=== PATIENT | female | born 1940 | race Caucasian/White ===

== ENCOUNTER 2017-02-19 00:27 | Day surgery (SDC) | payer MEDICARE ==
[2015-12-19 08:30] VITALS: Ht 149.9 cm; Wt 49.0 kg
--- NOTE | 2017-02-18 16:14 | RADIOLOGY IMAGING REPORT ---
FACILITY: [facility] - [place] PATIENT NAME: Pamela Correa : 1940 MR: [id number] V: [id number] EXAM DATE: ORDERING PHYSICIAN: SANTOS MONAE TECHNOLOGIST: Location: [facility] [place] Patient: Pamela Correa : 1940 Visit/Account:[id number] Date of Sevice: 02/18/2017 CHEST PA AND LAT INDICATION: Preoperative COMPARISON: None available FINDINGS: The cardiac silhouette is normal in size. Moderate sized gastric hernia in the midline lo wer chest. Bandlike scarring or subsegmental atelectasis in the right lower lung. Prominent epicardia l fat in the left lower lung adjacent to the cardiac apex versus chronic scarring in this area. Other webster clear lungs. Severe right glenohumeral joint degeneration. No acute osseous abnormality. Exagger ated thoracic kyphosis. Mild chronic wedging of multiple thoracic vertebral bodies. No pleural fluid. IMPRESSION: 1. No acute finding. 2. Moderate sized gastric/hiatal hernia. 3. Right basilar subsegmental atelectasis versus scarring. Left basilar scarring versus prominence of epicardial space fat. Report Dictated By: Lebron Baker MD at 02/18/2017 4:09 PM Report E-Signed By: Lebron Baker MD at 02/18/2017 4:11 PM WSN:[email or web address]
[2017-02-19] VITALS (7 sets, daily range): BP systolic 100–164; BP diastolic 47–86
[~2017-02-19] VITALS: Ht 149.9 cm; Wt 49.0 kg
[~2017-02-19 00:27] MED LIST: ALBU2.5V36 INH; ALBU8.5H IH; AMLO-96 PO; ASCO250T86 PO; ASPI81TA94 PO; BUSP7.5T7 PO; CA C1TAB11 PO; CHOL200021 PO; CHOL400C10 PO; DOXY25TA11 PO; FERR15DR22 PO; FERR325T24 PO; FLUT1DIS27 IH; FLUT1DIS28 IH; FLUT1DIS28 INH; Ferrous Sulfate PO; GABA-547 PO; GABA-549 PO; HYDR-317 PO; IPRA0.2S8 IH; LACT1CAP12; LISI5TAB25 PO; LOR5/325 PO; LOSA50TA72 PO; MELA3TAB31 PO; MULT-976 PO; Melatonin PO; OMEG300C PO; OXYC-373 PO; OXYGENHOME INH; PANT40TA65 PO; POTA-23 PO; ROPI0.5T25 PO; TRAM-420 PO; VALE100C2 PO; [UNRECOGNIZED DRUG - CODE] PO
[2017-02-19] MEDS ORDERED: PROPOFOL EMUL(*) 10MG/ML 20 ML 60 ML ONE (07:06)
[2017-02-19] MEDS ORDERED: LIDOCAINE MPF 1% 5 ML VIAL ONE (07:06)
--- NOTE | 2017-02-19 07:25 | Post Operative Progress Note ---
Post Operative Progress Note Date: Feb 19, 2017 Time: 10:21 Surgeon: syed Anesthesia: [place] Pre-Op Diagnosis: anemia and mucous discharge rectum Post-Op Diagnosis: large hiatal hernia and gastritis normal rectal stump Procedure(s): egd and sigmoidoscopy SANTOS MONAE MD Feb 19, 2017 07:25
--- NOTE | 2017-02-19 07:26 | Short(Outpt) Discharge Summary ---
Discharge Summary Reason for Hosp/Final Diag: (1) Rectal discharge Hospital Course & Plan: normal rectal stump (2) Anemia Status: Acute Hospital Course & Plan: large hiatal hernia and mild gastritis Departure Discharge to: Home Discharge Instructions Home Meds Reported Medications Melatonin (MELATONIN) 3 Mg Tablet, 2 TAB PO QHS 02/17/17 Oxycodone Hcl/Acetaminophen (OXYCODONE-ACETAMINOPHEN 5-325) Unknown Strength Tablet, PO PRN, TAB 02/17/17 Albuterol Sulfate 0.083% (ALBUTEROL SULFATE 0.083%) 2.5 Mg/3 Ml Vial.neb, 2.5 MG INH QID, INH 02/17/17 Albuterol Sulfate 90 Mcg/Act (PROAIR HFA 90 MCG/ACT) 8.5 Gm Hfa.aer.ad, 2-4 PUFF IH PRN, INHALER 02/17/17 Fluticasone/Salmeterol (ADVAIR 250-50 DISKUS) 1 Each Disk.w.dev, 1 PUFF IH BID 02/17/17 Oxygen (OXYGEN) Inha, 3 L INH cont., L 04/24/15 Ipratropium [place] (IPRATROPIUM BROMIDE) 0.2 Mg/1 Ml Solution, 1 ML IH QID 08/07/14 Ca Carbonate/Vitamin D3/Vit K (VIACTIV SOFT CHEW TABLET) 1 Each Tab.chew, 1 EACH PO DAILY, TAB.CHEW 12/14/13 Tramadol Hcl (TRAMADOL HCL) 50 Mg Tablet, 50-100 MG PO Q6H Y for PAIN 12/14/13 Cholecalciferol (Vitamin D3) (VITAMIN D) 2,000 Unit Capsule, 2000 UNIT PO DAILY , CAPSULE 12/14/13 Losartan Potassium (LOSARTAN POTASSIUM) 50 Mg Tablet, 50 MG PO QAM 11/21/13 Ropinirole Hcl (ROPINIROLE HCL) 0.5 Mg Tablet, 0.5 MG PO BID Y for SPASMS take 1/2 tab 2-3 times a day as needed for leg cramps 11/21/13 Aspirin (ASPIRIN) 81 Mg Tab.chew, 81 MG PO QDAY, TAB.CHEW TAKE 1 TABLET BY MOUTH EVERY DAY 11/21/13 Ascorbic Acid (VITAMIN C) 250 Mg Tablet, 250 MG PO QDAY 11/21/13 [place]-3 Fatty Acids (FISH OIL) 300 Mg Capsule, 300 MG PO QDAY, CAPSULE 11/21/13 Multivitamin (MULTIPLE VITAMINS) 1 Each Tablet, 1 EACH PO QDAY 11/21/13 Discontinued Reported Medications Buspirone Hcl (BUSPIRONE HCL) 7.5 Mg Tablet, 1 TAB PO QDAY, #10 TAB 02/17/17 Lisinopril (LISINOPRIL) Unknown Strength Tablet, PO QDAY, TAB 02/17/17 Gabapentin (GABAPENTIN) 100 Mg Capsule, 100 MG PO QDAYA, CAPSULE 02/17/17 Gabapentin (GABAPENTIN) 300 Mg Capsule, 100 MG PO TID, CAPSULE 12/18/15 Pantoprazole Sodium (PANTOPRAZOLE SODIUM) 40 Mg Tablet.dr, 40 MG PO QAM, TAB.SR 04/24/15 Discontinued Scripts Hydrocodone Bit/Acetaminophen (HYDROCODON-ACETAMINOPHEN 5-325) 1 Each Tablet, 1 EACH PO Q4-6H, #30 TAB Prov:SANTOS MONAE MD 05/07/15 [Melatonin] 3 MG TAB No Conflict Check, 6 MG PO QHS Y for INSOMNIA for 30 Days, TAB Prov:ASHLEY BLOCK MD 12/15/13 Diet: Regular Activity: As Tolerated SANTOS MONAE MD Feb 19, 2017 07:26
[2017-02-19] MEDS ORDERED: MIDAZOLAM 2 MG/2 ML VIAL IVP PRN (09:35)
[2017-02-19] MEDS ORDERED: NORMOSOL R SOLN(*) 1000 ML BAG 1,000 ML IV PRN (09:35)
[2017-02-19] MEDS ORDERED: LIDOCAINE/SOD BICARB 8.4% SYR ID ONE (09:35)
[2017-02-19] MEDS ORDERED: KETAMINE HCL 500 MG/10 ML VIAL ONE (09:48)
[2017-02-19] MEDS ORDERED: PANT40TA65 PO (11:09)
--- NOTE | 2017-02-19 11:54 | NACHTIGAL EGD ---
EVENT DATE: February 19, 2017 SURGEON: Jai Pritchett MD ANESTHESIOLOGIST: Pérez Davies MD ANESTHESIA: Sedation. PREOPERATIVE DIAGNOSIS Anemia. POSTOPERATIVE DIAGNOSIS Gastritis and a large hiatal hernia. PROCEDURE PERFORMED Esophagogastroduodenoscopy. DESCRIPTION OF PROCEDURE The patient was placed in left lateral decubitus position and given intravenous sedation. Flexible gastroscope was inserted. GE junction was at 30 cm, distinct. No ulceration or inflammation. No narrowing. Scope passed through this nicely. The proximal esophagus appeared to be normal. Upon entering the stomach, she had some findings suggestive of some gastritis with some punctate hemorrhages. We passed through the stomach, through the pylorus to the second and third portions of the duodenum, which were normal. The duodenal bulb was normal. The pylorus was normal. The antrum was normal. In the body of the stomach again we noted these gastritis findings. She had a large hiatal hernia. It appeared most of her stomach was herniated. The scope was retroflexed, and no fundic lesions were noted. Scope was then removed. MTDAbby
--- NOTE | 2017-02-19 11:58 | NACHTIGAL COLONOSCOPY ---
EVENT DATE: February 19, 2017 SURGEON: Jai Pritchett MD ANESTHESIOLOGIST: Pérez Davies MD ANESTHESIA: Sedation PREOPERATIVE DIAGNOSIS Mucous discharge from the rectum. POSTOPERATIVE DIAGNOSIS Normal rectal stump. PROCEDURE PERFORMED Sigmoidoscopy. DESCRIPTION OF PROCEDURE The patient was placed in the left lateral decubitus position, given intravenous sedation. Perianal examination was unremarkable. The skin was not excoriated. I could not identify any thrombosed or prolapsing hemorrhoids. Digital exam was unremarkable. The flexible colonoscope was inserted, advanced 15 cm. I could not advance any further than this. Stump was cleaned out well. I could not identify any mucosal abnormalities, no polyps or tumors , no inflammation. The patient tolerated the procedure well. No apparent complication. MTDD
== END 2017-02-19 12:15 | disposition home or self-care (01) ==
LOC: OR 00:27
PROVIDERS: ATTEND Surgery
DX: K62.89 Other specified diseases of anus and rectum (principal); D64.9 Anemia, unspecified; K29.70 Gastritis, unspecified, without bleeding; K44.9 Diaphragmatic hernia without obstruction or gangrene
CPT/HCPCS: 00811; 43235; 45330; 71046; J2001; J2704; J3490

== ENCOUNTER 2017-09-24 07:12 | Outpatient (RCR) | payer MEDICARE ==
[2015-12-19 08:30] VITALS: BMI 23.8
[2017-09-23 18:39] LABS: PLATELET COUNT, AUTOMATED 832 K/uL (150-450)
[~2017-09-24 07:12] MED LIST changes: -FERR15DR22 PO; +FERR15DR3 PO
--- NOTE | 2017-09-24 13:45 | RADIOLOGY IMAGING REPORT ---
FACILITY: [facility] - [place] PATIENT NAME: Pamela Correa : 1940 MR: [id number] V: [id number] EXAM DATE: ORDERING PHYSICIAN: RIDGE COREA TECHNOLOGIST: Location: [facility] Patient: Pamela Correa : 1940 Visit/Account:[id number] Date of Sevice: 09/24/2017 Exam type: CHEST PA AND LAT History: Shortness of breath Comparison: February 18, 2017. Findings: Bilateral lower lobe scarring again noted. There is hyperinflation of the lung ramírez. No evidence of acute infiltrates, pleural effusions or pulmonary edema. Cardiac silhouette is normal in size. T here Is a moderate size hiatal hernia and the retrocardiac space. There are moderate spondylotic ch anges of the thoracic spine with diffuse osteopenia and multiple compression fractures similar to the prior examination IMPRESSION: 1. Hyperinflation lung ramírez and bilateral lower lobe scarring although no evidence of acute pulmon darleen consolidation Report Dictated By: Sheila Cooper MD at 09/24/2017 1:39 PM Report E-Signed By: Sheila Cooper MD at 09/24/2017 1:41 PM WSN:[email or web address]
--- NOTE | 2017-09-24 14:20 | RADIOLOGY IMAGING REPORT ---
FACILITY: [facility] [place] PATIENT NAME: Pamela Correa : 1940 MR: [id number] V: [id number] EXAM DATE: ORDERING PHYSICIAN: RIDGE COREA TECHNOLOGIST: [facility] Patient: Pamela Correa : 1940 Visit/Account:[id number] Date of Sevice: 09/24/2017 ABDOMEN/PELVIS W/O CONTRAST HISTORY: UTIs, diverticulitis TECHNIQUE: Axial images acquired through the abdomen/pelvis. Coronal and sagittal reformatting also performed. No IV contrast administered. Dose Lowering Technique One of the following dose optimization techniques was utilized in the performance of this exam: Autom ated exposure control; adjustment of the mA and/or kV according to the patient's size; or use of an i terative reconstruction technique. Specific details can be referenced in the facility's radiology C T exam operational policy. COMPARISON: February 11, 2017 FINDINGS: Visualized lung bases: Pleural parenchymal scarring in the lung bases appear similar to the prior ex amination Hepatobiliary: Cholelithiasis although no evidence for ductal dilatation Spleen: Negative. Adrenals: Mild thickening of the left adrenal gland Pancreas: Negative. Kidneys ureters and bladder: Right renal cysts. Nonobstructing calculi in the left renal collecting system measuring up to 3 mm no evidence of hydron ephrosis or hydroureter . There is a moderate amount of air seen within the urinary bladder Genitalia: Negative. GI: There are postsurgical changes from a left hemicolectomy with an ostomy in the left mid abdomen. Small bowel anastomosis again seen in the ileum no evidence of bowel obstruction. Incompletely patricia ged is a large hiatal hernia. An ovoid hypodense collection is again seen projecting just posterior to the greater curvature the stomach this may represent residual pseudocyst. Vessels/spaces/nodes: Extensive vascular calcifications are seen throughout the abdomen and pelvis Bones/soft tissues: Extensive spondylotic changes of the lumbar spine and a eight millimeter anterol isthesis of L4 with respect L5 appears similar to the prior study Additional findings: None pertinent. IMPRESSION: Pleural parenchyma scarring the lung bases Cholelithiasis although no evidence of a ductal dilatation Nonobstructing nephrolithiasis left kidney measuring up to 3 mm There is a moderate amount of air seen within the urinary bladder. Although this could be related to recent procedure differential diagnosis would include infection with gas-forming organism or a fistu la between the bladder and GI tract. Postsurgical changes from a left hemicolectomy with ostomy in the left mid abdomen. Additional posto perative changes of the small bowel in the right lower quadrant are present Incompletely imaged is a large hiatal hernia Ovoid hypodense collection projecting just posterior to the greater curvature the stomach may represe nt a residual pseudocyst as was present on the prior study. Report Dictated By: Sheila Cooper MD at 09/24/2017 1:57 PM Report E-Signed By: Sheila Cooper MD at 09/24/2017 2:16 PM WSN:[email or web address]
[2017-09-25] MEDS ORDERED: LISI20TA29 PO (13:58)
== END 2017-09-24 18:00 | disposition home or self-care (01) ==
LOC: CT 07:12
PROVIDERS: ATTEND Urology
DX: K80.20 Calculus of gallbladder without cholecystitis without obstruction (principal); B96.20 Unspecified Escherichia coli [E. coli] as the cause of diseases classified elsewhere; N20.0 Calculus of kidney; Z90.49 Acquired absence of other specified parts of digestive tract; Z93.3 Colostomy status; K44.9 Diaphragmatic hernia without obstruction or gangrene
CPT/HCPCS: 36415; 71046; 74176; 81001; 82040; 82247; 82310; 82374; 82435; 82565; 82947; 84075; 84132; 84155; 84295; 84450; 84460; 84520; 85025; 87077; 87088; 87186

== ENCOUNTER 2017-09-28 02:16 | Day surgery (SDC) | payer MEDICARE ==
[2015-12-19 08:30] VITALS: Ht 147.3 cm; Wt 45.8 kg
--- NOTE | 2017-09-25 15:11 | HISTORY AND PHYSICAL ---
DATE OF ADMISSION: September 28, 2017 PRIMARY DIAGNOSIS Recurrent urinary tract infections HISTORY OF PRESENT ILLNESS The patient is a 77-year-old white female who was referred to Urology Clinic by Dr. Wen for recurrent urinary tract infections over the past several months. She has been on multiple antibiotics over that ensuing time. She has had some urine cultures in the past which have positive for E. coli as well as multiple organisms. The patient states that when she is on antibiotics, her symptoms of dysuria and lower abdominal pain greatly [place], but two to five days after stopping medicines, her symptoms returned. She denies history of kidney infection, high fever, chills, gross hematuria, pneumaturia, or diffuse abdominal pain. She has had several CTs over the past several years for complications of diverticular abscess, which all have been showing normal kidneys. However, on my review of these films, there was a small amount of air noted in the bladder in December 2015 which had not been present on a film done in July 2014. CT scan performed in January 2017 also showed a small amount of air in the bladder. Most recent film two days ago revealed a 2 mm right lower pole calcification and also a significant amount of air in the interior bladder. Current urine is growing out gram-negative aurelio. Most recent GI history began in January 2014 when she presented with a diverticular abscess which was originally percutaneously drained and then underwent a sigmoid colectomy with colostomy and Susan pouch. She had a colonoscopy of the stoma and stump in March 2014 which was normal except for diverticula. In April 2014, she underwent colostomy takedown, however, had a small bowel necrosis with perforation which resulted in exploration with small bowel resection and another colostomy. A month later, she developed an intra- abdominal abscess and required CT drainage times two. 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 In November 2014, she was noted to have a small bowel anastomotic stricture and underwent colonoscopy with balloon dilation of this. In April 2015, she underwent exploratory laparotomy with enterectomy with a primary anastomosis and excision of the enterocutaneous fistula. In December 2015, she presented with a small bowel obstruction which resolved after conservative treatment. She last underwent a negative EGD and stump colonoscopy in February of this past year. These findings were discussed with the patient and her family with primary concern being a fistula tract between her GI tract and bladder. She is now being brought to the operating room for planned anesthetic cystoscopy with exam unremarkable anesthesia. PAST MEDICAL HISTORY 1. Neuropathy with restless leg syndrome. 2. Hypercholesterolemia. 3. Hypertension. 4. COPD. 5. Hiatal hernia. 6. Diverticulitis. 7. Degenerative joint disease. 8. History of UTIs. PAST SURGICAL HISTORY 1. Ear surgery. 2. Bilateral cataracts. 3. Appendectomy age 17. 4. Multiple GI surgeries as per HPI. SOCIAL HISTORY Patient is , lives in [place], [place]. She has a significant smoking history, however, stopped approximately eight years ago. CURRENT MEDICATIONS 1. Melatonin. 2. Protonix. 3. Requip. 4. Atrovent. 5. Albuterol. 6. Aspirin. 7. Multivitamins. 8. Flovent. 9. Tramadol. 10. Percocet. ALLERGIES STATINS, HYDROCODONE, and IODINE. REVIEW OF SYSTEMS Patient denies chest pain, productive cough, fever, chills, bleeding disorder, chronic headaches, or liver disease. PHYSICAL EXAMINATION GENERAL: Patient is a well-developed, thin, white female in no acute distress. HEENT: Normocephalic, atraumatic. CHEST: Clear to auscultation bilaterally. CARDIOVASCULAR: Regular rhythm. ABDOMEN: Soft, nontender. Her stoma is pink and viable. She has no peritoneal signs. GENITOURINARY: Deferred to the operating room. EXTREMITIES: Without clubbing, cyanosis, or edema. NEUROLOGIC: Nonfocal. IMPRESSION A 77-year-old white female with a history of multiple intra-abdominal procedures from diverticular abscesses, now with persistent urinary tract infections with air in bladder on CT scan for the past year and a half, concerning for fistula tract between her bladder and gastrointestinal tract. PLAN Will perform anesthetic cystoscopy, possible bilateral retrograde pyelograms, cystogram, and exam under anesthesia. STEPHANIED
[~2017-09-28] VITALS: Ht 147.3 cm; Wt 45.8 kg
[~2017-09-28 02:16] MED LIST changes: +LISI20TA29 PO
[2017-09-28 08:50] VITALS: BP 143/55
[2017-09-28] MEDS ORDERED: PROPOFOL EMUL(*) 10MG/ML 20 ML 0 ML ONE (08:50)
[2017-09-28] MEDS ORDERED: fentaNYL CITR 100 MCG/2 ML AMP ONE ×2 (08:51→12:35)
[2017-09-28] MEDS ORDERED: LIDOCAINE/SOD BICARB 8.4% SYR ID ONE (08:55)
[2017-09-28] MEDS ORDERED: NORMOSOL R SOLN(*) 1000 ML BAG 1,000 ML IV PRN (08:55)
[2017-09-28] MEDS ORDERED: ceFAZolin(*) 1 GM VIAL 1 GM, GENTAMICIN(*) 80 MG/2 ML VIAL 60 MG in NS 0.9% IRRIGATION ... IR ONE (08:55)
[2017-09-28] MEDS ORDERED: MIDAZOLAM 2 MG/2 ML VIAL IVP PRN (08:55)
[2017-09-28] MEDS ORDERED: LEVOFLOXACIN/D5W*500 MG/100 ML 100 ML IVPB ONE (08:55)
[2017-09-28] MEDS ORDERED: IOPAMIDOL-200 50 ML VIAL IS ONE (10:36)
[2017-09-28] MEDS ORDERED: DEXAMETHASONE SOD 4 MG/ML VIAL ONE ×2 (10:55→12:14)
[2017-09-28] MEDS ORDERED: ONDANSETRON 4 MG/2 ML VIAL ONE (10:57)
[2017-09-28] MEDS ORDERED: diphenhydrAMINE 50 MG/ML VIAL ONE (11:22)
[2017-09-28] MEDS ORDERED: methylPREDNIS SUCC 125 MG/2ML ONE (11:30)
[2017-09-28] MEDS ORDERED: CHARCOAL ACT LIQ 25 GM/120 ML PO ONE (12:20)
[2017-09-28] MEDS ORDERED: PHEN200T32 PO (12:53)
[2017-09-28] MEDS ORDERED: OXYB10TA21 PO (12:53)
[2017-09-28] MEDS ORDERED: SULF-198 PO (12:54)
[2017-09-28 13:30] VITALS: BP 130/58
--- NOTE | 2017-09-28 13:37 | PIERCE CYSTOSCOPY ---
EVENT DATE: September 28, 2017 SURGEON: Khoi Morales MD ANESTHESIOLOGIST: Brandon Mojica M.D. ANESTHESIA: General PREOPERATIVE DIAGNOSES Recurrent urinary tract infections. 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 PROCEDURES PERFORMED 1. Cystoscopy with exam under anesthesia. 2. Right internal JJ ureteral stent placement. ESTIMATED BLOOD LOSS Minimal. IV FLUIDS Crystalloids. DRAINS 6-Iranian x 24 cm Contour stent on right and 16-Iranian Gagnon catheter. PATHOLOGY None.. COMPLICATIONS None. CONDITION The patient was taken to recovery room awake and in stable condition. STATEMENT OF MEDICAL NECESSITY The patient is a 77-year-old white female with a prolonged GI history over the past several years which began with diverticular abscess. She subsequently underwent colostomy, which on takedown was complicated by small bowel necrosis and breakdown, which resulted in intra-abdominal abscesses, which required CT percutaneous drainage. 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 She was then noted to have an anastomotic stricture and small bowel anastomosis and underwent balloon dilation for this. Most recently, she had a small bowel obstruction which resolved spontaneously approximately nine months ago. She was referred to Urology Clinic by Dr. Wen for recurrent urinary tract infections, which patient states has been going on for several months. A recent CT scan performed showed a moderate amount of air in the bladder in the anterior portion, consistent with either a gas-forming organism and/or colovesical fistula formation. On review of her prior CT scans, it appeared that she had a small amount of air on her last two scans dating back several months. She is now being brought to the operating room for planned exam under anesthesia cystoscopy and any other indicated procedure. Of note, the patient also gives a history of significant reaction to iodine contrast many years ago with reported hives, rash and other unknown symptoms by her report. DESCRIPTION OF OPERATION PERFORMED The patient was brought to the operating room and after general anesthetic was obtained, she was placed in the dorsal lithotomy position and prepped and draped in the usual sterile manner. Anesthetic cystoscopy was performed with the 21-Iranian sheath and both 30-degree and 70-degree lenses. She had a normal appearing urethra. She had mild squamous metaplasia of the trigone. She had slit-like ureteral orifices in the spectrum of the trigone. There was a mild mass effect just superior and posterior to the right ureteral orifice and approximately 1-1/2 to 2 cm above the right ureteral orifice with an area of dimpled mucosa consistent with a fistulous tract. Given the close location of this questionable fistula tract to the course of the ureter, I opted to place a 6-Iranian x 24 cm Contour stent. First, a 0.35 wire was advanced into the lumen of the ureter and advanced up to the renal pelvis by fluoroscopy. This wire was then used to place the 6x24 stent. The wire was removed. She was noted to have good coiling in the renal pelvis and good coiling in the bladder by direct vision. Given the unknown significance of her iodine contrast, I debated whether to perform retrograde pyelogram or a fistulogram at this point. I spoke to Dr. Olmos on General Surgery, who was somewhat familiar with this lady' s history. He was in agreement to try an activated charcoal test to see if this fistula tract is located to her part that is continuous to her colostomy. If this is positive, this would confirm this as the segment involved. If not, we may proceed with some type of evaluation from the stump. Therefore, a Gagnon catheter was placed. She was awakened in the operating room and taken to the recovery area awake and in stable condition. PLAN We will give her some activated charcoal in the recovery room. We will have her collect her urine over the first 24 hours and then perform microscopic examination for evaluation of activated charcoal. She is also being discharged home on Pyridium, Ditropan and Bactrim. GAYLA
[2017-09-28 13:57] VITALS: BP 138/70
[2017-09-28 14:18] VITALS: BP 127/97
--- NOTE | 2017-09-28 16:07 | RADIOLOGY IMAGING REPORT ---
FACILITY: [facility] [place] PATIENT NAME: Pamela Correa : 1940 MR: [id number] V: [id number] EXAM DATE: ORDERING PHYSICIAN: RIDGE COREA TECHNOLOGIST: Location: [facility] Patient: Pamela Correa : 1940 Visit/Account:[id number] Date of Sevice: 09/28/2017 ADDENDUM #1 There was a voice recognition error in the second line of the findings section which should read the total fluoroscopy time was 0.19 minutes Report Dictated By: Sheila Cooper MD at 10/01/2017 8:38 AM Report E-Signed By: Sheila Cooper MD at 10/01/2017 8:40 AM ORIGINAL REPORT Exam type: C-ARM FLUORO 1 HR History: HX OF MULTIPLE UTI'S, EXAM UNDER ANESTHESIA Comparison: CT abdomen pelvis September 24, 2017 Findings: 10 portable intraoperative C-arm spot views of the abdomen pelvis were submitted. The total prostate be time was 0.19 minutes. The fluoroscopy dose was 7.79 mGray. A cystoscope projects over the lower pelvis. Images demonstrate placement of the guidewire over the expected location of the right ureter. On the final image a right ureteral stent is noted IMPRESSION: 1. As above Report Dictated By: Sheila Cooper MD at 09/28/2017 3:58 PM Report E-Signed By: Sheila Cooper MD at 09/28/2017 4:01 PM WSN:[email or web address]
== END 2017-09-28 13:30 | disposition home or self-care (01) ==
LOC: OR 02:16
PROVIDERS: ATTEND Urology
DX: Z87.440 Personal history of urinary (tract) infections (principal)
CPT/HCPCS: 52332; 76000; C1758; C1769; C1894; C2617; J1100; J1200; J1956; J2405; J2930; J3010; Q9966; J2704

== ENCOUNTER → 2017-09-29 | Outpatient (REF) | payer MEDICARE ==
[2015-12-19 08:30] VITALS: BMI 23.8
[~2017-09-29] MED LIST changes: +OXYB10TA21 PO; +PHEN200T32 PO; +SULF-198 PO
== END ==
LOC: ZZSENDIN 16:33
PROVIDERS: ATTEND Urology
DX: N39.0 Urinary tract infection, site not specified (principal)
CPT/HCPCS: 81001

== ENCOUNTER 2017-10-08 12:01 | Inpatient (IN) | payer MEDICARE ==
[~2017-10-08] VITALS: Ht 147.3 cm; Wt 49.9 kg
[~2017-10-08 12:01] MED LIST changes: -LEVO750T44 PO; -OXYC1TAB78 PO
[2017-10-08] MEDS ORDERED: NS(*) 0.9% 1000 ML BAG 1,000 ML IV ONE ×2 (12:12→13:20)
--- NOTE | 2017-10-08 12:12 | ER Report ---
History and Physical Time Seen By MD: 12:12 HPI/ROS CHIEF COMPLAINT: Abdominal pain, no output of her ostomy 3 days, back pain HISTORY OF PRESENT ILLNESS: 77-year-old female patient presents to emergency room with complaint of abdominal pain, no output of her ostomy 3 days as well as back pain. Patient states she's been having back pain for the past 2 weeks. She denies any injury. She states that she has worsening pain with any type of movement. She states she is not had any loss of bladder control. She states that she has abdominal pain as well. She states that she is hurting all over. She states that she has not had any vomiting but states she has been nauseated. Patient states that she has seen Dr. Morales as well as Dr. Wen for urinary tract infections, has been on several routes of antibiotics. She states that she had a cystoscopy done with Dr. Morales who was concerned there may be a fistula between her bladder and her colon. She states she has pain that seems worse in the lower abdomen. REVIEW OF SYSTEMS: Respiratory: No cough, no dyspnea. Cardiovascular: No chest pain, no palpitations. Gastrointestinal: As noted above Musculoskeletal: As noted above Allergies: Coded Allergies: banana (Verified Allergy, Severe, ITCHING EYES, EARS, THROAT AND BODY, 10/08/17) honey (Verified Allergy, Severe, ITCHING ALL OVER, 10/08/17) iodine (Verified Allergy, Severe, HIVES AND ITCHING ALL OVER, DIZZINES, 10/08/17) morphine (Verified Allergy, Severe, BACK ACHES, 10/08/17) Dtqzoqs-Asj-Xjg Reductase Inhibitor (Verified Allergy, Intermediate, MUSCLE CRAMPING, 10/08/17) milk (Verified Allergy, Intermediate, BLOATING REALLY BAD, 10/08/17) latex (Verified Allergy, Mild, BECAUSE SHE ITCHES IN HER EARS WITH BANANAS, 10/08/17) strawberry (Verified Allergy, Mild, ITCHING, 10/08/17) hydromorphone (Verified Adverse Reaction, Unknown, 10/08/17) causes generalized itching Uncoded Allergies: IODINE SALT (Allergy, Severe, ITCHING ALL OVER, 08/07/14) Home Meds Reported Medications Sulfamethoxazole/Trimet 800-160 Mg Tab (BACTRIM DS TABLET) 1 Each Tablet, 1 TAB PO Q12H, #14 TAB 09/28/17 Phenazopyridine Hcl (PHENAZOPYRIDINE HCL) 200 Mg Tablet, 200 MG PO TID PRN for BURNING WITH URINATION, #30 TAB 09/28/17 Oxybutynin Chloride (DITROPAN XL) 10 Mg Tab.er.24, 10 MG PO QDAY PRN for URGENCY, #10 TAB 09/28/17 Lisinopril (LISINOPRIL) 20 Mg Tablet, 20 MG PO QDAY, TAB 09/25/17 Pantoprazole Sodium (PANTOPRAZOLE SODIUM) 40 Mg Tablet.dr, 40 MG PO QDAY, #90 TAB.SR 02/19/17 Melatonin (MELATONIN) 3 Mg Tablet, 2 TAB PO QHS 02/17/17 Oxycodone Hcl/Acetaminophen (OXYCODONE-ACETAMINOPHEN 5-325) Unknown Strength Tablet, PO PRN, TAB 02/17/17 Albuterol Sulfate 0.083% (ALBUTEROL SULFATE 0.083%) 2.5 Mg/3 Ml Vial.neb, 2.5 MG INH QID, INH 02/17/17 Albuterol Sulfate 90 Mcg/Act (PROAIR HFA 90 MCG/ACT) 8.5 Gm Hfa.aer.ad, 2-4 PUFF IH PRN, INHALER 02/17/17 Fluticasone/Salmeterol (ADVAIR 250-50 DISKUS) 1 Each Disk.w.dev, 1 PUFF IH BID 02/17/17 Oxygen (OXYGEN) Inha, 3 L INH cont., L 04/24/15 Ipratropium [place] (IPRATROPIUM BROMIDE) 0.2 Mg/1 Ml Solution, 1 ML IH QID 08/07/14 Ca Carbonate/Vitamin D3/Vit K (VIACTIV SOFT CHEW TABLET) 1 Each Tab.chew, 1 EACH PO DAILY, TAB.CHEW 12/14/13 Tramadol Hcl (TRAMADOL HCL) 50 Mg Tablet, 50-100 MG PO Q6H PRN for PAIN 12/14/13 Cholecalciferol (Vitamin D3) (VITAMIN D) 2,000 Unit Capsule, 2000 UNIT PO DAILY, CAPSULE 12/14/13 Ropinirole Hcl (ROPINIROLE HCL) 0.5 Mg Tablet, 0.5 MG PO BID PRN for SPASMS take 1/2 tab 2-3 times a day as needed for leg cramps 11/21/13 Aspirin (ASPIRIN) 81 Mg Tab.chew, 81 MG PO QDAY, TAB.CHEW TAKE 1 TABLET BY MOUTH EVERY DAY 11/21/13 Ascorbic Acid (VITAMIN C) 250 Mg Tablet, 250 MG PO QDAY 11/21/13 [place]-3 Fatty Acids (FISH OIL) 300 Mg Capsule, 300 MG PO QDAY, CAPSULE 11/21/13 Multivitamin (MULTIPLE VITAMINS) 1 Each Tablet, 1 EACH PO QDAY 11/21/13 Past Medical/Surgical History Patient has a past medical history of hypertension, hyperlipidemia, asthma, pneumonia, COPD, hiatal hernia, frequent UTI, arthritis, osteoporosis, left ankle fracture, back pain, anemia, alcohol use. Patient has surgical history of laparoscopy, appendectomy, colostomy, bowel perforations, ear surgery, bilateral cataract surgery. Reviewed Nurses Notes: Yes Hx Smoking: Yes (SMOKED FOR 50 YEARS, 1 PPD quit 2009) Smoking Status: Former Smoker, Heavy Tobacco Smoker Exposure to Second Hand Smoke?: No Hx Substance Use Disorder: No Hx Alcohol Use: Yes ("not for a long time.") Constitutional Vital Sign - Last 24 Hours 10/08/17 10/08/17 10/08/17 10/08/17 12:01 12:03 12:04 12:30 Temp 98.3 Pulse ??? 109 Resp 18 B/P (MAP) 112/94 (100) 112/94 103/61 (75) Pulse Ox 91 O2 Delivery Nasal Cannula 10/08/17 10/08/17 10/08/17 10/08/17 12:31 13:00 13:01 13:31 Pulse 95 95 93 B/P (MAP) 114/55 (74) Pulse Ox 91 92 95 10/08/17 10/08/17 10/08/17 10/08/17 13:34 14:00 14:00 14:30 Pulse 92 92 B/P (MAP) 122/52 (75) 129/58 (81) 129/58 (81) 142/60 (87) Pulse Ox 92 94 Physical Exam General Appearance: The patient is alert, has no immediate need for airway protection and no current signs of toxicity. Respiratory: Chest is non tender, lungs are clear to auscultation. Cardiac: regular rate and rhythm Gastrointestinal: Abdomen is soft and tender in the right lower quadrant, no masses, bowel sounds normal. Musculoskeletal: Neck: Neck is supple and non tender. Extremities have full range of motion and are non tender. Skin: No rashes or lesions. DIFFERENTIAL DIAGNOSIS: After history and physical exam differential diagnosis was considered for abdominal pain including but not limited to appendicitis, cholecystitis, gastritis and urinary tract infection. Also included in the differential for back pain including but not limited to muscular pain, herniated disc, spine fracture, intra-abdominal causes and urinary tract infection. Medical Decision Making Data Points Result Diagram: 10/08/17 1206 10/08/17 1206 Laboratory Hematology Test 10/08/17 12:06 10/08/17 12:52 Red Blood Count 4.19 M/uL (4.17-5.56) Mean Corpuscular Volume 86.8 fL (80.0-96.0) Mean Corpuscular Hemoglobin 27.5 pg (26.0-33.0) Mean Corpuscular Hemoglobin Concent 31.7 g/dL (32.0-36.0) Red Cell Distribution Width 16.7 % (11.5-14.5) Mean Platelet Volume 7.1 fL (7.2-11.1) Neutrophils (%) (Auto) 79.2 % (39.4-72.5) Lymphocytes (%) (Auto) 13.2 % (17.6-49.6) Monocytes (%) (Auto) 6.0 % (4.1-12.4) Eosinophils (%) (Auto) 0.7 % (0.4-6.7) Basophils (%) (Auto) 0.9 % (0.3-1.4) Nucleated RBC Relative Count (auto) 0.1 /100WBC Neutrophils # (Auto) 10.1 K/uL (2.0-7.4) Lymphocytes # (Auto) 1.7 K/uL (1.3-3.6) Monocytes # (Auto) 0.8 K/uL (0.3-1.0) Eosinophils # (Auto) 0.1 K/uL (0.0-0.5) Basophils # (Auto) 0.1 K/uL (0.0-0.1) Nucleated RBC Absolute Count (auto) 0.01 K/uL Sodium Level 135 mmol/L (137-145) Potassium Level 5.4 mmol/L (3.5-5.0) Chloride Level 95 mmol/L (98-107) Carbon Dioxide Level 22 mmol/L (22-31) Blood Urea Nitrogen 35 mg/dl (7-18) Creatinine 2.20 mg/dl (0.52-1.04) Glomerular Filtration Rate Calc 21.6 Random Glucose 115 mg/dl (75-110) Lactate 4.3 mmol/L (0.7-2.1) Calcium Level 10.9 mg/dl (8.4-10.2) Total Bilirubin 1.0 mg/dl (0.2-1.3) Aspartate Amino Transf (AST/SGOT) 20 U/L (0-35) Alanine Aminotransferase (ALT/SGPT) 21 U/L (0-56) Alkaline Phosphatase 141 U/L (0-126) C-Reactive Protein 7.4 mg/dl (<1.0) Total Protein 8.4 g/dl (6.3-8.2) Albumin 4.4 g/dl (3.5-5.0) Amylase Level 104 U/L (0-110) Lipase 291 U/L (23-300) Urine Color Nadine Urine Clarity Slightly-cloudy Urine pH 6.0 pH (4.8-9.5) Urine Specific Rock 1.018 Urine Protein 30 mg/dL (NEGATIVE) Urine Glucose (UA) 50 mg/dL (NEGATIVE) Urine Ketones Negative mg/dL (NEGATIVE) Urine Blood Moderate (NEGATIVE) Urine Nitrite Positive (NEGATIVE) Urine Bilirubin Negative (NEGATIVE) Urine Urobilinogen 4.0 mg/dL (0.2-1.9) Urine Leukocyte Esterase Small (NEGATIVE) Urine RBC 671 /HPF (0-2/HPF) Urine WBC 153 /HPF (0-5/HPF) Urine WBC Clumps Many /HPF Urine Squamous Epithelial Cells Many /LPF (NONE-FEW) Urine Bacteria Many /HPF (NONE-FEW) Urine Hyaline Casts Many /LPF (NONE-FEW) Urine Mucus Few /HPF (NONE-FEW) Chemistry Test 10/08/17 12:06 10/08/17 12:52 White Blood Count 12.7 k/uL (4.5-11.0) Red Blood Count 4.19 M/uL (4.17-5.56) Hemoglobin 11.5 g/dL (12.0-16.0) Hematocrit 36.4 % (34.0-47.0) Mean Corpuscular Volume 86.8 fL (80.0-96.0) Mean Corpuscular Hemoglobin 27.5 pg (26.0-33.0) Mean Corpuscular Hemoglobin Concent 31.7 g/dL (32.0-36.0) Red Cell Distribution Width 16.7 % (11.5-14.5) Platelet Count 765 K/uL (150-450) Mean Platelet Volume 7.1 fL (7.2-11.1) Neutrophils (%) (Auto) 79.2 % (39.4-72.5) Lymphocytes (%) (Auto) 13.2 % (17.6-49.6) Monocytes (%) (Auto) 6.0 % (4.1-12.4) Eosinophils (%) (Auto) 0.7 % (0.4-6.7) Basophils (%) (Auto) 0.9 % (0.3-1.4) Nucleated RBC Relative Count (auto) 0.1 /100WBC Neutrophils # (Auto) 10.1 K/uL (2.0-7.4) Lymphocytes # (Auto) 1.7 K/uL (1.3-3.6) Monocytes # (Auto) 0.8 K/uL (0.3-1.0) Eosinophils # (Auto) 0.1 K/uL (0.0-0.5) Basophils # (Auto) 0.1 K/uL (0.0-0.1) Nucleated RBC Absolute Count (auto) 0.01 K/uL Glomerular Filtration Rate Calc 21.6 Lactate 4.3 mmol/L (0.7-2.1) Calcium Level 10.9 mg/dl (8.4-10.2) Total Bilirubin 1.0 mg/dl (0.2-1.3) Aspartate Amino Transf (AST/SGOT) 20 U/L (0-35) Alanine Aminotransferase (ALT/SGPT) 21 U/L (0-56) Alkaline Phosphatase 141 U/L (0-126) C-Reactive Protein 7.4 mg/dl (<1.0) Total Protein 8.4 g/dl (6.3-8.2) Albumin 4.4 g/dl (3.5-5.0) Amylase Level 104 U/L (0-110) Lipase 291 U/L (23-300) Urine Color Nadine Urine Clarity Slightly-cloudy Urine pH 6.0 pH (4.8-9.5) Urine Specific [place] 1.018 Urine Protein 30 mg/dL (NEGATIVE) Urine Glucose (UA) 50 mg/dL (NEGATIVE) Urine Ketones Negative mg/dL (NEGATIVE) Urine Blood Moderate (NEGATIVE) Urine Nitrite Positive (NEGATIVE) Urine Bilirubin Negative (NEGATIVE) Urine Urobilinogen 4.0 mg/dL (0.2-1.9) Urine Leukocyte Esterase Small (NEGATIVE) Urine RBC 671 /HPF (0-2/HPF) Urine WBC 153 /HPF (0-5/HPF) Urine WBC Clumps Many /HPF Urine Squamous Epithelial Cells Many /LPF (NONE-FEW) Urine Bacteria Many /HPF (NONE-FEW) Urine Hyaline Casts Many /LPF (NONE-FEW) Urine Mucus Few /HPF (NONE-FEW) Urinalysis Test 10/08/17 12:52 Urine Color Nadine Urine Clarity Slightly-cloudy Urine pH 6.0 pH (4.8-9.5) Urine Specific [place] 1.018 Urine Protein 30 mg/dL (NEGATIVE) Urine Glucose (UA) 50 mg/dL (NEGATIVE) Urine Ketones Negative mg/dL (NEGATIVE) Urine Blood Moderate (NEGATIVE) Urine Nitrite Positive (NEGATIVE) Urine Bilirubin Negative (NEGATIVE) Urine Urobilinogen 4.0 mg/dL (0.2-1.9) Urine Leukocyte Esterase Small (NEGATIVE) Urine RBC 671 /HPF (0-2/HPF) Urine WBC 153 /HPF (0-5/HPF) Urine WBC Clumps Many /HPF Urine Squamous Epithelial Cells Many /LPF (NONE-FEW) Urine Bacteria Many /HPF (NONE-FEW) Urine Hyaline Casts Many /LPF (NONE-FEW) Urine Mucus Few /HPF (NONE-FEW) EKG/Imaging Imaging EXAMINATION: CT abdomen and pelvis without IV contrast CT lumbar spine without IV contrast (reformatted) HISTORY: Abdominal pain/back pain. COMPARISON: CT abdomen and pelvis from 12/18/2015 and 09/24/2017 TECHNIQUE: Contiguous axial images were obtained from the top of the lung bases through the ischial tuberosities without IV contrast. Sagittal and coronal reformatted images are also submitted. Source data was reformatted at thin slice collimation and small field of view over the lumbar spine. Stored on PACS are reformatted axial, sagittal and coronal lumbar spine series. One of the following dose optimization techniques was utilized in the performance of this exam: Automated exposure control; adjustment of the mA and/or kV according to the patient's size; or use of an iterative reconstruction technique. Specific details can be referenced in the facility's radiology CT exam operational policy. FINDINGS: CT ABDOMEN AND PELVIS: Liver/biliary: The liver is homogeneous. There are several calcified gallstones layering in the gallbladder. There is no biliary ductal dilatation. Pancreas: Negative. Spleen: Negative. Adrenal glands: Negative. Kidneys: There is a right ureteral stent which is new. Nonobstructing punctate left renal stone is unchanged. There is no hydronephrosis. Simple right renal cyst. Pelvic structures: Small amount of air in the urinary bladder. Bowel: Moderate sized hiatal hernia is unchanged. Partial left hemicolectomy with left lower quadrant ostomy. There are no dilated loops of bowel. Peritoneum/retroperitoneum/mesenteries: Negative. Vessels: Extensive atherosclerotic calcifications. Musculoskeletal/body wall: Bony structures are osteopenic. Lymph nodes: Negative. Lower chest: Pleural parenchymal scarring at the lung bases is unchanged. CT LUMBAR SPINE: Alignment: Grade 1 anterolisthesis at L4-5 measuring 8 mm is unchanged. There is rightward curvature of the lumbar spine with the apex at L2-3. Vertebral bodies: Bony structures are osteopenic. There is a chronic superior endplate fracture of L3 and 3 chronic compression fracture of T11, with 50% anterior height loss. No acute fracture is visualized. Posterior elements: Multilevel facet hypertrophy. Disc Spaces: Moderate to severe disc space narrowing and endplate sclerosis at L1-2 and L4-5 is unchanged. Soft tissues: Negative. IMPRESSION: 1. No explanation for acute abdominal pain. 2. Cholelithiasis. 3. Right ureteral stent is new, and is well-positioned. 4. Punctate nonobstructing left renal stones, unchanged. 5. Trace air in the urinary bladder is decreased. 6. Left lower quadrant ostomy, without evidence of bowel obstruction. 7. Moderate hiatal hernia, unchanged. 8. Osteopenia without evidence of acute fracture of the lumbar spine. 9. Chronic superior endplate fracture of L3 and chronic compression fracture of T11, unchanged. 10. Multilevel degenerative disc disease and facet arthropathy, and grade 1 degenerative anterolisthesis at L4-5, unchanged. Report Dictated By: Nayeli Rao MD at 10/08/2017 1:26 PM Report E-Signed By: Nayeli Rao MD at 10/08/2017 1:40 PM ED Course/Re-evaluation ED Course Patient was admitted to an exam room, history and physical were obtained. Differential diagnoses were considered. On examination lungs are clear, heart is regular, abdomen is soft and tender in the lower quadrants. A CBC, CMP, Urinalysis were obtained. Patient had an elevated white count of 12,000, CMP showed that her creatinine gone from 0.8 on September 23 to 2.2 today. BUN was also elevated. A lactate was checked and that was 4.3. CT scan of the abdomen and pelvis showed no acute findings. CT scan of the lumbar spine also showed no acute findings. I discussed the case with Dr. Licea, hospitalist, who agreed with admission. He requested that I speak with Dr. Morales to see what his thoughts were about they stand and what types of antibiotics she needs to be on. I did call and speak with Dr. Morales, urologist, who felt the patient likely needed a Gagnon catheter as well as a broad-spectrum antibiotic which covers forgot parker. I was also able to speak with Dr. Sandy and give him a heads up that the patient was admitted to the hospital and he will be seen in the clinic tomorrow. He stated he would supply of this with the patient tomorrow. Patient verbalized agreement with plan. Patient received 4 doses of 50 g of fentanyl and had persistent pain. I believe that will likely be improved as infection resolves. Decision to Disposition Date: Oct 08, 2017 Decision to Disposition Time: 14:20 Depart Departure Latest Vital Signs Vital Signs Date Time Temp Pulse Resp B/P (MAP) Pulse Ox O2 Delivery O2 Flow Rate FiO2 10/08/17 14:30 92 142/60 (87) 94 10/08/17 12:04 98.3 18 Nasal Cannula Impression: Primary Impression: Sepsis Additional Impression: UTI (urinary tract infection) Condition: Condition Unchanged Disposition: Admitted from ER Referrals: EUN WEN DO (PCP) Problem Qualifiers Primary Impression: Sepsis Sepsis type: sepsis due to unspecified organism Qualified Codes: A41.9 - Sepsis, unspecified organism Additional Impression: UTI (urinary tract infection) Urinary tract infection type: acute cystitis Hematuria presence: with hematuria Qualified Codes: N30.01 - Acute cystitis with hematuria ANNMARIE FAITH Oct 08, 2017 12:12
[2017-10-08] MEDS ORDERED: fentaNYL CITR 100 MCG/2 ML AMP IVP ONE ×4 (12:15→15:00)
[2017-10-08] MEDS ORDERED: ONDANSETRON 4 MG/2 ML VIAL IVP ONE (12:25)
[2017-10-08 12:27] LABS: PLATELET COUNT, AUTOMATED 765 K/uL (150-450)
[2017-10-08] MEDS ORDERED: diphenhydrAMINE 50 MG/ML VIAL IVP ONE (12:30)
[2017-10-08] MEDS ORDERED: methylPREDNIS SUCC 125 MG/2ML IVP ONE (12:30)
[2017-10-08] MEDS ORDERED: IOPAMIDOL 76% 75 ML INFUS BTL 0 ML ONE (12:35)
[2017-10-08] MEDS ORDERED: EMS NS 0.9%(*) 1000 ML BAG 1,000 ML IV ONE (12:35)
--- NOTE | 2017-10-08 13:44 | RADIOLOGY IMAGING REPORT ---
FACILITY: [facility] PATIENT NAME: Pamela Correa : 1940 MR: [id number] V: [id number] EXAM DATE: ORDERING PHYSICIAN: ANNMARIE FAITH TECHNOLOGIST: Location: [facility] - [place] Patient: Pamela Correa : 1940 Visit/Account:[id number] Date of Sevice: 10/08/2017 EXAMINATION: CT abdomen and pelvis without IV contrast CT lumbar spine without IV contrast (reformatted) HISTORY: Abdominal pain/back pain. COMPARISON: CT abdomen and pelvis from 12/18/2015 and 09/24/2017 TECHNIQUE: Contiguous axial images were obtained from the top of the lung bases through the ischial tuberosities without IV contrast. Sagittal and coronal reformatted images are also submitted. Source data was reformatted at thin slice collimation and small field of view over the lumbar spine. Stored on PACS are reformatted axial, sagittal and coronal lumbar spine series. One of the following dose optimization techniques was utilized in the performance of this exam: Autom ated exposure control; adjustment of the mA and/or kV according to the patient's size; or use of an i terative reconstruction technique. Specific details can be referenced in the facility's radiology C T exam operational policy. FINDINGS: CT ABDOMEN AND PELVIS: Liver/biliary: The liver is homogeneous. There are several calcified gallstones layering in the gall bladder. There is no biliary ductal dilatation. Pancreas: Negative. Spleen: Negative. Adrenal glands: Negative. Kidneys: There is a right ureteral stent which is new. Nonobstructing punctate left renal stone is u nchanged. There is no hydronephrosis. Simple right renal cyst. Pelvic structures: Small amount of air in the urinary bladder. Bowel: Moderate sized hiatal hernia is unchanged. Partial left hemicolectomy with left lower quadran t ostomy. There are no dilated loops of bowel. Peritoneum/retroperitoneum/mesenteries: Negative. Vessels: Extensive atherosclerotic calcifications. Musculoskeletal/body wall: Bony structures are osteopenic. Lymph nodes: Negative. Lower chest: Pleural parenchymal scarring at the lung bases is unchanged. CT LUMBAR SPINE: Alignment: Grade 1 anterolisthesis at L4-5 measuring 8 mm is unchanged. There is rightward curvature of the lumbar spine with the apex at L2-3. Vertebral bodies: Bony structures are osteopenic. There is a chronic superior endplate fracture of L 3 and 3 chronic compression fracture of T11, with 50% anterior height loss. No acute fracture is vis ualized. Posterior elements: Multilevel facet hypertrophy. Disc Spaces: Moderate to severe disc space narrowing and endplate sclerosis at L1-2 and L4-5 is uncha nged. Soft tissues: Negative. IMPRESSION: 1. No explanation for acute abdominal pain. 2. Cholelithiasis. 3. Right ureteral stent is new, and is well-positioned. 4. Punctate nonobstructing left renal stones, unchanged. 5. Trace air in the urinary bladder is decreased. 6. Left lower quadrant ostomy, without evidence of bowel obstruction. 7. Moderate hiatal hernia, unchanged. 8. Osteopenia without evidence of acute fracture of the lumbar spine. 9. Chronic superior endplate fracture of L3 and chronic compression fracture of T11, unchanged. 10. Multilevel degenerative disc disease and facet arthropathy, and grade 1 degenerative anterolisth esis at L4-5, unchanged. Report Dictated By: Nayeli Rao MD at 10/08/2017 1:26 PM Report E-Signed By: Nayeli Rao MD at 10/08/2017 1:40 PM WSN:[email or web address]
--- NOTE | 2017-10-08 13:44 | RADIOLOGY IMAGING REPORT ---
FACILITY: [facility] PATIENT NAME: Pamela Correa : 1940 MR: [id number] V: [id number] EXAM DATE: ORDERING PHYSICIAN: ANNMARIE FAITH TECHNOLOGIST: Location: [facility] - [place] Patient: Pamela Correa : 1940 Visit/Account:[id number] Date of Sevice: 10/08/2017 EXAMINATION: CT abdomen and pelvis without IV contrast CT lumbar spine without IV contrast (reformatted) HISTORY: Abdominal pain/back pain. COMPARISON: CT abdomen and pelvis from 12/18/2015 and 09/24/2017 TECHNIQUE: Contiguous axial images were obtained from the top of the lung bases through the ischial tuberosities without IV contrast. Sagittal and coronal reformatted images are also submitted. Source data was reformatted at thin slice collimation and small field of view over the lumbar spine. Stored on PACS are reformatted axial, sagittal and coronal lumbar spine series. One of the following dose optimization techniques was utilized in the performance of this exam: Autom ated exposure control; adjustment of the mA and/or kV according to the patient's size; or use of an i terative reconstruction technique. Specific details can be referenced in the facility's radiology C T exam operational policy. FINDINGS: CT ABDOMEN AND PELVIS: Liver/biliary: The liver is homogeneous. There are several calcified gallstones layering in the gall bladder. There is no biliary ductal dilatation. Pancreas: Negative. Spleen: Negative. Adrenal glands: Negative. Kidneys: There is a right ureteral stent which is new. Nonobstructing punctate left renal stone is u nchanged. There is no hydronephrosis. Simple right renal cyst. Pelvic structures: Small amount of air in the urinary bladder. Bowel: Moderate sized hiatal hernia is unchanged. Partial left hemicolectomy with left lower quadran t ostomy. There are no dilated loops of bowel. Peritoneum/retroperitoneum/mesenteries: Negative. Vessels: Extensive atherosclerotic calcifications. Musculoskeletal/body wall: Bony structures are osteopenic. Lymph nodes: Negative. Lower chest: Pleural parenchymal scarring at the lung bases is unchanged. CT LUMBAR SPINE: Alignment: Grade 1 anterolisthesis at L4-5 measuring 8 mm is unchanged. There is rightward curvature of the lumbar spine with the apex at L2-3. Vertebral bodies: Bony structures are osteopenic. There is a chronic superior endplate fracture of L 3 and 3 chronic compression fracture of T11, with 50% anterior height loss. No acute fracture is vis ualized. Posterior elements: Multilevel facet hypertrophy. Disc Spaces: Moderate to severe disc space narrowing and endplate sclerosis at L1-2 and L4-5 is uncha nged. Soft tissues: Negative. IMPRESSION: 1. No explanation for acute abdominal pain. 2. Cholelithiasis. 3. Right ureteral stent is new, and is well-positioned. 4. Punctate nonobstructing left renal stones, unchanged. 5. Trace air in the urinary bladder is decreased. 6. Left lower quadrant ostomy, without evidence of bowel obstruction. 7. Moderate hiatal hernia, unchanged. 8. Osteopenia without evidence of acute fracture of the lumbar spine. 9. Chronic superior endplate fracture of L3 and chronic compression fracture of T11, unchanged. 10. Multilevel degenerative disc disease and facet arthropathy, and grade 1 degenerative anterolisth esis at L4-5, unchanged. Report Dictated By: Nayeli Rao MD at 10/08/2017 1:26 PM Report E-Signed By: Nayeli Rao MD at 10/08/2017 1:40 PM WSN:[email or web address]
[2017-10-08] MEDS ORDERED: HYDROCORTISONE 100 MG/2 ML IVP ONE (14:30)
[2017-10-08] MEDS ORDERED: cefTRIAXone 2 GM VIAL IVP ONE (14:30)
[2017-10-08 16:32] VITALS: BP 135/65
[2017-10-08] MEDS ORDERED: FLUSH 10 ML SYR IVP PRN (17:30)
[2017-10-08] MEDS ORDERED: ONDANSETRON 4 MG/2 ML VIAL IVP PRN (17:30)
[2017-10-08] MEDS ORDERED: ACETAMINOPHEN 325 MG TAB PO PRN (17:30)
[2017-10-08] MEDS ORDERED: INFLUENZA VIRUS VAC 0.5 ML SYR IM ONLY ONE (17:30)
[2017-10-08] MEDS ORDERED: ALBUTEROL 8 GM INHALER INH PRN (17:50)
[2017-10-08] MEDS ORDERED: OXYBUTYNIN CHL XL 5 MG TABCR PO PRN (17:50)
--- NOTE | 2017-10-08 17:55 | General Surgery Consultation ---
History of Present Illness Requesting Physician Dr. Thomas Licea, Hospitalist Service Reason for Consult Abdominal pain Chief Complaint Abdominal pain, N/V History of Present Illness 77yo female is brought in to the [facility] ER with abdominal pain and N/V. Her symptoms started in the last day. She has an extensive abdominal history including a sigmoid colectomy 4 years for diverticulitis. She had an anastomotic leak and had to go back and have a colostomy. When colostomy takedown was performed she leaked again and also noted was ischemic small bowel and so a small bowel resection and new colostomy was performed. 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 All of these surgeries occurred between 2013 and 2015. She hasn't had any abdominal surgery since then. She has been admitted once with an SBO that was managed nonoperatively. She reports occasional constipation with hard stools coming from her stoma but she usually takes prune juice with resolution of this. She didn't take prune juice this morning even though she noted decreased stoma output due to N/V. She has been seeing Dr. Morales with Urology for recurring UTIs and he gave her PO charcoal which ultimately ended up in her urine c/w an enterovesical fistula. She is feeling better at the moment. History Problems: (1) Insomnia Status: Chronic (2) COPD (chronic obstructive pulmonary disease) Status: Chronic (3) HTN (hypertension) Status: Chronic (4) RLS (restless legs syndrome) Status: Chronic (5) Colostomy in place Status: Chronic Home Meds Reported Medications Sulfamethoxazole/Trimet 800-160 Mg Tab (BACTRIM DS TABLET) 1 Each Tablet, 1 TAB PO Q12H, #14 TAB 09/28/17 Phenazopyridine Hcl (PHENAZOPYRIDINE HCL) 200 Mg Tablet, 200 MG PO TID PRN for BURNING WITH URINATION, #30 TAB 09/28/17 Oxybutynin Chloride (DITROPAN XL) 10 Mg Tab.er.24, 10 MG PO QDAY PRN for URGENCY, #10 TAB 09/28/17 Lisinopril (LISINOPRIL) 20 Mg Tablet, 20 MG PO QDAY, TAB 09/25/17 Pantoprazole Sodium (PANTOPRAZOLE SODIUM) 40 Mg Tablet.dr, 40 MG PO QDAY, #90 TAB.SR 02/19/17 Melatonin (MELATONIN) 3 Mg Tablet, 2 TAB PO QHS 02/17/17 Oxycodone Hcl/Acetaminophen (OXYCODONE-ACETAMINOPHEN 5-325) Unknown Strength Tablet, PO PRN, TAB 02/17/17 Albuterol Sulfate 0.083% (ALBUTEROL SULFATE 0.083%) 2.5 Mg/3 Ml Vial.neb, 2.5 MG INH QID, INH 02/17/17 Albuterol Sulfate 90 Mcg/Act (PROAIR HFA 90 MCG/ACT) 8.5 Gm Hfa.aer.ad, 2-4 PUFF IH PRN, INHALER 02/17/17 Fluticasone/Salmeterol (ADVAIR 250-50 DISKUS) 1 Each Disk.w.dev, 1 PUFF IH BID 02/17/17 Oxygen (OXYGEN) Inha, 3 L INH cont., L 04/24/15 Ipratropium [place] (IPRATROPIUM BROMIDE) 0.2 Mg/1 Ml Solution, 1 ML IH QID 08/07/14 Ca Carbonate/Vitamin D3/Vit K (VIACTIV SOFT CHEW TABLET) 1 Each Tab.chew, 1 EACH PO DAILY, TAB.CHEW 12/14/13 Tramadol Hcl (TRAMADOL HCL) 50 Mg Tablet, 50-100 MG PO Q6H PRN for PAIN 12/14/13 Cholecalciferol (Vitamin D3) (VITAMIN D) 2,000 Unit Capsule, 2000 UNIT PO DAILY, CAPSULE 12/14/13 Ropinirole Hcl (ROPINIROLE HCL) 0.5 Mg Tablet, 0.5 MG PO BID PRN for SPASMS take 1/2 tab 2-3 times a day as needed for leg cramps 11/21/13 Aspirin (ASPIRIN) 81 Mg Tab.chew, 81 MG PO QDAY, TAB.CHEW TAKE 1 TABLET BY MOUTH EVERY DAY 11/21/13 Ascorbic Acid (VITAMIN C) 250 Mg Tablet, 250 MG PO QDAY 11/21/13 [place]-3 Fatty Acids (FISH OIL) 300 Mg Capsule, 300 MG PO QDAY, CAPSULE 11/21/13 Multivitamin (MULTIPLE VITAMINS) 1 Each Tablet, 1 EACH PO QDAY 11/21/13 Allergies: Coded Allergies: banana (Verified Allergy, Severe, ITCHING EYES, EARS, THROAT AND BODY, 10/08/17) honey (Verified Allergy, Severe, ITCHING ALL OVER, 10/08/17) iodine (Verified Allergy, Severe, HIVES AND ITCHING ALL OVER, DIZZINES, 10/08/17) morphine (Verified Allergy, Severe, BACK ACHES, 10/08/17) Lkmsire-Mgj-Onj Reductase Inhibitor (Verified Allergy, Intermediate, MUSCLE CRAMPING, 10/08/17) milk (Verified Allergy, Intermediate, BLOATING REALLY BAD, 10/08/17) latex (Verified Allergy, Mild, BECAUSE SHE ITCHES IN HER EARS WITH BANANAS, 10/08/17) strawberry (Verified Allergy, Mild, ITCHING, 10/08/17) hydromorphone (Verified Adverse Reaction, Unknown, 10/08/17) causes generalized itching Uncoded Allergies: IODINE SALT (Allergy, Severe, ITCHING ALL OVER, 08/07/14) Family History: FH: dementia MOTHER, Onset:60 years & older ( AT AGE 92 ) FH: diabetic complications CHILD FH: liver cancer BROTHER OR SISTER, Onset:60 years & older FH: stroke CHILD, Onset:51 CHILD Review of Systems All Systems Reviewed/Normal: Yes, Except as Noted Gastrointestinal: Nausea, Vomiting, Abdominal Pain Exam Vital Signs Vital Signs Date Time Temp Pulse Resp B/P (MAP) Pulse Ox O2 Delivery O2 Flow Rate FiO2 10/08/17 16:32 98.8 99 16 135/65 (88) 92 Nasal Cannula 3.0 General Appearance: Alert, Awake, No Acute Distress, Afebrile Neuro: No Gross deficits Eyes: PERRLA GI: Other (Soft, nondistended, RLQ TTP. Stoma bag is not translucent to I couldn't see the stoma but there is gas in the bag and a small hard fecal ball.) Extremities: Warm, Perfused Medical Decision Making Data Points Result Diagram: 10/08/17 1206 10/08/17 1206 Assessment and Plan Problems: (1) Enterovesical fistula Status: Chronic Assessment & Plan: 10/08/17: I would not recommend any sort of abdominal s urgery during this admission. I recommend treating her for constipation, prune juice historically works for her, and treating her UTI. I will continue to see her as an outpatient after discharge from the hospital and will continue working this up. I would like to get a CT enterography to try and localize the fistula but this can be completed as an outpatient. We would then have to discuss surg ical exploration or non-operative management. She is obviously not interested in surgery if it can be avoided and surgery would be difficult in this patient with multiple abdominal surgeries and her last operative note specifically comments on how difficult the adhesiolysis was due to the amount and density of adhesions. Furthermore, any future contemplated surgery would put her at risk for small bowel injury and possibly more fistulae. I will discuss this further with her as an outpatient after discharge. (2) UTI (urinary tract infection) Status: Acute (3) Sepsis Status: Acute Central Venous Access Medical Necessity for Access: IV Access, Medication Administration Condition Stable. Time Spent: < 30 min Venous Thromboembolism VTE Risk Physician Assess for VTE Risk: Yes Patient's VTE Risk: Low VTE Diagnostic Test 2 Days Prior to Admit: No Antithrombotics Is Pt On Any Antithrombotics?: No Problem Qualifiers (1) UTI (urinary tract infection): Urinary tract infection type: acute cystitis Hematuria presence: with hematuria Qualified Codes: N30.01 - Acute cystitis with hematuria (2) Sepsis: Sepsis type: sepsis due to unspecified organism Qualified Codes: A41.9 - Sepsis, unspecified organism SHANNON REECE MD Oct 08, 2017 17:55
[2017-10-08] MEDS ORDERED: ALBUTEROL 2.5 MG/3 ML NEB NEB SCH (18:00)
[2017-10-08] MEDS ORDERED: NS(*) 0.9% 250 ML BAG 250 ML ONE (18:35)
[2017-10-08] MEDS: IMIPENEM/CILASTA(*) 500MG VIAL 300 MG in NS(*) 0.9% 100 ML BAG 100 ML IVPB SCH (18:39)
[2017-10-08] MEDS: PHENAZOPYRIDINE 200 MG TAB PO PRN (18:39)
[2017-10-08] MEDS: SALMETEROL/FLUTIC 250/50 1 INH INH SCH (18:40)
[2017-10-08] MEDS: ALBUTEROL/IPRATROPIUM 3 ML NEB NEB SCH (18:40)
[2017-10-08] MEDS: fentaNYL CITR 100 MCG/2 ML AMP IVP PRN (18:44)
--- NOTE | 2017-10-08 19:18 | History & Physical ---
History of Present Illness Chief Complaint Back pain, burning with urination. History of Present Illness 77F with complicated PMHx of multiple abdominal surgeries and complications presented with n/v, burning on urination, decreased ostomy output, back pain. Reports back pain started 2 weeks ago, noted decrease in ostomy output over last 3 days, has had worsening of back pain and burning with urination. Per pt not eating well as was to have imaging study the day of admission. 8 days prior to admission had cystoscopy with Dr Morales and determined to have fistula between gut and bladder. In ER UA concerning for infection, LA 4.3, Cr elevated. 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 Status: Acute (3) Hypokalemia Status: Acute (4) UTI (urinary tract infection) Status: Acute (5) Enterovesical fistula Status: Chronic Home Meds Reported Medications Sulfamethoxazole/Trimet 800-160 Mg Tab (BACTRIM DS TABLET) 1 Each Tablet, 1 TAB PO Q12H, #14 TAB 09/28/17 Phenazopyridine Hcl (PHENAZOPYRIDINE HCL) 200 Mg Tablet, 200 MG PO TID PRN for BURNING WITH URINATION, #30 TAB 09/28/17 Oxybutynin Chloride (DITROPAN XL) 10 Mg Tab.er.24, 10 MG PO QDAY PRN for URGENCY, #10 TAB 09/28/17 Lisinopril (LISINOPRIL) 20 Mg Tablet, 20 MG PO QDAY, TAB 09/25/17 Pantoprazole Sodium (PANTOPRAZOLE SODIUM) 40 Mg Tablet.dr, 40 MG PO QDAY, #90 TAB.SR 02/19/17 Melatonin (MELATONIN) 3 Mg Tablet, 2 TAB PO QHS 02/17/17 Oxycodone Hcl/Acetaminophen (OXYCODONE-ACETAMINOPHEN 5-325) Unknown Strength Tablet, PO PRN, TAB 02/17/17 Albuterol Sulfate 0.083% (ALBUTEROL SULFATE 0.083%) 2.5 Mg/3 Ml Vial.neb, 2.5 MG INH QID, INH 02/17/17 Albuterol Sulfate 90 Mcg/Act (PROAIR HFA 90 MCG/ACT) 8.5 Gm Hfa.aer.ad, 2-4 PUFF IH PRN, INHALER 02/17/17 Fluticasone/Salmeterol (ADVAIR 250-50 DISKUS) 1 Each Disk.w.dev, 1 PUFF IH BID 02/17/17 Oxygen (OXYGEN) Inha, 3 L INH cont., L 04/24/15 Ipratropium [place] (IPRATROPIUM BROMIDE) 0.2 Mg/1 Ml Solution, 1 ML IH QID 08/07/14 Ca Carbonate/Vitamin D3/Vit K (VIACTIV SOFT CHEW TABLET) 1 Each Tab.chew, 1 EACH PO DAILY, TAB.CHEW 12/14/13 Tramadol Hcl (TRAMADOL HCL) 50 Mg Tablet, 50-100 MG PO Q6H PRN for PAIN 12/14/13 Cholecalciferol (Vitamin D3) (VITAMIN D) 2,000 Unit Capsule, 2000 UNIT PO DAILY, CAPSULE 12/14/13 Ropinirole Hcl (ROPINIROLE HCL) 0.5 Mg Tablet, 0.5 MG PO BID PRN for SPASMS take 1/2 tab 2-3 times a day as needed for leg cramps 11/21/13 Aspirin (ASPIRIN) 81 Mg Tab.chew, 81 MG PO QDAY, TAB.CHEW TAKE 1 TABLET BY MOUTH EVERY DAY 11/21/13 Ascorbic Acid (VITAMIN C) 250 Mg Tablet, 250 MG PO QDAY 11/21/13 [place]-3 Fatty Acids (FISH OIL) 300 Mg Capsule, 300 MG PO QDAY, CAPSULE 11/21/13 Multivitamin (MULTIPLE VITAMINS) 1 Each Tablet, 1 EACH PO QDAY 11/21/13 Allergies: Coded Allergies: banana (Verified Allergy, Severe, ITCHING EYES, EARS, THROAT AND BODY, 10/08/17) honey (Verified Allergy, Severe, ITCHING ALL OVER, 10/08/17) iodine (Verified Allergy, Severe, HIVES AND ITCHING ALL OVER, DIZZINES, 10/08/17) morphine (Verified Allergy, Severe, BACK ACHES, 10/08/17) Wcumfvy-Bml-Svf Reductase Inhibitor (Verified Allergy, Intermediate, MUSCLE CRAMPING, 10/08/17) milk (Verified Allergy, Intermediate, BLOATING REALLY BAD, 10/08/17) latex (Verified Allergy, Mild, BECAUSE SHE ITCHES IN HER EARS WITH BANANAS, 10/08/17) strawberry (Verified Allergy, Mild, ITCHING, 10/08/17) hydromorphone (Verified Adverse Reaction, Unknown, 10/08/17) causes generalized itching Uncoded Allergies: IODINE SALT (Allergy, Severe, ITCHING ALL OVER, 08/07/14) Patient History: FH: dementia MOTHER, Onset:60 years & older ( AT AGE 92 ) FH: diabetic complications CHILD FH: liver cancer BROTHER OR SISTER, Onset:60 years & older FH: stroke CHILD, Onset:51 CHILD Hx Smoking: Yes (SMOKED FOR 50 YEARS, 1 PPD quit 2009) Smoking Status: Former Smoker, Heavy Tobacco Smoker Exposure to Second Hand Smoke?: No Caffeine Intake: Coffee Caffeine/Cups Per Day: very occ Hx Alcohol Use: Yes ("not for a long time.") Hx Substance Use Disorder: No Social Drug Use: Never Review of Systems Constitutional: Chills; No Fever Neurological: Weakness Eyes: No Vision Change, No Loss of Vision ENT: No Hearing Loss Respiratory: No Shortness of Breath, No Cough Gastrointestinal: Nausea, Vomiting, Abdominal Pain Musculoskeletal: Pain Exam Vital Signs Vital Signs Date Time Temp Pulse Resp B/P (MAP) Pulse Ox O2 Delivery O2 Flow Rate FiO2 10/08/17 16:32 98.8 99 16 135/65 (88) 92 Nasal Cannula 3.0 General Appearance: Alert, Awake, Afebrile Neuro: No Gross deficits Eyes: PERRLA ENT: Other (Dry mucosa) Neck: No Masses Cardiovascular: Normal Rhythm & Peripheral Pulses Respiratory: Clear to Auscultation (3L NC) Chest: No Tenderness GI: Other (SOft, non-distended, + BS x4, colostomy bag, suprapubic tenderness) Lymph: Cervical Nodes Benign Musculoskeletal: Other (+ CVA tenderness) Extremities: Soft and Non Tender, Warm, Pulses, Perfused, Edema (very mild) Integumentary: Skin Intact without Lesion / Mass Psych: Alert & Oriented X3 Medical Decision Making Data Points Result Diagram: 10/08/17 1206 10/08/17 1206 Assessment and Plan Problems: (1) Sepsis Status: Acute Assessment & Plan: 2/2 complicated UTI/pyelonephritis. Received IV NS bolus in ER, started on broad spectrum Abx to cover gut parker. (2) Pyelonephritis Assessment & Plan: R CVA tenderness, with nausea and vomiting in patient with UTI. Empiric Primaxin renally dosed, UCx and BCx pending. (3) GALINA (acute kidney injury) Assessment & Plan: 2/2 relative hypotension and pyelonephritis, baseline Cr 0.8-1.0. IV fluid bolus in ER, continue NS IV @ 100cc/hr. Making urine, monitor urine output. (4) Hyperkalemia Assessment & Plan: Mild. Likely 2/2 decreased renal clearance, avoid potassium. (5) Enterovesical fistula Status: Chronic Assessment & Plan: No intervention at this time. Dr Sandy will follow up outpt, Unclear what intervention would be tolerated/helpful given extensive abdominal surgery Hx. (6) COPD (chronic obstructive pulmonary disease) Status: Chronic Assessment & Plan: On Advair, ipratropium, albuterol chronically. Continued. Venous Thromboembolism Antithrombotics Is Pt On Any Antithrombotics?: No Exam Sepsis Risk: Severe Sepsis Risk ADRIAN STALEY DO Oct 08, 2017 19:18
[2017-10-08 19:28] VITALS: BP 127/100
[2017-10-08] MEDS: MELATONIN 3 MG TAB PO SCH (20:38)
[2017-10-08] MEDS ORDERED: IPRATROPIUM BROMIDE IH SCH (21:00)
[2017-10-08 22:44] VITALS: BP 116/55
[2017-10-09] MEDS: MELATONIN 3 MG TAB PO SCH ×2 (00:15→21:08)
[2017-10-09] MEDS: IMIPENEM/CILASTA(*) 500MG VIAL 300 MG in NS(*) 0.9% 100 ML BAG 100 ML IVPB SCH ×4 (00:15→21:07)
[2017-10-09 03:13] VITALS: BP 115/49
[2017-10-09 05:43] LABS: PLATELET COUNT, AUTOMATED 435 K/uL (150-450)
[2017-10-09] MEDS: SALMETEROL/FLUTIC 250/50 1 INH INH SCH ×2 (06:13→17:06)
[2017-10-09] MEDS: ALBUTEROL/IPRATROPIUM 3 ML NEB NEB SCH ×4 (06:13→17:06)
[2017-10-09 08:03] VITALS: BP 142/83
[2017-10-09] MEDS: PHENAZOPYRIDINE 200 MG TAB PO PRN ×2 (08:08→15:32)
--- NOTE | 2017-10-09 08:20 | General Surgery Progress Note ---
Subjective Progress Notes Subjective Main complaint is abdominal cramping, mainly in right side of abdomen and back pain with associated nausea. Stoma output is good after prune juice. Pain doesn't seem to be associated with stoma output, i.e. it didn't improve after prune juice and output improved overnight. Physical Exam Vital Signs Date Time Temp Pulse Resp B/P (MAP) Pulse Ox O2 Delivery O2 Flow Rate FiO2 10/09/17 08:03 98.4 90 14 142/83 (102) 90 Nasal Cannula 3.0 Intake and Output 10/09/17 07:00 Intake Total 3616 ml Output Total 1625 ml Balance 1991 ml Intake Oral 300 ml IV Total 3316 ml Output Urine Total 1375 ml Stool Total 250 ml General Appearance: Alert, Awake, No Acute Distress, Afebrile GI: Other (Soft, right sided abdominal TTP, no palpable mass or bulge.) Extremities: Warm, Perfused Result Diagram: 10/09/17 0521 10/09/17 05 Assessment and Plan Problems: (1) Enterovesical fistula Status: Chronic Assessment & Plan: 10/08/17: I would not recommend any sort of abdominal s urgery during this admission. I recommend treating her for constipation, prune juice historically works for her, and treating her UTI. I will continue to see her as an outpatient after discharge from the hospital and will continue working this up. I would like to get a CT enterography to try and localize the fistula but this can be completed as an outpatient. We would then have to discuss surg ical exploration or non-operative management. She is obviously not interested in surgery if it can be avoided and surgery would be difficult in this patient with multiple abdominal surgeries and her last operative note specifically comments on how difficult the adhesiolysis was due to the amount and density of adhesions. Furthermore, any future contemplated surgery would put her at risk for small bowel injury and possibly more fistulae. I will discuss this further with her as an outpatient after discharge. 10/09/17: Doing better from lab and vitals standpoint. No fevers or tachycardia. WBC, lactate, creatinine all down this morning. I wonder if back and abdominal pain related to ureteral stent. Would continue treating for UTI and discuss stent with Urology. (2) UTI (urinary tract infection) Status: Acute (3) Sepsis Status: Acute Condition Stable. Time Spent: < 30 min Exam Sepsis Risk: Severe Sepsis Risk Problem Qualifiers (1) UTI (urinary tract infection): Urinary tract infection type: acute cystitis Hematuria presence: with hematuria Qualified Codes: N30.01 - Acute cystitis with hematuria SHANNON REECE MD Oct 09, 2017 08:20
[2017-10-09] MEDS ORDERED: cefTRIAXone(*) 1 GM VIAL 1 GM in NS(*) 0.9% 100 ML ADDVANT BAG 100 ML IVPB SCH (09:00)
[2017-10-09 10:06] LABS: PLATELET COUNT, AUTOMATED 481 K/uL (150-450)
[2017-10-09 10:13] VITALS: Ht 147.3 cm; Wt 49.9 kg
[2017-10-09] MEDS ORDERED: VANCOMYCIN HCL(*) 0.750 GM ADD 0.75 GM in NS(*) 0.9% 250 ML ADDVAN BAG 250 ML IVPB ONE (10:15)
[2017-10-09] MEDS: PANTOPRAZOLE SOD 40 MG TABEC PO SCH (10:16)
[2017-10-09] MEDS: ASPIRIN 81 MG CHEW PO SCH (10:16)
[2017-10-09] MEDS: ENOXAPARIN 40 MG/0.4ML SYR SC SCH (10:16)
[2017-10-09] MEDS: fentaNYL CITR 100 MCG/2 ML AMP IVP PRN ×3 (10:24→21:15)
[2017-10-09 11:32] VITALS: BP 123/54
--- NOTE | 2017-10-09 14:57 | Hospitalist Progress Note ---
Subjective Progress Notes Subjective The patient continues to have low back pain. She states she has had this since August and it was present before her stent was placed. It hurts worse with movement. Physical Exam Vital Signs Date Time Temp Pulse Resp B/P (MAP) Pulse Ox O2 Delivery O2 Flow Rate FiO2 10/09/17 14:05 93 Nasal Cannula 3.0 10/09/17 14:05 95 18 10/09/17 11:32 98.8 123/54 (77) Intake and Output 10/09/17 07:00 Intake Total 3616 ml Output Total 1625 ml Balance 1991 ml Intake Oral 300 ml IV Total 3316 ml Output Urine Total 1375 ml Stool Total 250 ml General Appearance: Alert, Awake, No Acute Distress, Afebrile Neuro: No Gross deficits Eyes: PERRLA Cardiovascular: Regular Rate and Rhythm Respiratory: Clear to Auscultation GI: Other (Soft, nondistended, tender to palpation over the right abdomen > left abdomen. Ostomy bag in place L abdomen.) Extremities: Warm, Perfused Psych: Appropriate Mood & Affect Result Diagram: 10/09/17 1000 10/09/17 0521 Assessment and Plan Problems: (1) Sepsis Status: Acute Assessment & Plan: Secondary to complicated UTI/pyelonephritis. Received IV NS bolus in ER, started on broad spectrum Abx to cover gut parker due to possible enterovesical fistula. Urine culture growing a gram negative aurelio and a gram positive cocci. On Primaxin. Will add vanco, a one time dose of 750mg based on weight and Cr Cl of 31. Will do a random Vanco level with am labs. (2) Pyelonephritis Assessment & Plan: R CVA tenderness, with nausea and vomiting in patient with UTI. Empiric Primaxin renally dosed, Urine culture with gram negative aurelio and gram positive cocci as noted above. (3) GALINA (acute kidney injury) Assessment & Plan: Due to relative hypotension and pyelonephritis, baseline Cr 0.8-1.0. IV fluid bolus in ER, continue NS IV @ 100cc/hr. Making urine, monitor urine output. Creatinine improved to 1.2 today. (4) Hyperkalemia Assessment & Plan: Mild. Likely due to decreased renal clearance, avoid potassium. Normalized after fluids. (5) Enterovesical fistula Status: Chronic Assessment & Plan: No intervention at this time. Dr Du will follow up outpt, Unclear what intervention would be tolerated/helpful given extensive abdominal surgery Hx. (6) COPD (chronic obstructive pulmonary disease) Status: Chronic Assessment & Plan: On Advair, ipratropium, albuterol chronically. Continued. (7) Low back pain Status: Chronic Assessment & Plan: Since August. The patient's CT of abdomen shows old compression fxs, DJD and severe disc space narrowing. Her pain started rather acutely in August but without history of trauma. Will try a Lidoderm patch. Time Spent on Plan of Care: < 30 min Exam Sepsis Risk: Severe Sepsis Risk MALLORY BLOCK MD Oct 09, 2017 14:57
[2017-10-09 17:57] VITALS: BP 127/61
[2017-10-09 21:18] VITALS: BP 143/62
[2017-10-09 23:09] VITALS: BP 136/41
[2017-10-10] MEDS: IMIPENEM/CILASTA(*) 500MG VIAL 300 MG in NS(*) 0.9% 100 ML BAG 100 ML IVPB SCH ×4 (02:02→21:01)
[2017-10-10 02:47] VITALS: BP 131/55
[2017-10-10 05:29] LABS: PLATELET COUNT, AUTOMATED 473 K/uL (150-450)
[2017-10-10] MEDS: ALBUTEROL/IPRATROPIUM 3 ML NEB NEB SCH ×4 (05:33→17:57)
[2017-10-10] MEDS: SALMETEROL/FLUTIC 250/50 1 INH INH SCH ×2 (05:33→17:56)
[2017-10-10] MEDS: PHENAZOPYRIDINE 200 MG TAB PO PRN ×2 (07:47→14:10)
[2017-10-10 07:56] VITALS: BP 143/62
[2017-10-10] MEDS: ASPIRIN 81 MG CHEW PO SCH (09:00)
[2017-10-10] MEDS ORDERED: VANCOMYCIN HCL(*) 0.750 GM ADD 0.75 GM in NS(*) 0.9% 250 ML ADDVAN BAG 250 ML IVPB SCH (09:00)
[2017-10-10] MEDS: PANTOPRAZOLE SOD 40 MG TABEC PO SCH (09:44)
[2017-10-10] MEDS: ENOXAPARIN 40 MG/0.4ML SYR SC SCH (09:45)
--- NOTE | 2017-10-10 10:55 | Hospitalist Progress Note ---
Subjective Progress Notes Subjective This patient was admitted for a suspected urinary infection. She had no acute events overnight. Patient Complains of: Cardiovascular: No: Chest Pain Respiratory: No: Shortness of Breath Physical Exam Vital Signs Date Time Temp Pulse Resp B/P (MAP) Pulse Ox O2 Delivery O2 Flow Rate FiO2 10/10/17 09:12 97 14 10/10/17 09:12 92 Nasal Cannula 3.0 10/10/17 07:56 98.6 143/62 (89) Intake and Output 10/10/17 07:00 Intake Total 571 ml Output Total 2150 ml Balance -1579 ml Intake Oral 0 ml IV Total 571 ml Output Urine Total 2000 ml Stool Total 150 ml Cardiovascular: Regular Rate and Rhythm Respiratory: Clear to Auscultation Result Diagram: 10/10/17 0500 10/10/17 0500 Item Value Date Time Urine Culture - Preliminary Resulted 10/08/17 1252 Cath Urine Gram Negative Wily Assessment and Plan Problems: (1) Sepsis Status: Acute Assessment & Plan: She never did have a fever, but did have an elevated WBC and lactic acidosis at admission. Her lactate and WBC quickly improved with fluid administration. (2) Pyelonephritis Assessment & Plan: She presented with right flank pain, but her CT scan was negative for findings consistent with pyelonephritis. Her urine was a contaminated sample. The culture is growing gram positive and gram negative bacteria. She was started on empiric treatment with Primaxin and vancomycin. She has been on multiple courses of antibiotics prior to admission. (3) GALINA (acute kidney injury) Assessment & Plan: Resolved with IV fluids. (4) Hyperkalemia Assessment & Plan: Resolved with IV fluids. (5) Enterovesical fistula Status: Chronic Assessment & Plan: She is followed by both Dr. Sandy and Dr. Morales. Dr. Morales has recommended that her catheter remain in place. She is scheduled to have the stent removed in one week. (6) COPD (chronic obstructive pulmonary disease) Status: Chronic Assessment & Plan: On Advair, ipratropium, albuterol chronically. Continued. (7) Low back pain Status: Chronic Assessment & Plan: Since August. The patient's CT of abdomen shows old compression fxs, DJD and severe disc space narrowing. Her pain started rather acutely in August but without history of trauma. Will try a Lidoderm patch. Exam Sepsis Risk: No Definite Risk SHANNON MILLER DO Oct 10, 2017 10:55
--- NOTE | 2017-10-10 12:14 | Medical Nutrition Therapy ---
Nutrition Anthropometrics Height (Inches): 58.00 Height (Calculated Centimeters: 147.591441 Weight (Pounds): 110 Weight (Calculated Kilograms): 49.895 [place] Nutrition Score: Probably Inadequate [place] Nutrition Risk Score: 14 Dietary Referral Nutrition Risk Factors: Nutrition Risk Comment: Physical Findings Physical Appearance: BMI: 23 Skin Appearance Skin Appearance: Edema Edema Location Modifier: Edema Location: Type of Edema: Degree of Edema: Gastrointestinal Symptoms GI Symtoms: Change in Bowel Pattern Tube Present: Bowel Sounds: Recent Bowel Pattern: Stool Characteristics: Nutritional Diagnosis Nutritional Risk Acuity 2: Sepsis Past Medical History: Hx of HTN, hyperlipidemia, asthma, pneumonia, COPD, hiatal hernia, UTI, arthritis, osteoporosis, ankle fx, anemia, and alcohol use. Nutritional Acuity: 2-Moderate Nutrition Diagnosis: Altered GI Function Nutrition Etiology: Physiological Causes Nutrition Problem/Etiology/Sym: Altered GI function related to physiological causes as evidenced by abdominal pain and fistula. Energy Requirement: 1138 ([id number] (mifflin SJ x 1.3-1.5)) Protein Requirement: 58 (49-59 g (1-1.2g/kg)) Fluid Requirement: 1470 (5678-6069 (30-35ml/kg)) Diet Type: Diet as Tolerated JUAN/REG Nutrition Intervention: Cont diet as ordered, Encourage intake Diet Comment To RSA: ALLERGY- iodine salt, bananas, honey, milk, and strawberries. Nutrition Monitoring & Eval RD Patient Assessment Time: [address] Assessment Type: RD Screen Patient Nutrition Acuity: 2-Moderate Follow Up Date: Oct 10, 2017 Nutritional Comment: 10/09. Admitted for abdominal pain, nausea, and vomitting. Pt is being treated for spesis, UTI, and chronic fistula. Pt is on JUAN, consuming 75-100% of small or regular meals. Pt is allergic to iodine salt, bananas, honey, milk, and strawberries. Noteable labs include: low Hgb 8.1, Hct 25.3, albumin 2.7, and total protein 5.6. Elevated labs include: BUN 20 and Creatinine 1.2. Pt is 58in, 110lbs, and has a normal BMI of 23. Will monitor pt intake and labs. MR 10/10 Pt consuming average of 76% of meals in facility. Notable labs include low H/H, tot pro 5.9 and alb 2.9. Will cont to encourage intake.-CIRO JIMENEZ Oct 10, 2017 12:14
[2017-10-10 12:34] VITALS: BP 147/58
[2017-10-10 16:47] VITALS: BP 131/70
[2017-10-10 21:02] VITALS: BP 141/57
[2017-10-10] MEDS ORDERED: NS(*) 0.9% 250 ML BAG 250 ML ONE (21:10)
[2017-10-10] MEDS: MELATONIN 3 MG TAB PO SCH (22:53)
[2017-10-11] MEDS: IMIPENEM/CILASTA(*) 500MG VIAL 300 MG in NS(*) 0.9% 100 ML BAG 100 ML IVPB SCH ×3 (02:37→13:34)
[2017-10-11] MEDS: ALBUTEROL/IPRATROPIUM 3 ML NEB NEB SCH ×4 (05:35→17:43)
[2017-10-11] MEDS: SALMETEROL/FLUTIC 250/50 1 INH INH SCH ×2 (05:35→17:42)
[2017-10-11 05:46] LABS: PLATELET COUNT, AUTOMATED 469 K/uL (150-450)
[2017-10-11 07:56] VITALS: BP 136/69
[2017-10-11] MEDS: PANTOPRAZOLE SOD 40 MG TABEC PO SCH (08:21)
[2017-10-11] MEDS: ENOXAPARIN 40 MG/0.4ML SYR SC SCH (08:22)
[2017-10-11] MEDS: ASPIRIN 81 MG CHEW PO SCH (08:22)
[2017-10-11] MEDS ORDERED: VANCOMYCIN HCL(*) 0.750 GM ADD 0.75 GM in NS(*) 0.9% 250 ML ADDVAN BAG 250 ML IVPB SCH (09:30)
--- NOTE | 2017-10-11 13:21 | Hospitalist Progress Note ---
Subjective Progress Notes Subjective She reports continued abdominal pain, but decreased in severity. Physical Exam Vital Signs Date Time Temp Pulse Resp B/P (MAP) Pulse Ox O2 Delivery O2 Flow Rate FiO2 10/11/17 09:20 93 16 10/11/17 09:15 94 Nasal Cannula 3.0 10/11/17 07:56 99.2 136/69 (91) Intake and Output 10/11/17 07:00 Intake Total 565 ml Output Total 900 ml Balance -335 ml Intake Oral 0 ml IV Total 565 ml Output Urine Total 900 ml # Voids 1 General Appearance: Alert, Awake, No Acute Distress GI: Other (Non-distended. Soft. Tender in diffusely with palpation, but worse in the RLQ. No peritoneal signs.) Result Diagram: 10/11/1752510/11/17525 Assessment and Plan Problems: (1) Sepsis Status: Acute Assessment & Plan: She never did have a fever, but did have an elevated WBC and lactic acidosis at admission. Her lactate and WBC quickly improved with fluid administration. Currently, afebrile and BP stable. Pulse is labile. WBC increased today. Will follow. Repeat CRP tomorrow. (2) Pyelonephritis Assessment & Plan: She presented with right flank pain. The culture is growing gram positive and gram negative bacteria. She has been on multiple courses of antibiotics prior to admission and has a possible enterovesical fistula. She was started on empiric treatment with Primaxin and vancomycin. See above. (3) GALINA (acute kidney injury) Assessment & Plan: Resolved with IV fluids. (4) Hyperkalemia Assessment & Plan: Resolved with IV fluids. (5) Enterovesical fistula Status: Chronic Assessment & Plan: She is followed by both Dr. Sandy and Dr. Morales. Dr. Morales has recommended that her catheter remain in place. She had a ureteral stent placed on the right on 09/28 because of the proximity of the possible fistula to orifice of the ureter. She is scheduled to have the stent removed in one week. (6) COPD (chronic obstructive pulmonary disease) Status: Chronic Assessment & Plan: On Advair, ipratropium, albuterol chronically. Continued. (7) Low back pain Status: Chronic Assessment & Plan: Since August. The patient's CT of abdomen shows old compression fxs, DJD and severe disc space narrowing. Her pain started rather acutely in August but without history of trauma. Will try a Lidoderm patch. Exam Sepsis Risk: No Definite Risk VAHID UP MD Oct 11, 2017 13:21
[2017-10-11 13:46] VITALS: BP 151/75
[2017-10-11] MEDS ORDERED: LEVOFLOXACIN/D5W 750 MG/150 ML 150 ML IVPB SCH (15:00)
[2017-10-11] MEDS: PHENAZOPYRIDINE 200 MG TAB PO PRN (17:27)
[2017-10-11 19:14] VITALS: BP 156/68
[2017-10-11 23:18] VITALS: BP 161/77
[2017-10-11] MEDS: MELATONIN 3 MG TAB PO SCH (23:49)
[2017-10-12 05:18] VITALS: BP 159/63
[2017-10-12] MEDS: SALMETEROL/FLUTIC 250/50 1 INH INH SCH (05:34)
[2017-10-12] MEDS: ALBUTEROL/IPRATROPIUM 3 ML NEB NEB SCH ×2 (05:34→09:02)
[2017-10-12 05:42] LABS: PLATELET COUNT, AUTOMATED 447 K/uL (150-450)
[2017-10-12 07:38] VITALS: BP 144/65
--- NOTE | 2017-10-12 08:41 | General Surgery Progress Note ---
Subjective Progress Notes Subjective No issues over the weekend. Her lower abdominal pain seems to be improving but not resolved. She is tolerating a diet. No fevers. Physical Exam Vital Signs Date Time Temp Pulse Resp B/P (MAP) Pulse Ox O2 Delivery O2 Flow Rate FiO2 10/12/17 07:48 92 Nasal Cannula 3.0 10/12/17 07:38 98.2 93 16 144/65 (91) Intake and Output 10/12/17 07:00 Intake Total 1330 ml Output Total 2475 ml Balance -1145 ml Intake Oral 870 ml IV Total 460 ml Output Urine Total 2175 ml Stool Total 300 ml General Appearance: Alert, Awake, No Acute Distress, Afebrile GI: Other (soft, suprapubic and right-sided tenderness to palpation.) Result Diagram: 10/12/1751910/12/17519 Assessment and Plan Problems: (1) Enterovesical fistula Status: Chronic Assessment & Plan: 10/08/17: I would not recommend any sort of abdominal surgery during this admission. I recommend treating her for constipation, prune juice historically works for her, and treating her UTI. I will continue to see her as an outpatient after discharge from the hospital and will continue working this up. I would like to get a CT enterography to try and localize the fistula but this can be completed as an outpatient. We would then have to discuss surgical exploration or non-operative management. She is obviously not interes rivera in surgery if it can be avoided and surgery would be difficult in this patient with multiple abdominal surgeries and her last operative note specifically comments on how difficult the adhesiolysis was due to the amount and density of adhesions. Furthermore, any future contemplated surgery would put her at risk for small bowel injury and possibly more fistulae. I will discuss this further with her as an outpatient after discharge. 10/09/17: Doing better from lab and vitals standpoint. No fevers or tachycardia. WBC, lactate, creatinine all down this morning. I wonder if back and abdominal pain related to ureteral stent. Would continue treating for UTI and discuss stent with Urology. 10/12/17: Seems to be slowly improving. I am told by the patient that Dr. Morales expects to remove her right ureteral stent later this week. Urine cultures have returned with enteric organisms supporting the idea that this is due to an enterovesical fistula. The current antibiotic coverage is good based on the growing organisms and sensitivities. I discussed with the patient once again she is not a great surgical candidate just in terms of how many abdominal surgeries that she has had and the description of her abdomen and Dr. Pritchett's last operative notes. The fistula may be opening at the base of the bladder near the ureteral ostia. Would recommend starting with conservative management. This could include bowel rest with TPN as well as antibiotics. Would also need to consider a small bowel obstruction distal to the fistula given its delayed presentation a couple of years after her last surgery. It is possible that a stricture has developed and as a result of this, she developed the fistula. Getting a study that would identify this will be challenging due to her reported sensitivity to iodine-based contrast but barium doesn't contain iodine and would be safe in her. We could use thin barium for a CT enterography. This could potentially show the location in the small bowel of the fistula as well as any obstructions distal to the fistula. A small bowel follow-through would be another study that may not identify the fistula as well as a CT foot could identify an obstruction downstream from the fistula. The studies could be performed while the patient is in the hospital or after she is discharged. (2) UTI (urinary tract infection) Status: Acute (3) Sepsis Status: Acute Condition Stable Time Spent: < 30 min Exam Sepsis Risk: No Definite Risk Problem Qualifiers (1) UTI (urinary tract infection): Urinary tract infection type: acute cystitis Hematuria presence: with hematuria Qualified Codes: N30.01 - Acute cystitis with hematuria (2) Sepsis: Sepsis type: sepsis due to unspecified organism Qualified Codes: A41.9 - Sepsis, unspecified organism SHANNON REECE MD Oct 12, 2017 08:41
[2017-10-12] MEDS: PANTOPRAZOLE SOD 40 MG TABEC PO SCH (09:10)
[2017-10-12] MEDS: ASPIRIN 81 MG CHEW PO SCH (09:10)
[2017-10-12] MEDS: ENOXAPARIN 40 MG/0.4ML SYR SC SCH (09:10)
[2017-10-12] MEDS ORDERED: ALBUTEROL/IPRATROPIUM 3 ML NEB NEB PRN (09:15)
--- NOTE | 2017-10-12 10:30 | CONSULTATION ---
EVENT DATE: October 12, 2017 REASON FOR CONSULTATION Urinary tract infection. HISTORY OF PRESENT ILLNESS The patient is a 77-year-old white female with a long GI history from diverticulitis with abscesses who has had several surgeries and currently has a colotomy. She was originally evaluated in the urologic clinic after being referred for urinary tract infections and was found to have an enterovesical fistula on September 28, 2017 by cystoscopy which was confirmed by p.o. charcoal test. The fistula was located on the right, lateral posterior wall approximately 1 cm above the right ureteral orifice. Given its location and possible close association of ureter, a ureteral stent was placed at the time of cystoscopy on September 28, 2017. The patient was placed on p.o. Bactrim prophylactically, however, she presented to the emergency room on the with abdominal pain and failure to thrive with dehydration. At that time, a urine culture was obtained which showed enterococcus faecalis and E-Coli. Blood cultures were obtained which are currently not growing any organisms. Laboratory data on admission revealed a WBC of 12.7 with 79.2% left shift. Her chemistry panel was significant for a creatinine of 2.2 and her lactate was 4.3. She was admitted to the hospital and given broad spectrum antibiotics with her lactate rapidly improving to 1.2 the evening of admission. A Gagnon catheter was placed and she was continued on broad spectrum antibiotics and has continued to improve. Her current electrolytes are normal with a creatinine of 0.8 which is back to her baseline. She has no elevated WBC and no left shift at her current time. She continues to complain of bilateral back and abdominal pain which is intermittent in nature. The Gagnon catheter is draining clear yellow urine. She has also been followed by Dr. Andrés Sandy of general surgery and they have discussed operative repair of this fistula, but the patient is somewhat reluctant to undergo repair given her history of significant bowel adhesions and abscesses which would increase her complication rate of another fistula or bowel problem in the perioperative period. PAST MEDICAL HISTORY 1. Neuropathy with restless leg syndrome. 2. Hypercholesterolemia. 3. Hypertension. 4. COPD. 5. Hiatal hernia. 6. Diverticulitis with abscesses, small bowel obstruction and enterocutaneous fistula now with enterovesical fistula. 7. Degenerative joint disease. PAST SURGICAL HISTORY 1. Ear surgery. 2. Bilateral cataracts. 3. Appendectomy at age 17. 4. Multiple GI surgeries with current colostomy. SOCIAL HISTORY The patient is and lives in [place], [place] and has a remote history of smoking. CURRENT MEDICATIONS 1. Melatonin. 2. Protonix. 3. Requip. 4. Advair. 5. Albuterol. 6. Aspirin. 7. Multivitamin. 8. Flovent. 9. Tramadol. 10. Percocet. ALLERGIES STATIN HYDROCODONE IODINE REVIEW OF SYSTEMS The patient denies productive cough, chest pain, chronic headaches or bleeding disorder. PHYSICAL EXAMINATION GENERAL: The patient is a well developed, well nourished, think white female in no acute distress. HEENT: Normocephalic, atraumatic. CHEST: Clear to auscultation bilaterally. CARDIOVASCULAR: Regular rate and rhythm. ABDOMINAL: Soft, nontender. Stoma is pink and viable. She has no peritoneal signs on exam of her abdomen. GENITOURINARY: Deferred. Her Gagnon is draining clear, yellow urine. EXTREMITIES: Without clubbing, cyanosis, or edema. NEUROLOGIC: Nonfocal. IMPRESSION This is a 77-year-old white female who is currently in the hospital for presumed urinary tract infection with possible urosepsis. She had a CT scan performed on admission which showed good stent placement with no hydronephrosis. She had no perinephric stranding on either kidney and both her blood cultures have been negative so far. It is unclear whether she had a true episode of pyelonephritis or a continued episode of cystitis with decreased p.o. intake resulting in significant dehydration. She currently has a Gagnon catheter in place and has been on broad spectrum antibiotics and feeling significantly improved. RECOMMENDATIONS Would keep her Gagnon catheter in place until we are able to remove her ureteral stent. After discussing the case with the patient and Dr. Sandy, the plan will be to remove her stent and place her on low dose prophylactic antibiotics in an attempt to avoid having to attempt a repair of this fistula. Hopefully, we will be able to do this stent removal on the of this month. Until we perform this procedure, we would like her on broad spectrum antibiotics and Gagnon catheter drainage. GAYLA
[2017-10-12] MEDS ORDERED: LISINOPRIL 20 MG TAB PO SCH (10:45)
[2017-10-12] MEDS: PHENAZOPYRIDINE 200 MG TAB PO PRN (10:49)
--- NOTE | 2017-10-12 12:11 | Medical Nutrition Therapy ---
Nutrition Anthropometrics Height (Inches): 58.00 Height (Calculated Centimeters: 147.753415 Weight (Pounds): 110 Weight (Calculated Kilograms): 49.895 [place] Nutrition Score: Probably Inadequate [place] Nutrition Risk Score: 14 Dietary Referral Nutrition Risk Factors: Nutrition Risk Comment: Physical Findings Physical Appearance: BMI: 23 Skin Appearance Skin Appearance: Edema Edema Location Modifier: Edema Location: Type of Edema: Degree of Edema: Gastrointestinal Symptoms GI Symtoms: Change in Bowel Pattern Tube Present: Bowel Sounds: Recent Bowel Pattern: Stool Characteristics: Nutritional Diagnosis Nutritional Risk Acuity 2: Sepsis Past Medical History: Hx of HTN, hyperlipidemia, asthma, pneumonia, COPD, hiatal hernia, UTI, arthritis, osteoporosis, ankle fx, anemia, and alcohol use. Nutritional Acuity: 2-Moderate Nutrition Diagnosis: Altered GI Function Nutrition Etiology: Physiological Causes Nutrition Problem/Etiology/Sym: Altered GI function related to physiological causes as evidenced by abdominal pain and fistula. Energy Requirement: 1138 ([id number] (mifflin SJ x 1.3-1.5)) Protein Requirement: 58 (49-59 g (1-1.2g/kg)) Fluid Requirement: 1470 (1707-6923 (30-35ml/kg)) Diet Type: Diet as Tolerated JUAN/REG Nutrition Intervention: Cont diet as ordered, Encourage intake Diet Comment To RSA: ALLERGY- iodine salt, bananas, honey, milk, and strawberries. Nutrition Monitoring & Eval RD Patient Assessment Time: [address] Assessment Type: RD Re-Assessment Patient Nutrition Acuity: 2-Moderate Follow Up Date: Oct 13, 2017 Nutritional Comment: 10/09. Admitted for abdominal pain, nausea, and vomitting. Pt is being treated for spesis, UTI, and chronic fistula. Pt is on JUAN, consuming 75-100% of small or regular meals. Pt is allergic to iodine salt, bananas, honey, milk, and strawberries. Noteable labs include: low Hgb 8.1, Hct 25.3, albumin 2.7, and total protein 5.6. Elevated labs include: BUN 20 and Creatinine 1.2. Pt is 58in, 110lbs, and has a normal BMI of 23. Will monitor pt intake and labs. MR 10/10 Pt consuming average of 76% of meals in facility. Notable labs include low H/H, tot pro 5.9 and alb 2.9. Will cont to encourage intake.-EK 10/12. Improving after abdominal surgery. Pt cont on JUAN, consuming 25-75% of regular meals. MD noted possible diet switch to TPN for bowel rest post abdominal surgery. Cont to be treated for fistula, UTI, and sepsis. WBC, WNL, 7.7. Noteable labs include: low RBC 3.15, Hgb 8.8, Hct 27.4, albumin 2.9, and total protein 5.8. Will cont to encourage intake and monitor labs. OLMAN CONCEPCION Oct 12, 2017 09:49
--- NOTE | 2017-10-12 16:39 | Hospitalist Depart ---
Discharge Summary Reason for Hosp/Final Diag: (1) Sepsis Status: Acute Hospital Course & Plan: She never did have a fever, but did have an elevated WBC and lactic acidosis at admission. Her lactate and WBC quickly improved with fluid administration. Currently, afebrile and BP stable. Resolved. (2) Pyelonephritis Hospital Course & Plan: She presented with right flank pain. The culture is E Coli and E faecalis. She has been on multiple courses of antibiotics prior to admission and has a possible enterovesical fistula. She was started on empiric treatment with Primaxin and vancomycin. Changed to IV Levaquin, then PO Levaquin. Anticipate therapy for total 14d (through 09.21.17), stent scheduled to be removed 10.15.2017. (3) GALINA (acute kidney injury) Hospital Course & Plan: Resolved with IV fluids. (4) Hyperkalemia Hospital Course & Plan: Resolved with IV fluids. (5) Enterovesical fistula Status: Chronic Hospital Course & Plan: She is followed by both Dr. Sandy and Dr. Morales. Dr. Morales has recommended that her catheter remain in place. She had a ureteral stent placed on the right on 09/28 because of the proximity of the possible fistula to orifice of the ureter. She is scheduled to have the stent removed in one week. (6) COPD (chronic obstructive pulmonary disease) Status: Chronic Hospital Course & Plan: On Advair, ipratropium, albuterol chronically. Continued. (7) Low back pain Status: Chronic Hospital Course & Plan: Since August. The patient's CT of abdomen shows old compression fxs, DJD and severe disc space narrowing. Her pain started rather acutely in August but without history of trauma. Will try a Lidoderm patch. Departure Weight (Pounds): 110 Weight (Ounces): 7.0 Result Diagram: 10/12/1751910/12/17519 Condition: Improved Discharge: H ECF Discharge Instructions Home Meds Reported Medications Sulfamethoxazole/Trimet 800-160 Mg Tab (BACTRIM DS TABLET) 1 Each Tablet, 1 TAB PO Q12H, #14 TAB 09/28/17 Phenazopyridine Hcl (PHENAZOPYRIDINE HCL) 200 Mg Tablet, 200 MG PO TID PRN for BURNING WITH URINATION, #30 TAB 09/28/17 Lisinopril (LISINOPRIL) 20 Mg Tablet, 20 MG PO QDAY, TAB 09/25/17 Pantoprazole Sodium (PANTOPRAZOLE SODIUM) 40 Mg Tablet.dr, 40 MG PO QDAY, #90 TAB.SR 02/19/17 Melatonin (MELATONIN) 3 Mg Tablet, 2 TAB PO QHS 02/17/17 Oxycodone Hcl/Acetaminophen (OXYCODONE-ACETAMINOPHEN 5-325) Unknown Strength Tablet, PO PRN, TAB 02/17/17 Albuterol Sulfate 0.083% (ALBUTEROL SULFATE 0.083%) 2.5 Mg/3 Ml Vial.neb, 2.5 MG INH QID, INH 02/17/17 Albuterol Sulfate 90 Mcg/Act (PROAIR HFA 90 MCG/ACT) 8.5 Gm Hfa.aer.ad, 2-4 PUFF IH PRN, INHALER 02/17/17 Fluticasone/Salmeterol (ADVAIR 250-50 DISKUS) 1 Each Disk.w.dev, 1 PUFF IH BID 02/17/17 Oxygen (OXYGEN) Inha, 3 L INH cont., L 04/24/15 Ipratropium [place] (IPRATROPIUM BROMIDE) 0.2 Mg/1 Ml Solution, 1 ML IH QID 08/07/14 Ca Carbonate/Vitamin D3/Vit K (VIACTIV SOFT CHEW TABLET) 1 Each Tab.chew, 1 EACH PO DAILY, TAB.CHEW 12/14/13 Tramadol Hcl (TRAMADOL HCL) 50 Mg Tablet, 50-100 MG PO Q6H PRN for PAIN 12/14/13 Cholecalciferol (Vitamin D3) (VITAMIN D) 2,000 Unit Capsule, 2000 UNIT PO DAILY, CAPSULE 12/14/13 Ropinirole Hcl (ROPINIROLE HCL) 0.5 Mg Tablet, 0.5 MG PO BID PRN for SPASMS take 1/2 tab 2-3 times a day as needed for leg cramps 11/21/13 Aspirin (ASPIRIN) 81 Mg Tab.chew, 81 MG PO QDAY, TAB.CHEW TAKE 1 TABLET BY MOUTH EVERY DAY 11/21/13 Ascorbic Acid (VITAMIN C) 250 Mg Tablet, 250 MG PO QDAY 11/21/13 Venus-3 Fatty Acids (FISH OIL) 300 Mg Capsule, 300 MG PO QDAY, CAPSULE 11/21/13 Multivitamin (MULTIPLE VITAMINS) 1 Each Tablet, 1 EACH PO QDAY 11/21/13 Discontinued Reported Medications Oxybutynin Chloride (DITROPAN XL) 10 Mg Tab.er.24, 10 MG PO QDAY PRN for URGENCY, #10 TAB 09/28/17 Diet: Regular Activity: As Tolerated Special Instructions: Venous Thromboembolism Antithrombotics Is Pt On Any Antithrombotics?: No Problem Qualifiers (1) Sepsis: Sepsis type: sepsis due to unspecified organism Qualified Codes: A41.9 - Sepsis, unspecified organism ADRIAN STALEY DO Oct 12, 2017 16:38
[2017-10-13] MEDS ORDERED: OXYC1TAB78 PO (09:49)
[2017-10-13] MEDS ORDERED: LEVOFLOXACIN 750 MG TAB PO SCH (10:00)
== END 2017-10-12 13:00 | DRG 872 ==
LOC: ER 12:08 → MED 14:45
PROVIDERS: ADMIT Internal Medicine; ATTEND Internal Medicine
DX: A41.9 Sepsis, unspecified organism (principal); N30.01 Acute cystitis with hematuria; N32.1 Vesicointestinal fistula; N12 Tubulo-interstitial nephritis, not specified as acute or chronic; N17.9 Acute kidney failure, unspecified; I10 Essential (primary) hypertension; E87.5 Hyperkalemia; G47.00 Insomnia, unspecified; J44.9 Chronic obstructive pulmonary disease, unspecified; G89.29 Other chronic pain; G25.81 Restless legs syndrome; G62.9 Polyneuropathy, unspecified; E78.00 Pure hypercholesterolemia, unspecified; B96.20 Unspecified Escherichia coli [E. coli] as the cause of diseases classified elsewhere; B96.89 Other specified bacterial agents as the cause of diseases classified elsewhere; Z88.5 Allergy status to narcotic agent; Z91.040 Latex allergy status; Z88.8 Allergy status to other drugs, medicaments and biological substances; Z91.011 Allergy to milk products; Z91.018 Allergy to other foods; Z87.891 Personal history of nicotine dependence
CPT/HCPCS: 36415; 72131; 74176; 80202; 81001; 82040; 82150; 82247; 82310; 82374; 82435; 82565; 82947; 83605; 83690; 83735; 84075; 84132; 84155; 84295; 84450; 84460; 84520; 85025; 86140; 87040; 87077; 87088; 87186; 94640; 96361; 96374; 96375; 96376; 97161; 97166; 99285; A4353; C1758; J0696; J0743; J1650; J1720; J1956; J2405; J3010; J3370; J3535; J7030; J7050; Q9967

== ENCOUNTER → 2017-10-08 | Outpatient (CLI) | payer MEDICARE ==
[2015-12-19 08:30] VITALS: BMI 23.8
[~2017-10-08] MED LIST changes: +LEVO750T44 PO; +OXYC1TAB78 PO
== END ==
LOC: AMB 11:23
PROVIDERS: ATTEND Nurse Practitioner
DX: R10.84 Generalized abdominal pain (principal); M54.9 Dorsalgia, unspecified; M79.605 Pain in left leg; M79.604 Pain in right leg; I95.9 Hypotension, unspecified; E86.0 Dehydration
CPT/HCPCS: A0425; A0427

== ENCOUNTER 2017-10-12 13:15 | Inpatient (IN) | payer MEDICARE ==
[2015-12-19 08:30] VITALS: Ht 147.3 cm; Wt 46.7 kg
[~2017-10-12] VITALS: Ht 147.3 cm; Wt 46.7 kg
[2017-10-12 13:39] VITALS: BP 113/68
[2017-10-12] MEDS ORDERED: ALBUTEROL 8 GM INHALER INH PRN (13:48)
[2017-10-12] MEDS ORDERED: OXYBUTYNIN CHL XL 5 MG TABCR PO PRN (13:48)
[2017-10-12] MEDS ORDERED: ACETAMINOPHEN 325 MG TAB PO PRN (13:48)
--- NOTE | 2017-10-12 14:42 | Consultant Pharmacy Review ---
Lead Software Development Engineer Review Medication Review Do All Mecications have a Diag: Yes Beers Criteria Medication 2014 Proton Pump Inhibitors: Pantoprazole (Increases the risk of fall; please monitor the patient ) Pneumococcal Vaccine HX Pneumo Vac (Amdovrf84): Yes (65) HX Pneumo Vac (Pneumovax): Yes (75) Comments Regarding the Review Urine culture grew Enterococcus faecalis sensitive to Levaquin. Patient started on Levaquin 750 mg Q48HR due to low renal function. Levaquin started 10/11; continue per urology. ONEL HARRIS V Oct 12, 2017 14:42
[2017-10-12 16:14] VITALS: BP 124/73
--- NOTE | 2017-10-12 16:45 | ECF H&P BLANK ---
ECF H&P UPDATE History of Present Illness Chief Complaint Back pain, burning with urination. History of Present Illness 77F with complicated PMHx of multiple abdominal surgeries and complications presented with n/v, burning on urination, decreased ostomy output, back pain. Reports back pain started 2 weeks ago, noted decrease in ostomy output over last 3 days, has had worsening of back pain and burning with urination. Per pt not eating well as was to have imaging study the day of admission. 8 days prior to admission had cystoscopy with Dr Morales and determined to have fistula between gut and bladder. In ER UA concerning for infection, LA 4.3, Cr elevated. 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 Status: Acute (3) Hypokalemia Status: Acute (4) UTI (urinary tract infection) Status: Acute (5) Enterovesical fistula Status: Chronic Home Meds Reported Medications Sulfamethoxazole/Trimet 800-160 Mg Tab (BACTRIM DS TABLET) 1 Each Tablet, 1 TAB PO Q12H, #14 TAB 09/28/17 Phenazopyridine Hcl (PHENAZOPYRIDINE HCL) 200 Mg Tablet, 200 MG PO TID PRN for BURNING WITH URINATION, #30 TAB 09/28/17 Oxybutynin Chloride (DITROPAN XL) 10 Mg Tab.er.24, 10 MG PO QDAY PRN for URGENCY, #10 TAB 09/28/17 Lisinopril (LISINOPRIL) 20 Mg Tablet, 20 MG PO QDAY, TAB 09/25/17 Pantoprazole Sodium (PANTOPRAZOLE SODIUM) 40 Mg Tablet.dr, 40 MG PO QDAY, #90 TAB.SR 02/19/17 Melatonin (MELATONIN) 3 Mg Tablet, 2 TAB PO QHS 02/17/17 Oxycodone Hcl/Acetaminophen (OXYCODONE-ACETAMINOPHEN 5-325) Unknown Strength Tablet, PO PRN, TAB 02/17/17 Albuterol Sulfate 0.083% (ALBUTEROL SULFATE 0.083%) 2.5 Mg/3 Ml Vial.neb, 2.5 MG INH QID, INH 02/17/17 Albuterol Sulfate 90 Mcg/Act (PROAIR HFA 90 MCG/ACT) 8.5 Gm Hfa.aer.ad, 2-4 PUFF IH PRN, INHALER 02/17/17 Fluticasone/Salmeterol (ADVAIR 250-50 DISKUS) 1 Each Disk.w.dev, 1 PUFF IH BID 02/17/17 Oxygen (OXYGEN) Inha, 3 L INH cont., L 04/24/15 Ipratropium [place] (IPRATROPIUM BROMIDE) 0.2 Mg/1 Ml Solution, 1 ML IH QID 08/07/14 Ca Carbonate/Vitamin D3/Vit K (VIACTIV SOFT CHEW TABLET) 1 Each Tab.chew, 1 EACH PO DAILY, TAB.CHEW 12/14/13 Tramadol Hcl (TRAMADOL HCL) 50 Mg Tablet, 50-100 MG PO Q6H PRN for PAIN 12/14/13 Cholecalciferol (Vitamin D3) (VITAMIN D) 2,000 Unit Capsule, 2000 UNIT PO DAILY, CAPSULE 12/14/13 Ropinirole Hcl (ROPINIROLE HCL) 0.5 Mg Tablet, 0.5 MG PO BID PRN for SPASMS take 1/2 tab 2-3 times a day as needed for leg cramps 11/21/13 Aspirin (ASPIRIN) 81 Mg Tab.chew, 81 MG PO QDAY, TAB.CHEW TAKE 1 TABLET BY MOUTH EVERY DAY 11/21/13 Ascorbic Acid (VITAMIN C) 250 Mg Tablet, 250 MG PO QDAY 11/21/13 [place]re-3 Fatty Acids (FISH OIL) 300 Mg Capsule, 300 MG PO QDAY, CAPSULE 11/21/13 Multivitamin (MULTIPLE VITAMINS) 1 Each Tablet, 1 EACH PO QDAY 11/21/13 Allergies: Coded Allergies: banana (Verified Allergy, Severe, ITCHING EYES, EARS, THROAT AND BODY, 10/08/17) honey (Verified Allergy, Severe, ITCHING ALL OVER, 10/08/17) iodine (Verified Allergy, Severe, HIVES AND ITCHING ALL OVER, DIZZINES, 10/08/17) morphine (Verified Allergy, Severe, BACK ACHES, 10/08/17) Unolbrs-Xer-Wtg Reductase Inhibitor (Verified Allergy, Intermediate, MUSCLE CRAMPING, 10/08/17) milk (Verified Allergy, Intermediate, BLOATING REALLY BAD, 10/08/17) latex (Verified Allergy, Mild, BECAUSE SHE ITCHES IN HER EARS WITH BANAN , 10/08/17) strawberry (Verified Allergy, Mild, ITCHING, 10/08/17) hydromorphone (Verified Adverse Reaction, Unknown, 10/08/17) causes generalized itching Uncoded Allergies: IODINE SALT (Allergy, Severe, ITCHING ALL OVER, 08/07/14) Patient History: FH: dementia MOTHER, Onset:60 years & older ( AT AGE 92 ) FH: diabetic complications CHILD FH: liver cancer BROTHER OR SISTER, Onset:60 years & older FH: stroke CHILD, Onset:51 CHILD Hx Smoking: Yes (SMOKED FOR 50 YEARS, 1 PPD quit 2009) Smoking Status: Former Smoker, Heavy Tobacco Smoker Exposure to Second Hand Smoke?: No Caffeine Intake: Coffee Caffeine/Cups Per Day: very occ Hx Alcohol Use: Yes ("not for a long time.") Hx Substance Use Disorder: No Social Drug Use: Never Review of Systems Constitutional: Chills; No Fever Neurological: Weakness Eyes: No Vision Change, No Loss of Vision ENT: No Hearing Loss Respiratory: No Shortness of Breath, No Cough Gastrointestinal: Nausea, Vomiting, Abdominal Pain Musculoskeletal: Pain Exam Vital Signs Vital Signs Date Time Temp Pulse Resp B/P (MAP) Pulse Ox O2 Delivery O2 Flow Rate FiO2 10/08/17 16:32 98.8 99 16 135/65 (88) 92 Nasal Cannula 3.0 General Appearance: Alert, Awake, Afebrile Neuro: No Gross deficits Eyes: PERRLA ENT: Other (Dry mucosa) Neck: No Masses Cardiovascular: Normal Rhythm & Peripheral Pulses Respiratory: Clear to Auscultation (3L NC) Chest: No Tenderness GI: Other (SOft, non-distended, + BS x4, colostomy bag, suprapubic tenderness) Lymph: Cervical Nodes Benign Musculoskeletal: Other (+ CVA tenderness) Extremities: Soft and Non Tender, Warm, Pulses, Perfused, Edema (very mild) Integumentary: Skin Intact without Lesion / Mass Psych: Alert & Oriented X3 Medical Decision Making Data Points Result Diagram: 10/08/17 1206 10/08/17 1206 Assessment and Plan Problems: (1) Sepsis Status: Acute Assessment & Plan: 2/2 complicated UTI/pyelonephritis. Received IV NS bolus in ER, started on broad spectrum Abx to cover gut parker. (2) Pyelonephritis Assessment & Plan: R CVA tenderness, with nausea and vomiting in patient with UTI. Empiric Primaxin renally dosed, UCx and BCx pending. (3) GALINA (acute kidney injury) Assessment & Plan: 2/2 relative hypotension and pyelonephritis, baseline Cr 0.8-1.0. IV fluid bolus in ER, continue NS IV @ 100cc/hr. Making urine, monitor urine output. (4) Hyperkalemia Assessment & Plan: Mild. Likely 2/2 decreased renal clearance, avoid potassium. (5) Enterovesical fistula Status: Chronic Assessment & Plan: No intervention at this time. Dr Sandy will follow up outpt, Unclear what intervention would be tolerated/helpful given extensive abdominal surgery Hx. (6) COPD (chronic obstructive pulmonary disease) Status: Chronic Assessment & Plan: On Advair, ipratropium, albuterol chronically. Continued. Venous Thromboembolism Antithrombotics Is Pt On Any Antithrombotics?: No Exam Sepsis Risk: Severe Sepsis Risk The above acute care issues are resolving and/or stable. Patient requires nursing home and/or skilled rehabilitation and is ready for admission to Extended Care. Any change in condition is described below. Sepsis - resolved Pyelonephritis - growing E Coli and E faecalis, on Levaquin last day therapy 10.22.2017. Stent to be removed 10.15.2017. Hyperkalemia - resolved GALINA - resolved Central Line Progress Note Medical Necessity for Central: IV Access, Medication Administration ADRIAN STALEY DO Oct 12, 2017 16:45
[2017-10-12] MEDS: SALMETEROL/FLUTIC 250/50 1 INH INH SCH (16:51)
[2017-10-12] MEDS: ALBUTEROL/IPRATROPIUM 3 ML NEB NEB PRN (16:52)
[2017-10-12] MEDS: PHENAZOPYRIDINE 200 MG TAB PO PRN (23:16)
[2017-10-12] MEDS: MELATONIN 3 MG TAB PO SCH (23:16)
[2017-10-13] MEDS: SALMETEROL/FLUTIC 250/50 1 INH INH SCH ×2 (05:59→17:08)
--- NOTE | 2017-10-13 06:21 | PT ECF NOTE ---
Type of Note: Initial Note Primary Medical Diagnosis: Sepsis, see [employer] and physician H&P Physical Therapy Evaluation Date: 10/12/17 SUBJECTIVE: Prior Hospitalization: [facility] acute 10/08-10/12/17 Prior Level of Function: Pt reports prior to recent decline, she was able to ambulate with a Rollator walker house-hold distances including ascending/descending a ramp into their home. Prior Living Status: Single level house, Spouse (recent medical problems and is unable to physically assist Pt) Community Services: [facility] for cleaning services once a week Home Accessibility: Ramp Equipment Owned: Rollator Medical Complications/Past Medical History: extensive, please see [employer] Psychosocial Support: supportive Pain Scale (0-10): Pt reports improving back pain and R hip "tenderness" OBJECTIVE: Bed Mobility: Min A Assistive device: Bed rail, Head of bed elevated Transfers: Minimum assistance/Moderate assistance for frequent posterior loss of balance Assistive Device: Front wheeled walker Gait: Minimum assistance x 15' for posterior loss of balance. Increased SOB noted with activity. Assistive device: Front wheeled walker ASSESSMENT: Pt presents with decreased independence with functional mobility compared to prior level of function. Pt will benefit from skilled PT for strengthening, functional mobility training, and endurance to meet demands of functional mobility in order to return to prior level of function. Problem List/Current Limitations: Pain Decreased activity pablo Decreased strength Decreased coordination Decreased balance Generalized weakness Shortness of breath Short Term Goals: 1. Mod I bed mobility. 2. Mod I transfers. 3. Mod I x 50' with RW. 4. Ascend/descend ramp SBA with RW. [employer] Goals: return home Patient Goals: return home Rehabilitation Prognosis: Fair Barriers for Discharge: SOB PLAN: The patient will benefit from skilled physical therapy services 5 times per week for 2 weeks including: Therapeutic Exercise Therapeutic Activities Transfer Training Gait Training Stair Training Manual Therapy ADL's Safety Training Neuromuscular Re-educ. Pt/Caregiver Training Bed Mobility Thank you for this referral. If you have any questions, concerns, or comments about this report or plan, please contact me at . Kelley Robins, PT, DPT, GCS MTDD
[2017-10-13 08:00] VITALS: BP 136/67
[2017-10-13] MEDS: ASCORBIC ACID 500 MG TAB PO SCH (08:44)
[2017-10-13] MEDS: LISINOPRIL 20 MG TAB PO SCH (08:44)
[2017-10-13] MEDS: ASPIRIN 81 MG CHEW PO SCH (08:44)
[2017-10-13] MEDS: PANTOPRAZOLE SOD 40 MG TABEC PO SCH (08:44)
[2017-10-13] MEDS ORDERED: OXYC1TAB78 PO (09:49)
[2017-10-13] MEDS ORDERED: LEVOFLOXACIN 750 MG TAB PO SCH (10:00)
[2017-10-13 13:50] VITALS: BP 125/73
--- NOTE | 2017-10-13 13:59 | Medical Nutrition Therapy ---
Nutrition Anthropometrics Height (Inches): 58.00 Height (Calculated Centimeters: 147.253521 Weight (Pounds): 103 Weight (Calculated Kilograms): 46.805 BMI: 21.6 Delmar Nutrition Score: Adequate [place] Nutrition Risk Score: 20 Dietary Referral Nutrition Risk Factors: Unplanned Loss >10lbs Nutrition Risk Comment: Physical Findings Physical Appearance: 21.6 Skin Appearance Skin Appearance: Edema Edema Location Modifier: Edema Location: Type of Edema: Degree of Edema: Gastrointestinal Symptoms GI Symtoms: Weight Changes Tube Present: Bowel Sounds: Recent Bowel Pattern: Colostomy Stool Characteristics: Brown, Soft Nutritional Diagnosis Nutritional Risk Acuity 1: Acute/ES Renal Nutritional Risk Acuity 2: Sepsis Nutritional Risk Acuity 3: Weight Loss Past Medical History: Enterocutaneous fistula, HTN, hyperlipidemia, asthma, COPD, hiatal hernia, arthritis, family hx of liver Ca, stroke, colostomy Nutritional Acuity: 1-High Nutrition Diagnosis: Inadequate Food Intake Nutrition Etiology: Physiological Causes Nutrition Problem/Etiology/Sym: Inadequate food intake, as related to physiological causes, as evidenced by acute renal injury, nausea, and vomiting. Energy Requirement: 1265 ([place] St Jeor, AF-1.5) Protein Requirement: 47 (1g/kg) Fluid Requirement: 1265 Diet Type: Diet as Tolerated JUAN/REG Nutrition Intervention: Cont diet as ordered, Encourage intake Food Likes: SOY MILK, Please offer! We do have it Additional Diet Restrictions: ALLERGY- iodine salt, bananas, honey, milk, and strawberries. Diet Comment To RSA: Enjoys soy milk. Pt does not have lower teeth, recommend softer foods. Nutrition Monitoring & Eval RD Patient Assessment Time: [address] Assessment Type: RD Assessment Patient Nutrition Acuity: 1-High Follow Up Date: Oct 20, 2017 Nutritional Comment: 10/13. Admitted to [facility] for for therapy and strengthening. Pt transferred from med floor, being treated for sepsis, acute kidney injury, fistula, and pyelonephritis. Pt has a hx of multiple abdominal surgeries. Pt is on JUAN, consumed 75% of regular meal this morning. Pt noted unplanned weight loss of >10lbs. Noteable labs include: low RBC 3.15, Hgb 8.8, Hct 27.4, albumin 2.9, and total protein 5.8. Recommend pt receives 1096 kcal and 37g protein. Pt is currently 103lbs and has a normal BMI of 21.6. Will monitor pt weight, intake and labs. LEYOLMAN Oct 13, 2017 08:35
[2017-10-13] MEDS: PHENAZOPYRIDINE 200 MG TAB PO PRN (14:05)
--- NOTE | 2017-10-13 16:12 | OT ECF NOTE ---
Type of Note: Initial Note Primary Medical Diagnosis: Generalized weakness s/p recent hospitalization 10/08/17 thru 10/12/17 (see EMR for extensive details) Occupational Therapy Evaluation Date: 10/13/17 SUBJECTIVE: Prior Hospitalization: [facility] 10/08/17 thru 10/12/17 Prior Level of Function: Prior to recent decline, pt reports independence with ADLs/IADLs and ambulating household distances. She has 1x/week assist for cleaning through the senior center. Pt reports occasionally utilizing a 4WW. Prior Living Status: Mobile home Community Services: No known needs Home Accessibility: Ramp Equipment Owned: Rollator Toilet riser Wheelchair Medical Complications/Past Medical History: Please refer to EMR Psychosocial Support: Supportive spouse Pain Scale (0-10): 8/10 in lower back and abdomen supine in bed. Pt reporting pain medication provided prior. OBJECTIVE: Strength: MMT: Right Left Shoulder Flexion WFL WFL Elbow Flexion WFL WFL Wrist Extension WFL WFL Manager Protein WFL WFL (5= normal, 4= good, 3= fair, 2= poor, 1= trace) ROM: Both upper extremities, Minimally limited Sensation: Intact, No concerns Functional Transfer: Assistive Device: Front wheeled walker, Gait belt Transfer Ability: Minimum assistance, 1-person assist ADL: Upper body dressing: Assistive device: Upper body dressing ability: N/T Lower body dressing: Assistive device: Lower body dressing ability: N/T Toileting: Assistive device: Toileting ability: N/T Grooming/hygiene: Assistive device: Grooming ability: N/T Bathing: Assistive device: Bathing ability: N/T Standardized Assessment: Hector Index of Activities of Daily Livin/20 upon initial evaluation (10/13/17). ASSESSMENT: Pamela Hendricks" presents to [facility] s/p recent hospital admission. She reports progressive decline in activity tolerance and (I) with ADLs and mobility prior to hospital admission. Prior to recent weakness, she was ambulating household distances with no AD and (I) with ADLs. Pamela will benefit from skilled OT services to improve activity tolerance and optimize (I) with ADLs prior to discharge home. Problem List/Current Limitations: Pain Decreased activity tolerance Decreased strength Generalized weakness Short Term Goals: 1) Pt will be SBA UB/LB dressing. 2) Pt will be SBA grooming/hygiene. 3) Pt will be SBA managing ostomy/toileting. 4) Pt will be Min A shower task. 5) Pt Hector Index of ADLs will improve by 2 points. Visual Associate Goals: Return home with services Patient Goals: Walk better and return home Rehabilitation Prognosis: Good Barriers to Discharge: Pain, Medical history PLAN: The patient will benefit from skilled occupational therapy services 5 times per week for 2 weeks including: Ther ex ADL training Safety training Ther act IADL training Transfer training Adaptive equip training Bed mobility Energy conservation Thank you for this referral. If you have any questions, concerns, or comments about this report or plan, please contact me at . Peggy Giles MS, OTR/L Occupational Therapist GAYLA
[2017-10-13] MEDS: ALBUTEROL/IPRATROPIUM 3 ML NEB NEB PRN (17:09)
[2017-10-13] MEDS: MELATONIN 3 MG TAB PO SCH (23:17)
[2017-10-14] MEDS: SALMETEROL/FLUTIC 250/50 1 INH INH SCH ×2 (05:49→17:13)
[2017-10-14] MEDS: ONDANSETRON 4 MG ODT TABDP SL PRN ×2 (07:43→13:13)
[2017-10-14 08:00] VITALS: BP 116/68
[2017-10-14] MEDS: ASCORBIC ACID 500 MG TAB PO SCH ×2 (09:00→09:06)
[2017-10-14] MEDS: ASPIRIN 81 MG CHEW PO SCH ×2 (09:00→09:06)
[2017-10-14] MEDS: LISINOPRIL 20 MG TAB PO SCH (09:06)
[2017-10-14] MEDS: PANTOPRAZOLE SOD 40 MG TABEC PO SCH (09:06)
[2017-10-14] MEDS ORDERED: LEVO750T44 PO (11:33)
[2017-10-14] MEDS ORDERED: ONDANSETRON 4 MG ODT TABDP SL PRN (14:10)
--- NOTE | 2017-10-14 14:17 | Hospitalist Progress Note ---
Physical Exam Vital Signs Date Time Temp Pulse Resp B/P (MAP) Pulse Ox O2 Delivery O2 Flow Rate FiO2 10/14/17 09:00 92 Nasal Cannula 2.0 10/14/17 08:00 98.6 98 16 116/68 (84) Intake and Output 10/14/17 06:59 Intake Total 360 ml Output Total 1875 ml Balance -1515 ml Intake Oral 360 ml Output Urine Total 1600 ml Emesis 275 ml # Bowel Movements 1 # Emeses 2 Assessment and Plan Problems: (1) Sepsis Status: Acute Assessment & Plan: She never did have a fever, but did have an elevated WBC and lactic acidosis at admission. Her lactate and WBC quickly improved with fluid a dministration. Currently, afebrile and BP stable. Resolved. (2) Pyelonephritis Assessment & Plan: She presented with right flank pain. The culture is E Coli and E faecalis. She has been on multiple courses of antibiotics prior to admission and has a possible enterovesical fistula. She was started on empiric treatment with Primaxin and vancomycin. Changed to IV Levaquin, then PO Levaquin. Anticipate therapy for total 14d (through 09.21.17), stent scheduled to be removed 10.15.2017. (3) GALINA (acute kidney injury) Assessment & Plan: Resolved with IV fluids. (4) Hyperkalemia Assessment & Plan: Resolved with IV fluids. (5) Enterovesical fistula Status: Chronic Assessment & Plan: She is followed by both Dr. Sandy and Dr. Morales. Dr. Morales has recommended that her catheter remain in place. She had a ureteral stent placed on the right on 09/28 because of the proximity of the possible fistula to orifice of the ureter. She is scheduled to have the stent removed in one week. (6) COPD (chronic obstructive pulmonary disease) Status: Chronic Assessment & Plan: On Advair, ipratropium, albuterol chronically. Continued. (7) Low back pain Status: Chronic Assessment & Plan: Since August. The patient's CT of abdomen shows old compression fxs, DJD and severe disc space narrowing. Her pain started rather acutely in August but without history of trauma. Will try a Lidoderm patch. Central Venous Access Medical Necessity for Access: IV Access, Medication Administration Time Spent on Plan of Care: < 30 min MALLORY BLOCK MD Oct 14, 2017 14:17
--- NOTE | 2017-10-14 14:36 | Hospitalist Progress Note ---
Subjective Progress Notes Subjective The patient has not been able to keep anything down today. Vomiting bile. Has ongoing abdominal pain. Physical Exam Vital Signs Date Time Temp Pulse Resp B/P (MAP) Pulse Ox O2 Delivery O2 Flow Rate FiO2 10/14/17 09:00 92 Nasal Cannula 2.0 10/14/17 08:00 98.6 98 16 116/68 (84) Intake and Output 10/14/17 06:59 Intake Total 360 ml Output Total 1875 ml Balance -1515 ml Intake Oral 360 ml Output Urine Total 1600 ml Emesis 275 ml # Bowel Movements 1 # Emeses 2 General Appearance: Alert, Awake, Other (Appears ill.) Neuro: No Gross deficits Eyes: PERRLA Cardiovascular: Other (Tachy, regular.) Respiratory: Clear to Auscultation GI: Other (Soft, nondistended, diffusely tender to palpation. Ostomy bag in place in R abdomen. BS quiet.) Extremities: Warm, Perfused, Edema Integumentary: Generalized Fragile Skin Psych: Appropriate Mood & Affect Assessment and Plan Problems: (1) Nausea & vomiting Status: Acute Assessment & Plan: The patient has recurrent nausea and vomiting. She has not been able to keep fluids down today at all. Zofran ordered but she is on Levaquin. Will try Phenergan. Labs ordered. (2) Sepsis Status: Acute Assessment & Plan: She never did have a fever, but did have an elevated WBC and lactic acidosis at admission. Her lactate and WBC quickly improved with fluid administration. Currently, afebrile and BP stable. Resolved. (3) Pyelonephritis Assessment & Plan: She presented with right flank pain. The culture is E Coli and E faecalis. She has been on multiple courses of antibiotics prior to admission and has a possible enterovesical fistula. She was started on empiric treatment with Primaxin and vancomycin. Changed to IV Levaquin, then PO Levaquin. Anticipate therapy for total 14d (through 09.21.17), stent scheduled to be removed 10.15.2017. (4) GALINA (acute kidney injury) Assessment & Plan: Resolved with IV fluids. (5) Hyperkalemia Assessment & Plan: Resolved with IV fluids. (6) Enterovesical fistula Status: Chronic Assessment & Plan: She is followed by both Dr. Sandy and Dr. Morales. Dr. Morales has recommended that her catheter remain in place. She had a ureteral stent placed on the right on 09/28 because of the proximity of the possible fistula to orifice of the ureter. She is scheduled to have the stent removed 10/15/17. (7) COPD (chronic obstructive pulmonary disease) Status: Chronic Assessment & Plan: On Advair, ipratropium, albuterol chronically. Continued. (8) Low back pain Status: Chronic Assessment & Plan: Since August. The patient's CT of abdomen shows old compression fxs, DJD and severe disc space narrowing. Her pain started rather acutely in August but without history of trauma. Will try a Lidoderm patch. Central Venous Access Medical Necessity for Access: IV Access, Medication Administration Time Spent on Plan of Care: < 30 min MALLORY BLOCK MD Oct 14, 2017 14:36
[2017-10-14 15:06] LABS: PLATELET COUNT, AUTOMATED 588 K/uL (150-450)
[2017-10-14] MEDS: PROMETHAZINE HCL 25 MG TAB PO PRN ×2 (15:49→21:53)
[2017-10-14 18:35] VITALS: BP 143/76
[2017-10-14] MEDS: MELATONIN 3 MG TAB PO SCH (21:00)
[2017-10-15] MEDS: SALMETEROL/FLUTIC 250/50 1 INH INH SCH (06:03)
--- NOTE | 2017-10-15 10:15 | OT ECF NOTE ---
Type of Note: Discharge Note Primary Medical Diagnosis: Generalized weakness s/p recent hospitalization 10/08/17 thru 10/12/17 (see EMR for extensive details) Occupational Therapy Evaluation Date: 10/13/17 SUBJECTIVE: Prior Hospitalization: [facility] 10/08/17 thru 10/12/17 Prior Level of Function: Prior to recent decline, pt reports independence with ADLs/IADLs and ambulating household distances. She has 1x/week assist for cleaning through the senior center. Pt reports occasionally utilizing a 4WW. Prior Living Status: Mobile home Community Services: No known needs Home Accessibility: Ramp Equipment Owned: Rollator Toilet riser Wheelchair Medical Complications/Past Medical History: Please refer to EMR Psychosocial Support: Supportive spouse Pain Scale (0-10): 8/10 in lower back and abdomen supine in bed. Pt reporting pain medication provided prior. OBJECTIVE: Strength: MMT: Right Left Shoulder Flexion WFL WFL Elbow Flexion WFL WFL Wrist Extension WFL WFL Brick Grader WFL WFL (5= normal, 4= good, 3= fair, 2= poor, 1= trace) ROM: Both upper extremities, Minimally limited Sensation: Intact, No concerns Functional Transfer: Assistive Device: Front wheeled walker, Gait belt Transfer Ability: Minimum assistance, 1-person assist ADL: Upper body dressing: Assistive device: Upper body dressing ability: N/T Lower body dressing: Assistive device: Lower body dressing ability: N/T Toileting: Assistive device: Toileting ability: N/T Grooming/hygiene: Assistive device: Grooming ability: N/T Bathing: Assistive device: Bathing ability: N/T Standardized Assessment:18). Hector Index of Activities of Daily Livin/20 upon initial evaluation (10/13/17). 1020 upon discharge (10/15/17). ASSESSMENT: July"Stephanie" presented to [facility] s/p recent hospital admission. She reports progressive decline in activity tolerance and (I) with ADLs and mobility prior to hospital admission. Prior to recent weakness, she was ambulating household distances with no AD and (I) with ADLs. She has been discharged to [facility] medical for further skilled care s/p procedure this morning. Problem List/Current Limitations: Pain Decreased activity tolerance Decreased strength Generalized weakness Short Term Goals: 1) Pt will be SBA UB/LB dressing. NOT MET 2) Pt will be SBA grooming/hygiene. NOT MET 3) Pt will be SBA managing ostomy/toileting. NOT MET 4) Pt will be Min A shower task. NOT MET 5) Pt Hector Index of ADLs will improve by 2 points. NOT MET Jail Goals: Return home with services Patient Goals: Walk better and return home Rehabilitation Prognosis: Good Barriers to Discharge: Pain, Medical history PLAN: Discharge skilled OT services, pt discharged to [facility] medical. Thank you for this referral. If you have any questions, concerns, or comments about this report or plan, please contact me at . Peggy Giles MS, OTR/L Occupational Therapist GAYLA
--- NOTE | 2017-10-15 12:58 | PT ECF NOTE ---
Type of Note: Discharge Summary Primary Medical Diagnosis: Sepsis, see [facility] and physician H&P Physical Therapy Discharge Date: 10/15/17 SUBJECTIVE: Prior Hospitalization: [facility] acute 10/08-10/12/17 Prior Level of Function: Pt reports prior to recent decline, she was able to ambulate with a Rollator walker house-hold distances including ascending/descending a ramp into their home. Prior Living Status: Single level house, Spouse (recent medical problems and is unable to physically assist Pt) Community Services: [facility] for cleaning services once a week Home Accessibility: Ramp Equipment Owned: Rollator Medical Complications/Past Medical History: extensive, please see [employer] Psychosocial Support: supportive OBJECTIVE: Bed Mobility: Min A Assistive device: Bed rail, Head of bed elevated Transfers: Minimum assistance/Moderate assistance for frequent posterior loss of balance Assistive Device: Front wheeled walker Gait: Minimum assistance x 15' for posterior loss of balance. Increased SOB noted with activity. Assistive device: Front wheeled walker ASSESSMENT: The patient underwent a procedure for a stent removal on the morning of 10/15/17. After surgery she was transferred to the medical/surgical floor at [facility], therefore PT services were discharged from [facility]. Problem List/Current Limitations: Pain Decreased activity pablo Decreased strength Decreased coordination Decreased balance Generalized weakness Shortness of breath Short Term Goals: (not met) 1. Mod I bed mobility. 2. Mod I transfers. 3. Mod I x 50' with RW. 4. Ascend/descend ramp SBA with RW. Pattern Changer Goals: return home Patient Goals: return home Rehabilitation Prognosis: Fair Barriers for Discharge: SOB PLAN: The patient was discharged d/t transfer to medical/surgical floor at [facility] after a stent removal procedure. Thank you for this referral. If you have any questions, concerns, or comments about this report or plan, please contact me at . Jossy Molina, PT, DPT STEPHANIED
--- NOTE | 2017-10-15 18:05 | Hospitalist Depart ---
Discharge Summary Reason for Hosp/Final Diag: (1) Nausea & vomiting Status: Acute Hospital Course & Plan: The patient has recurrent nausea and vomiting. She has not been able to keep fluids down today at all. Zofran ordered but she is on Levaquin. Will try Phenergan. Labs ordered. She will be transferred to [facility] Medical floor. (2) Sepsis Status: Acute Hospital Course & Plan: She never did have a fever, but did have an elevated WBC and lactic acidosis at admission. Her lactate and WBC quickly improved with fluid administration. Currently, afebrile and BP stable. Resolved. (3) Pyelonephritis Status: Acute Hospital Course & Plan: She presented with right flank pain. The culture is E Coli and E faecalis. She has been on multiple courses of antibiotics prior to admission and has a possible enterovesical fistula. She was started on empiric treatment with Primaxin and vancomycin. Changed to IV Levaquin. Anticipate therapy for total 14d (through 10.22.17), stent scheduled to be removed 10.15.2017. (4) GALINA (acute kidney injury) Hospital Course & Plan: Resolved with IV fluids. (5) Hyperkalemia Hospital Course & Plan: Resolved with IV fluids. (6) Enterovesical fistula Status: Chronic Hospital Course & Plan: She is followed by both Dr. Sandy and Dr. Morales. Dr. Morales has recommended that her catheter remain in place. She had a ureteral stent placed on the right on 09/28 because of the proximity of the possible fistula to orifice of the ureter. She is scheduled to have the stent removed 10/15/17. (7) COPD (chronic obstructive pulmonary disease) Status: Chronic Hospital Course & Plan: On Advair, ipratropium, albuterol chronically. Continued. (8) Low back pain Status: Chronic Hospital Course & Plan: Since August. The patient's CT of abdomen shows old compression fxs, DJD and severe disc space narrowing. Her pain started rather acutely in August but without history of trauma. Will try a Lidoderm patch. Departure Latest Vital Signs Vital Signs 10/14/17 10/14/17 10/15/17 18:35 20:30 03:26 Temp 98.8 Pulse 106 Resp 20 B/P (MAP) 143/76 (98) Pulse Ox 90 O2 Delivery Nasal Cannula O2 Flow Rate 2.0 Weight (Pounds): 103 Weight (Ounces): 3.0 Result Diagram: 10/14/17 1502 10/14/17 1502 Condition: No Change Discharge: Other Facility PT/OT Follow Up For: PT For Strengthening, PT Evaluation and Treat, OT Evaluation and Treat Home Health RN Follow Up For: Nursing Assessment Home Health DIRECTOR OF CONSUMER MARKETING Follow Up For: ADL Assistance Discharge Instructions Home Meds Reported Medications Levofloxacin 750 Mg Tab (LEVAQUIN 750 MG TAB) 750 Mg Tablet, 750 MG PO QODAY, TAB 10/14/17 Oxycodone Hcl/Acetaminophen (OXYCODONE-ACETAMINOPHEN 10-325) 1 Each Tablet, 1 TAB PO PRN for PAIN 10/13/17 Phenazopyridine Hcl (PHENAZOPYRIDINE HCL) 200 Mg Tablet, 200 MG PO TID PRN for BURNING WITH URINATION, #30 TAB 09/28/17 Lisinopril (LISINOPRIL) 20 Mg Tablet, 20 MG PO QDAY, TAB 09/25/17 Pantoprazole Sodium (PANTOPRAZOLE SODIUM) 40 Mg Tablet.dr, 40 MG PO QDAY, #90 TAB.SR 02/19/17 Melatonin (MELATONIN) 3 Mg Tablet, 2 TAB PO QHS 02/17/17 Albuterol Sulfate 0.083% (ALBUTEROL SULFATE 0.083%) 2.5 Mg/3 Ml Vial.neb, 2.5 MG INH QID, INH 02/17/17 Albuterol Sulfate 90 Mcg/Act (PROAIR HFA 90 MCG/ACT) 8.5 Gm Hfa.aer.ad, 2-4 PUFF IH PRN, INHALER 02/17/17 Fluticasone/Salmeterol (ADVAIR 250-50 DISKUS) 1 Each Disk.w.dev, 1 PUFF IH BID 02/17/17 Oxygen (OXYGEN) Inha, 2 L INH cont., L 04/24/15 Ipratropium [place] (IPRATROPIUM BROMIDE) 0.2 Mg/1 Ml Solution, 1 ML IH QID 08/07/14 Ca Carbonate/Vitamin D3/Vit K (VIACTIV SOFT CHEW TABLET) 1 Each Tab.chew, 1 EACH PO DAILY, TAB.CHEW 12/14/13 Tramadol Hcl (TRAMADOL HCL) 50 Mg Tablet, 50-100 MG PO Q6H PRN for PAIN 12/14/13 Cholecalciferol (Vitamin D3) (VITAMIN D) 2,000 Unit Capsule, 2000 UNIT PO DAILY, CAPSULE 12/14/13 Ropinirole Hcl (ROPINIROLE HCL) 0.5 Mg Tablet, 0.5 MG PO BID PRN for SPASMS take 1/2 tab 2-3 times a day as needed for leg cramps 11/21/13 Aspirin (ASPIRIN) 81 Mg Tab.chew, 81 MG PO QDAY, TAB.CHEW TAKE 1 TABLET BY MOUTH EVERY DAY 11/21/13 Ascorbic Acid (VITAMIN C) 250 Mg Tablet, 250 MG PO QDAY 11/21/13 [place]-3 Fatty Acids (FISH OIL) 300 Mg Capsule, 300 MG PO QDAY, CAPSULE 11/21/13 Multivitamin (MULTIPLE VITAMINS) 1 Each Tablet, 1 EACH PO QDAY 11/21/13 Discontinued Reported Medications Sulfamethoxazole/Trimet 800-160 Mg Tab (BACTRIM DS TABLET) 1 Each Tablet, 1 TAB PO Q12H, #14 TAB 09/28/17 Oxycodone Hcl/Acetaminophen (OXYCODONE-ACETAMINOPHEN 5-325) Unknown Strength Tablet, PO PRN, TAB 02/17/17 Oxybutynin Chloride (DITROPAN XL) 10 Mg Tab.er.24, 10 MG PO QDAY PRN for URGENCY, #10 TAB 09/28/17 Venous Thromboembolism Antithrombotics Is Pt On Any Antithrombotics?: CJ Browne Oct 15, 2017 18:05
== END 2017-10-15 06:30 | disposition short-term general hospital (02) | DRG 948 ==
LOC: ECF 13:15
PROVIDERS: ADMIT Internal Medicine; ATTEND Internal Medicine
DX: R53.1 Weakness (principal); N32.1 Vesicointestinal fistula; N12 Tubulo-interstitial nephritis, not specified as acute or chronic; B96.20 Unspecified Escherichia coli [E. coli] as the cause of diseases classified elsewhere; B96.89 Other specified bacterial agents as the cause of diseases classified elsewhere; J44.9 Chronic obstructive pulmonary disease, unspecified; G89.29 Other chronic pain; R11.2 Nausea with vomiting, unspecified; Z66 Do not resuscitate; Z99.81 Dependence on supplemental oxygen; Z88.5 Allergy status to narcotic agent; Z91.040 Latex allergy status; Z88.8 Allergy status to other drugs, medicaments and biological substances; Z91.011 Allergy to milk products; Z91.018 Allergy to other foods; Z87.891 Personal history of nicotine dependence
CPT/HCPCS: 36415; 82040; 82247; 82310; 82374; 82435; 82565; 82947; 84075; 84132; 84155; 84295; 84450; 84460; 84520; 85025; 94640; 97162; 97166; J3535; Q0169; S0119

== ENCOUNTER 2017-10-15 00:37 | Observation (INO) | payer MEDICARE ==
[~2017-10-15] VITALS: Ht 147.3 cm; Wt 47.2 kg
[2017-10-15] VITALS (20 sets, daily range): BP systolic 100–148; BP diastolic 47–127
[~2017-10-15 00:37] MED LIST changes: +LEVO750T44 PO; +OXYC1TAB78 PO
[2017-10-15 06:29] LABS: PLATELET COUNT, AUTOMATED 668 K/uL (150-450)
[2017-10-15] MEDS ORDERED: FAMOTIDINE 20 MG/50 ML PREMIX IVPB ONE (06:40)
[2017-10-15] MEDS ORDERED: LIDOCAINE/SOD BICARB 8.4% SYR ID ONE (06:45)
[2017-10-15] MEDS ORDERED: NORMOSOL R SOLN(*) 1000 ML BAG 1,000 ML IV PRN (06:45)
[2017-10-15] MEDS ORDERED: ceFAZolin(*) 1 GM VIAL 1 GM in NS(*) 0.9% 100 ML ADDVANT BAG 100 ML IVPB ONE (07:15)
[2017-10-15] MEDS ORDERED: LIDOCAINE 2% JELLY 30 ML TUBE ONE (07:40)
[2017-10-15] MEDS ORDERED: fentaNYL CITR 100 MCG/2 ML AMP ONE (08:12)
[2017-10-15] MEDS ORDERED: ACETAMINOPHEN(*)1000 MG/100 ML 100 ML IVPB ONE (08:16)
[2017-10-15] MEDS ORDERED: NS(*) 0.9% 1000 ML BAG 1,000 ML ONE (08:29)
--- NOTE | 2017-10-15 09:17 | OPERATIVE REPORT 1 ---
EVENT DATE: October 15, 2017 SURGEON: Khoi Morales MD ANESTHESIOLOGIST: Pérez Davies MD ANESTHESIA: Local anesthetic with monitoring. PREOPERATIVE DIAGNOSIS Right ureteral stent with history of enterovesical fistula. POSTOPERATIVE DIAGNOSIS Right ureteral stent with history of enterovesical fistula. PROCEDURE PERFORMED Flexible cystoscopy with grasping and removal of right ureteral stent. ESTIMATED BLOOD LOSS Minimal. IV FLUIDS Crystalloids. DRAINS 16-Maltese Gagnon catheter. COMPLICATIONS None. CONDITION The patient taken to the recovery room in stable condition. STATEMENT OF MEDICAL NECESSITY The patient is a 77-year-old white female who was noted to have a right vesicoenteric fistula and had a double-J stent placement approximately 2 weeks ago. She subsequently developed questionable sepsis and was admitted to the hospital where a Gagnon catheter was placed and broad spectrum antibiotics were administered. She is now on the extended care facility for reconditioning and is still on Levaquin. She is now being brought to the operating room for planned anesthetic cystoscopy with removing of double-J sent. Of note, she did experience some decreased p.o. with nausea and vomiting over the past 36 hours. I have discussed this finding with Dr. Sandy of general surgery who recommends readmission to the hospital after removal of stent today. DESCRIPTION OF PROCEDURE The patient was brought to the operating room. She was then prepped in the frog-leg position on the hospital placentia-linda hospital bed. The flexible [place] cystoscope was then introduced into the urethra after she was prepped. The stent was seen emanating from the right ureteral orifice. It was grasped at its distal end and removed slowly intact. Following this, a 16-Maltese Gagnon catheter was placed with 10 cc of water in the balloon. This was placed to gravity drainage. She was then transferred back to the recovery area in stable condition. PLAN The plan will be to have the patient be readmitted to the hospital for continued observation given her nausea and vomiting. Will also keep her Gagnon catheter in place until she has recovered for urine output monitoring and for maximum drainage of her system. GAYLA
[2017-10-15] MEDS ORDERED: NS(*) 0.9% 1000 ML BAG 1,000 ML IV PRN ×2 (09:30→14:25)
[2017-10-15] MEDS: fentaNYL CITR 100 MCG/2 ML AMP IVP PRN ×4 (11:06→23:46)
[2017-10-15] MEDS ORDERED: PROMETHAZINE 25 MG/ML 1 ML AMP IVP PRN (11:45)
[2017-10-15] MEDS ORDERED: ONDANSETRON 4 MG/2 ML VIAL IVP PRN (11:45)
[2017-10-15] MEDS ORDERED: KETOROLAC 15 MG/ML VIAL IVP ONE (13:40)
[2017-10-15] MEDS ORDERED: IOPAMIDOL 76% 75 ML INFUS BTL 0 ML ONE (14:29)
[2017-10-15] MEDS ORDERED: ALBUTEROL 8 GM INHALER INH PRN (14:30)
--- NOTE | 2017-10-15 14:31 | Hospitalist Consultation ---
History of Present Illness Requesting Physician Dr. Morales Reason for Consult Medical Management Chief Complaint s/p stent removal, UTI History of Present Illness She was admitted s/p stent removal by Dr. Morales today. She has a complicated PMHx of multiple abdominal surgeries and complications presented with n/v, burning on urination, decreased ostomy output, back pain. Reports back pain started 3 weeks ago, noted decrease in ostomy output over few days, has had worsening of back pain and burning with urination. 8 days prior to admission had cystoscopy with Dr Morales and determined to have fistula between gut and bladder. 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 Status: Acute (4) Enterovesical fistula Status: Chronic Home Meds Reported Medications Levofloxacin 750 Mg Tab (LEVAQUIN 750 MG TAB) 750 Mg Tablet, 750 MG PO QODAY, TAB 10/14/17 Oxycodone Hcl/Acetaminophen (OXYCODONE-ACETAMINOPHEN 10-325) 1 Each Tablet, 1 TAB PO PRN for PAIN 10/13/17 Phenazopyridine Hcl (PHENAZOPYRIDINE HCL) 200 Mg Tablet, 200 MG PO TID PRN for BURNING WITH URINATION, #30 TAB 09/28/17 Lisinopril (LISINOPRIL) 20 Mg Tablet, 20 MG PO QDAY, TAB 09/25/17 Pantoprazole Sodium (PANTOPRAZOLE SODIUM) 40 Mg Tablet.dr, 40 MG PO QDAY, #90 TAB.SR 02/19/17 Melatonin (MELATONIN) 3 Mg Tablet, 2 TAB PO QHS 02/17/17 Albuterol Sulfate 0.083% (ALBUTEROL SULFATE 0.083%) 2.5 Mg/3 Ml Vial.neb, 2.5 MG INH QID, INH 02/17/17 Albuterol Sulfate 90 Mcg/Act (PROAIR HFA 90 MCG/ACT) 8.5 Gm Hfa.aer.ad, 2-4 PUFF IH PRN, INHALER 02/17/17 Fluticasone/Salmeterol (ADVAIR 250-50 DISKUS) 1 Each Disk.w.dev, 1 PUFF IH BID 02/17/17 Oxygen (OXYGEN) Inha, 2 L INH cont., L 04/24/15 Ipratropium [place] (IPRATROPIUM BROMIDE) 0.2 Mg/1 Ml Solution, 1 ML IH QID 08/07/14 Ca Carbonate/Vitamin D3/Vit K (VIACTIV SOFT CHEW TABLET) 1 Each Tab.chew, 1 EACH PO DAILY, TAB.CHEW 12/14/13 Tramadol Hcl (TRAMADOL HCL) 50 Mg Tablet, 50-100 MG PO Q6H PRN for PAIN 12/14/13 Cholecalciferol (Vitamin D3) (VITAMIN D) 2,000 Unit Capsule, 2000 UNIT PO DAILY, CAPSULE 12/14/13 Ropinirole Hcl (ROPINIROLE HCL) 0.5 Mg Tablet, 0.5 MG PO BID PRN for SPASMS take 1/2 tab 2-3 times a day as needed for leg cramps 11/21/13 Aspirin (ASPIRIN) 81 Mg Tab.chew, 81 MG PO QDAY, TAB.CHEW TAKE 1 TABLET BY MOUTH EVERY DAY 11/21/13 Ascorbic Acid (VITAMIN C) 250 Mg Tablet, 250 MG PO QDAY 11/21/13 [place]-3 Fatty Acids (FISH OIL) 300 Mg Capsule, 300 MG PO QDAY, CAPSULE 11/21/13 Multivitamin (MULTIPLE VITAMINS) 1 Each Tablet, 1 EACH PO QDAY 11/21/13 Discontinued Reported Medications Sulfamethoxazole/Trimet 800-160 Mg Tab (BACTRIM DS TABLET) 1 Each Tablet, 1 TAB PO Q12H, #14 TAB 09/28/17 Oxycodone Hcl/Acetaminophen (OXYCODONE-ACETAMINOPHEN 5-325) Unknown Strength Tablet, PO PRN, TAB 02/17/17 Oxybutynin Chloride (DITROPAN XL) 10 Mg Tab.er.24, 10 MG PO QDAY PRN for URGENCY, #10 TAB 09/28/17 Allergies: Coded Allergies: banana (Verified Allergy, Severe, ITCHING EYES, EARS, THROAT AND BODY, 10/14/17) honey (Verified Allergy, Severe, ITCHING ALL OVER, 10/14/17) iodine (Verified Allergy, Severe, HIVES AND ITCHING ALL OVER, DIZZINES, 10/14/17) morphine (Verified Allergy, Severe, BACK ACHES, 10/14/17) Isqqbae-Abo-Xhn Reductase Inhibitor (Verified Allergy, Intermediate, MUSCLE CRAMPING, 10/14/17) milk (Verified Allergy, Intermediate, BLOATING REALLY BAD, 10/14/17) latex (Verified Allergy, Mild, BECAUSE SHE ITCHES IN HER EARS WITH BANANAS, 10/14/17) strawberry (Verified Allergy, Mild, ITCHING, 10/14/17) hydromorphone (Verified Adverse Reaction, Unknown, 10/14/17) causes generalized itching Uncoded Allergies: IODINE SALT (Allergy, Severe, ITCHING ALL OVER, 08/07/14) Patient History: FH: dementia MOTHER, Onset:60 years & older ( AT AGE 92 ) FH: diabetic complications CHILD FH: liver cancer BROTHER OR SISTER, Onset:60 years & older FH: stroke CHILD, Onset:51 CHILD Hx Smoking: Yes (SMOKED FOR 50 YEARS, 1 PPD quit 2009) Smoking Status: Former Smoker, Heavy Tobacco Smoker Exposure to Second Hand Smoke?: No Caffeine Intake: Coffee Caffeine/Cups Per Day: very occ Hx Alcohol Use: Yes ("not for a long time.") Hx Substance Use Disorder: No Social Drug Use: Never Review of Systems All Systems Reviewed/Normal: Yes, Except as Noted Gastrointestinal: Nausea, Vomiting, Abdominal Pain Exam Vital Signs Vital Signs Date Time Temp Pulse Resp B/P (MAP) Pulse Ox O2 Delivery O2 Flow Rate FiO2 10/15/17 10:02 99.1 94 16 121/65 (83) 95 Nasal Cannula 4.0 General Appearance: Alert, Awake, No Acute Distress, Afebrile Neuro: No Gross deficits Cardiovascular: Regular Rate and Rhythm Respiratory: No Respiratory Distress, Clear to Auscultation GI: Other (pain upon palpation to abdomen) Psych: Alert & Oriented X3, Appropriate Mood & Affect Medical Decision Making Data Points Result Diagram: 10/15/1761710/15/17617 Assessment and Plan Problems: (1) Pyelonephritis Status: Acute Assessment & Plan: R CVA tenderness, with nausea and vomiting in patient with UTI. She had renal stent removed today. She will be placed on Levaquin 750mg q 24 hours. Continue to watch creatinine. (2) Enterovesical fistula Status: Chronic Assessment & Plan: Dr. Sandy following. No intervention at this time. (3) COPD (chronic obstructive pulmonary disease) Status: Chronic Assessment & Plan: She is on chronic treatment with Advair, ipratropium, and albuterol. (4) Nausea & vomiting Status: Acute Assessment & Plan: She will be given antiemetics. She will get CT of abdomen and pelvis with contrast. Dr. Sandy following. Central Venous Access Medical Necessity for Access: IV Access, Medication Administration Venous Thromboembolism Antithrombotics Is Pt On Any Antithrombotics?: No Exam Sepsis Risk: No Definite Risk CJ HOUSER Oct 15, 2017 14:31
[2017-10-15] MEDS: LEVOFLOXACIN/D5W 750 MG/150 ML 150 ML IVPB SCH (16:33)
[2017-10-15] MEDS: IPRATROPIUM 0.5MG/2.5ML NEB NEB SCH (17:32)
--- NOTE | 2017-10-15 17:39 | General Surgery Consultation ---
History of Present Illness Requesting Physician Hospitalist service Reason for Consult Chronic GI issues, enterovesical fistula, concern for bowel obstruction Chief Complaint Abdominal pain History of Present Illness 77-year-old female who has been admitted to the hospital with abdominal pain a couple of weeks ago and also was found to have symptoms suspicious for an enterovesical fistula and who was transferred to extended care for further rehabilitation was being taken to the cystoscopy suite today by Dr. Morales for stent removal. He found her to be in a lot of pain with little oral intake over the last couple of days and little stoma output. He contacted the hospitalist service who admitted her back to inpatient [facility] and I am consulting concerning her GI issues. She has a very complex abdominal surgical history that started with a Larios's procedure for diverticulitis with colostomy takedown complicated by an anastomotic leak requiring another colostomy complicated by small bowel ischemia that necessitated a small bowel resection and reanastomosis complicated by an enterocutaneous fistula treated initially by conservative means but ultimately surgical resection of the small bowel fistula. This was all done by Dr. Pritchett over the last several years. She was doing relatively well until the last couple of months when she began noticing pneumaturia and recurring urinary tract infections. This culminated in a couple of weeks ago when she was brought into the emergency room with more significant abdominal pain. She had previously had a right ureteral stent placed by Dr. Morales due to what he felt was the position of the opening of the fistula in her bladder adjacent to the ureter and concern about blocking ureteral inflow into the bladder. It was felt that the abdominal pain at that time was due to urinary tract infection and possibly the stent. She seemed to improve during that hospitalization and was brought up to extended care facility but has been noted to be having increased nausea and vomiting over the last couple of days and anecdotally was observed to have decreased stoma output. History Problems: (1) Insomnia Status: Chronic (2) HTN (hypertension) Status: Chronic (3) RLS (restless legs syndrome) Status: Chronic (4) Low back pain Status: Chronic (5) COPD (chronic obstructive pulmonary disease) Status: Chronic (6) Colostomy in place Status: Chronic Home Meds Reported Medications Levofloxacin 750 Mg Tab (LEVAQUIN 750 MG TAB) 750 Mg Tablet, 750 MG PO QODAY, TAB 10/14/17 Oxycodone Hcl/Acetaminophen (OXYCODONE-ACETAMINOPHEN 10-325) 1 Each Tablet, 1 TAB PO PRN for PAIN 10/13/17 Phenazopyridine Hcl (PHENAZOPYRIDINE HCL) 200 Mg Tablet, 200 MG PO TID PRN for BURNING WITH URINATION, #30 TAB 09/28/17 Lisinopril (LISINOPRIL) 20 Mg Tablet, 20 MG PO QDAY, TAB 09/25/17 Pantoprazole Sodium (PANTOPRAZOLE SODIUM) 40 Mg Tablet.dr, 40 MG PO QDAY, #90 TAB.SR 02/19/17 Melatonin (MELATONIN) 3 Mg Tablet, 2 TAB PO QHS 02/17/17 Albuterol Sulfate 0.083% (ALBUTEROL SULFATE 0.083%) 2.5 Mg/3 Ml Vial.neb, 2.5 MG INH QID, INH 02/17/17 Albuterol Sulfate 90 Mcg/Act (PROAIR HFA 90 MCG/ACT) 8.5 Gm Hfa.aer.ad, 2-4 PUFF IH PRN, INHALER 02/17/17 Fluticasone/Salmeterol (ADVAIR 250-50 DISKUS) 1 Each Disk.w.dev, 1 PUFF IH BID 02/17/17 Oxygen (OXYGEN) Inha, 2 L INH cont., L 04/24/15 Ipratropium [place] (IPRATROPIUM BROMIDE) 0.2 Mg/1 Ml Solution, 1 ML IH QID 08/07/14 Ca Carbonate/Vitamin D3/Vit K (VIACTIV SOFT CHEW TABLET) 1 Each Tab.chew, 1 EACH PO DAILY, TAB.CHEW 12/14/13 Tramadol Hcl (TRAMADOL HCL) 50 Mg Tablet, 50-100 MG PO Q6H PRN for PAIN 12/14/13 Cholecalciferol (Vitamin D3) (VITAMIN D) 2,000 Unit Capsule, 2000 UNIT PO DAILY, CAPSULE 12/14/13 Ropinirole Hcl (ROPINIROLE HCL) 0.5 Mg Tablet, 0.5 MG PO BID PRN for SPASMS take 1/2 tab 2-3 times a day as needed for leg cramps 11/21/13 Aspirin (ASPIRIN) 81 Mg Tab.chew, 81 MG PO QDAY, TAB.CHEW TAKE 1 TABLET BY MOUTH EVERY DAY 11/21/13 Ascorbic Acid (VITAMIN C) 250 Mg Tablet, 250 MG PO QDAY 11/21/13 [place]-3 Fatty Acids (FISH OIL) 300 Mg Capsule, 300 MG PO QDAY, CAPSULE 11/21/13 Multivitamin (MULTIPLE VITAMINS) 1 Each Tablet, 1 EACH PO QDAY 11/21/13 Discontinued Reported Medications Sulfamethoxazole/Trimet 800-160 Mg Tab (BACTRIM DS TABLET) 1 Each Tablet, 1 TAB PO Q12H, #14 TAB 09/28/17 Oxycodone Hcl/Acetaminophen (OXYCODONE-ACETAMINOPHEN 5-325) Unknown Strength Tablet, PO PRN, TAB 02/17/17 Oxybutynin Chloride (DITROPAN XL) 10 Mg Tab.er.24, 10 MG PO QDAY PRN for URGENCY, #10 TAB 09/28/17 Allergies: Coded Allergies: banana (Verified Allergy, Severe, ITCHING EYES, EARS, THROAT AND BODY, 10/14/17) honey (Verified Allergy, Severe, ITCHING ALL OVER, 10/14/17) iodine (Verified Allergy, Severe, HIVES AND ITCHING ALL OVER, DIZZINES, 10/14/17) morphine (Verified Allergy, Severe, BACK ACHES, 10/14/17) Ovfrgvs-Qdc-Kiq Reductase Inhibitor (Verified Allergy, Intermediate, MUSCLE CRAMPING, 10/14/17) milk (Verified Allergy, Intermediate, BLOATING REALLY BAD, 10/14/17) latex (Verified Allergy, Mild, BECAUSE SHE ITCHES IN HER EARS WITH BANANAS, 10/14/17) strawberry (Verified Allergy, Mild, ITCHING, 10/14/17) hydromorphone (Verified Adverse Reaction, Unknown, 10/14/17) causes generalized itching Uncoded Allergies: IODINE SALT (Allergy, Severe, ITCHING ALL OVER, 08/07/14) Family History: FH: dementia MOTHER, Onset:60 years & older ( AT AGE 92 ) FH: diabetic complications CHILD FH: liver cancer BROTHER OR SISTER, Onset:60 years & older FH: stroke CHILD, Onset:51 CHILD Review of Systems All Systems Reviewed/Normal: Yes, Except as Noted Gastrointestinal: Nausea, Vomiting, Abdominal Pain Exam Vital Signs Vital Signs Date Time Temp Pulse Resp B/P (MAP) Pulse Ox O2 Delivery O2 Flow Rate FiO2 10/15/17 13:30 119/82 (94) 10/15/17 12:30 94 97 10/15/17 10:02 99.1 16 Nasal Cannula 4.0 General Appearance: Alert, Awake, No Acute Distress, Afebrile Neuro: No Gross deficits Eyes: PERRLA GI: Other (her abdomen is very soft. She has right-sided tenderness to palpat ion. Her response seems to be somewhat exaggerated as when I barely touch her skin she is jumping off the bed. I don't know what to make of this. There is no palpable mass or bulge. Her stoma is pink and there is any of soft stool in the bag during my examination.) Extremities: Warm, Perfused Psych: Alert & Oriented X3, Appropriate Mood & Affect Medical Decision Making Data Points Result Diagram: 10/15/1761710/15/17617 Assessment and Plan Problems: (1) Right sided abdominal pain Status: Acute Assessment & Plan: 10/15/17: I am not certain as to the cause of her abdominal pain. The stent was removed earlier today but she reports still being in pain. When I observed her prior to my exam, she was on her phone text in somebody and seemed fairly comfortable and seemed fairly comfortable during my interaction with her but when I barely apply my hands to the right side of her abdomen, her response is somewhat exaggerated. Her abdomen is soft and nondistended and other then the exaggerated pain her exam is benign. Her stoma seems to be functioning without any problems during my exam. Will get a CT scan of her abdomen this afternoon. We'll probably need to place a PICC line and start TPN but we will see what the CT shows and we will see if we can feed her. We will continue IV antibiotics and now that the stent is removed see if she can clear the UTI and if her symptoms improve. If she fails to improve over the next several days then we may need to consider exploratory laparotomy with lysis of adhesions and takedown of the entero-vesical fistula. This will likely be a very difficult surgery given her extensive abdominal surgical history. This will not be a small undertaking for the surgeon or the patient. She seems to understand this discussion and seems agreeable with this plan. (2) Enterovesical fistula Status: Chronic Assessment & Plan: See problem #1 (3) UTI (urinary tract infection) Status: Acute Assessment & Plan: See problem #1 Central Venous Access Medical Necessity for Access: IV Access, Medication Administration Condition Stable Time Spent: < 30 min Venous Thromboembolism Antithrombotics Is Pt On Any Antithrombotics?: No Problem Qualifiers (1) UTI (urinary tract infection): Urinary tract infection type: site unspecified Hematuria presence: without hematuria Qualified Codes: N39.0 - Urinary tract infection, site not specified SHANNON REECE MD Oct 15, 2017 17:39
--- NOTE | 2017-10-15 17:39 | RADIOLOGY IMAGING REPORT ---
FACILITY: [facility] [place] PATIENT NAME: Pamela Correa : 1940 MR: [id number] V: [id number] EXAM DATE: ORDERING PHYSICIAN: SHANNON REECE TECHNOLOGIST: [place] [facility] [place] : 1940 Visit/Account:[id number] Date of Sevice: 10/15/2017 ABDOMEN/PELVIS W/O CONTRAST HISTORY: Right sided abdominal/pelvic pain, nausea and vomiting. TECHNIQUE: CT abdomen and pelvis without intravenous contrast. One of the following dose optimization techniques was utilized in the performance of this exam: Autom ated exposure control; adjustment of the mA and/or kV according to the patient's size; or use of an i terative reconstruction technique. Specific details can be referenced in the facility's radiology C T exam operational policy. CONTRAST: None. COMPARISON: 10/08/2017 FINDINGS: Visualized lung bases: Visualized lung bases appear hyperinflated suggesting air trapping. Mild subs egmental atelectasis and basilar pleural thickening without significant asymmetry or focality. Athero sclerotic calcifications visualized coronary arteries. Hepatobiliary: Layering sludge or stone debris within otherwise unremarkable appearing gallbladder. No biliary obstruction. Liver unremarkable. Spleen: Negative. Adrenals: Negative. Pancreas: Negative. Kidneys/: Several punctate nonobstructing left renal stones. Right upper and lower pole renal taryn ical cysts. Interval removal right ureteric stent. No hydronephrosis. Balloontipped catheter within d ecompressed urinary bladder. GI: Moderate-sized sliding-type hiatal hernia. Elongate low attenuating structure adjacent to greate r curvature gastric body (example ), nonspecific but decreased in size when compared to remote or remote prior exams dating back to at least 12/2015 suggesting benign etiology. Sequela of segmental distal colonic resection with Larios's pouch and left upper quadrant colostomy. Right lower quadran t enteroenteric anastomotic site, filled with gas/debris and mildly prominent but without gross wall thickening and not an uncommon finding in the setting of [id number] anastomosis. No bowel obstructi on, gross wall thickening or epicenter of inflammation. Vessels/spaces/nodes: Severe atherosclerosis with likely chronic near if not complete occlusion dist al most infrarenal aorta and common if not also external iliac arteries. No bulky adenopathy. No free fluid. No free gas. Bones/soft tissues: Sequela of prior midline ventral wall incision. Degenerative changes lumbar spin e. Chronic compression deformity T11. Chronic compression deformity L3. Grade 1-2 anterolisthesis L4 on L5. IMPRESSION: 1. Interval removal right ureteric stent without hydronephrosis, ureteric stone or other cause for pa simon's reported right-sided symptoms identified. 2. Chronic and/or benign-appearing changes detailed above. Report Dictated By: Jonny Dyer MD at 10/15/2017 5:27 PM Report E-Signed By: Jonny Dyer MD at 10/15/2017 5:36 PM WSN:[id number]
[2017-10-15] MEDS ORDERED: IV BOLUS 500 ML IVSOL IV ONE (20:20)
[2017-10-16] VITALS (8 sets, daily range): BP systolic 112–140; BP diastolic 54–88; Ht 147.3 cm; Wt 47.2 kg
[2017-10-16] MEDS ORDERED: NS(*) 0.9% 1000 ML BAG 1,000 ML IV PRN (04:34)
[2017-10-16] MEDS: fentaNYL CITR 100 MCG/2 ML AMP IVP PRN ×2 (06:18→15:31)
[2017-10-16] MEDS: IPRATROPIUM 0.5MG/2.5ML NEB NEB SCH ×4 (06:27→17:08)
--- NOTE | 2017-10-16 09:02 | General Surgery Progress Note ---
Subjective Progress Notes Subjective Patient reports that she is feeling much better today. Her abdominal pain is much better and she has had no further nausea or vomiting. Physical Exam Vital Signs Date Time Temp Pulse Resp B/P (MAP) Pulse Ox O2 Delivery O2 Flow Rate FiO2 10/16/17 07:09 98.4 81 16 127/54 (78) 94 Nasal Cannula 10/16/17 06:14 3.0 Intake and Output 10/16/17 06:59 Intake Total 2578 ml Output Total 810 ml Balance 1768 ml Intake IV Total 2578 ml Output Urine Total 360 ml Stool Total 450 ml General Appearance: Alert, Awake, No Acute Distress, Afebrile GI: Other (soft, much improved tenderness to palpation. She does not jump off the table when I barely touch her abdomen like she did last night, I can actually pressed rather deeply today with some mild tenderness to palpation. Her stoma is functional with stool in the bag.) Extremities: Warm, Perfused Result Diagram: 10/15/1761710/15/17617 Assessment and Plan Problems: (1) Right sided abdominal pain Status: Acute Assessment & Plan: 10/15/17: I am not certain as to the cause of her abdominal pain. The stent was removed earlier today but she reports still being in pain. When I observed her prior to my exam, she was on her phone text in somebody and seemed fairly comfortable and seemed fairly comfortable during my interaction with her but when I barely apply my hands to the right side of her abdomen, her response is somewhat exaggerated. Her abdomen is soft and nondistended and other then the exaggerated pain her exam is benign. Her stoma seems to be functioning without any problems during my exam. Will get a CT scan of her abdomen this afternoon. We'll probably need to place a PICC line and start TPN but we will see what the CT shows and we will see if we can feed her. We will continue IV antibiotics and now that the stent is removed see if she can clear the UTI and if her symptoms improve. If she fails to improve over the next several days then we may need to consider exploratory laparotomy with lysis of adhesions and takedown of the entero-vesical fistula. This will likely be a very difficult surgery given her extensive abdominal surgical history. This will not be a small undertaking for the surgeon or the patient. She seems to understand this discussion and seems agreeable with this plan. 10/16/17: Patient is doing much better this morning. Stent was removed yesterday. CT scan completed last night which was relatively unremarkable. No intra-abdominal pathology to explain her pain. I continue to suspect it was the stent, especially since she is improving after the stent was removed. She is tolerating a clear diet. The hospitalist service can advance her to regular diet if desired. They will continue treating her UTI. We'll hold off on any sort of surgery at this point. If we can get her to clear her urinary tract infection then we can continue her workup as an outpatient and try to delay surgery if possible. It may be that if she continues to have urinary tract issues then surgery will be inevitable. (2) Enterovesical fistula Status: Chronic Assessment & Plan: See problem #1 (3) UTI (urinary tract infection) Status: Acute Assessment & Plan: See problem #1 Central Venous Access Medical Necessity for Access: IV Access, Medication Administration Condition Stable Time Spent: < 30 min Exam Sepsis Risk: No Definite Risk Problem Qualifiers (1) UTI (urinary tract infection): Urinary tract infection type: site unspecified Hematuria presence: without hematuria Qualified Codes: N39.0 - Urinary tract infection, site not specified SHANNON REECE MD Oct 16, 2017 09:02
[2017-10-16 09:14] LABS: PLATELET COUNT, AUTOMATED 368 K/uL (150-450)
[2017-10-16] MEDS ORDERED: KCL 2 MEQ/ML 20 MEQ/10 ML VIAL 20 MEQ in NS(*) 0.9% 1000 ML BAG 1,000 ML IV SCH (10:05)
[2017-10-16] MEDS ORDERED: KCL/NS* 20 MEQ/1000 ML PREMIX 1,000 ML IV PRN (10:15)
--- NOTE | 2017-10-16 11:25 | Hospitalist Progress Note ---
Subjective Progress Notes Subjective She reports significant improvement with less pain and nausea. Physical Exam Vital Signs Date Time Temp Pulse Resp B/P (MAP) Pulse Ox O2 Delivery O2 Flow Rate FiO2 10/16/17 11:00 102 18 10/16/17 10:50 95 Nasal Cannula 2.0 10/16/17 07:09 98.4 127/54 (78) Intake and Output 10/16/17 06:59 Intake Total 2578 ml Output Total 810 ml Balance 1768 ml IV Total 2578 ml Output Urine Total 360 ml Stool Total 450 ml General Appearance: Alert, Awake Result Diagram: 10/16/1790410/16/17904 Assessment and Plan Problems: (1) Nausea & vomiting Status: Acute Assessment & Plan: Improved. CT of abdomen and pelvis showed the chronic post- operative changes, but no acute findings. Diet will be advanced today. Dr. Sandy following. (2) Pyelonephritis Status: Acute Assessment & Plan: She had renal stent removed yesterday. She is on Levaquin 750mg q 24 hours. Continue to watch lab. (3) Enterovesical fistula Status: Chronic Assessment & Plan: Dr. Sandy following. No intervention at this time. (4) COPD (chronic obstructive pulmonary disease) Status: Chronic Assessment & Plan: She is on chronic treatment with Advair, ipratropium, and albuterol. (5) Hypokalemia Status: Acute Assessment & Plan: Will replace with IV fluids. Watch lab. (6) Anemia Status: Chronic Assessment & Plan: Chronic. Intermittently worse. Will plan on close monitoring and further evaluation if persists/worsens. Central Venous Access Medical Necessity for Access: IV Access, Medication Administration Exam Sepsis Risk: No Definite Risk ASHLEY BLOCK MD Oct 16, 2017 11:25
[2017-10-16] MEDS: LEVOFLOXACIN/D5W 750 MG/150 ML 150 ML IVPB SCH (14:22)
[2017-10-16] MEDS ORDERED: MELATONIN 3 MG TAB PO PRN (17:35)
[2017-10-16] MEDS ORDERED: LIDOCAINE 5% PATCH TP PRN (17:35)
[2017-10-16] MEDS ORDERED: PATCH REMOVAL 1 EA TP SCH (21:00)
[2017-10-17 03:35] VITALS: BP 136/61
[2017-10-17] MEDS: IPRATROPIUM 0.5MG/2.5ML NEB NEB SCH ×3 (05:53→14:13)
[2017-10-17 06:25] LABS: PLATELET COUNT, AUTOMATED 385 K/uL (150-450)
[2017-10-17 06:57] VITALS: BP 125/61
[2017-10-17] MEDS ORDERED: PANTOPRAZOLE SOD 40 MG TABEC PO SCH (09:00)
--- NOTE | 2017-10-17 09:53 | Hospitalist Progress Note ---
Subjective Progress Notes Subjective This patient was admitted for suspected pyelonephritis. She had no acute events overnight. Patient Complains of: Cardiovascular: No: Chest Pain Respiratory: No: Shortness of Breath Physical Exam Vital Signs Date Time Temp Pulse Resp B/P (MAP) Pulse Ox O2 Delivery O2 Flow Rate FiO2 10/17/17 07:46 80 16 10/17/17 07:06 98.4 10/17/17 06:57 125/61 (82) 92 Nasal Cannula 2.0 Intake and Output 10/17/17 06:59 Intake Total 1846 ml Output Total 125 ml Balance 1721 ml Intake Oral 850 ml IV Total 996 ml Output Urine Total 125 ml # Voids 3 # Bowel Movements 1 Cardiovascular: Regular Rate and Rhythm Respiratory: Clear to Auscultation Result Diagram: 10/17/17 0539 10/17/17 0539 Assessment and Plan Problems: (1) Nausea & vomiting Status: Acute Assessment & Plan: Resolved. (2) Pyelonephritis Status: Acute Assessment & Plan: She had renal stent removed on 10/15. She is on Levaquin 750mg q 24 hours, which can likely be converted to oral treatment. Dr. Morales also wants her to start suppressive treatment with Macrobid once her levofloxacin has completed. (3) Enterovesical fistula Status: Chronic Assessment & Plan: Dr. Sandy following. No intervention at this time. (4) COPD (chronic obstructive pulmonary disease) Status: Chronic Assessment & Plan: She is on chronic treatment with Advair, ipratropium, and albuterol. (5) Hypokalemia Status: Acute Assessment & Plan: Resolved. (6) Anemia Status: Chronic Assessment & Plan: She does have a chronic anemia. Her Hgb remains low, but stable. Central Venous Access Medical Necessity for Access: IV Access, Medication Administration Exam Sepsis Risk: No Definite Risk SHANNON MILLER DO Oct 17, 2017 09:53
[2017-10-17] MEDS ORDERED: LEVO750T27 PO (10:46)
--- NOTE | 2017-10-17 10:47 | Hospitalist Depart ---
Discharge Summary Reason for Hosp/Final Diag: (1) Nausea & vomiting Status: Acute Hospital Course & Plan: Resolved. (2) Pyelonephritis Status: Acute Hospital Course & Plan: She had renal stent removed on 10/15. She is on Levaquin 750mg. Dr. Morales also wants her to start suppressive treatment with Macrobid once her levofloxacin has completed. (3) Enterovesical fistula Status: Chronic Hospital Course & Plan: Dr. Sandy following. No intervention at this time. (4) COPD (chronic obstructive pulmonary disease) Status: Chronic Hospital Course & Plan: She is on chronic treatment with Advair, ipratropium, and albuterol. (5) Hypokalemia Status: Acute Hospital Course & Plan: Resolved. (6) Anemia Status: Chronic Hospital Course & Plan: She does have a chronic anemia. Her Hgb remains low, but stable. Departure Latest Vital Signs Vital Signs 10/17/17 10/17/17 10/17/17 06:57 07:06 07:46 Temp 98.4 Pulse 80 Resp 16 B/P (MAP) 125/61 (82) Pulse Ox 92 O2 Delivery Nasal Cannula O2 Flow Rate 2.0 Weight (Pounds): 104 Weight (Ounces): 3.0 Result Diagram: 10/17/17 0539 10/17/17 0539 Condition: Improved Discharge: Home, Home Health PT/OT Follow Up For: PT For Strengthening Home Health RN Follow Up For: Nursing Assessment Home Health EVENT PLANNER Follow Up For: ADL Assistance Discharge Instructions Home Meds Active Scripts Nitrofurantoin Monohyd/M-Cryst (MACROBID 100 MG CAPSULE) 100 Mg Capsule, 100 MG PO QDAY, #30 CAPSULE Start when levofloxacin is finished. Prov:SHANNON MILLER DO 10/17/17 Levofloxacin 750 Mg Tab (LEVOFLOXACIN 750 MG TAB) 750 Mg Tablet, 750 MG PO QDAY, #7 TAB Prov:SHANNON MILLER DO 10/17/17 Reported Medications Oxycodone Hcl/Acetaminophen (OXYCODONE-ACETAMINOPHEN 10-325) 1 Each Tablet, 1 TAB PO PRN for PAIN 10/13/17 Phenazopyridine Hcl (PHENAZOPYRIDINE HCL) 200 Mg Tablet, 200 MG PO TID PRN for BURNING WITH URINATION, #30 TAB 09/28/17 Lisinopril (LISINOPRIL) 20 Mg Tablet, 20 MG PO QDAY, TAB 09/25/17 Pantoprazole Sodium (PANTOPRAZOLE SODIUM) 40 Mg Tablet.dr, 40 MG PO QDAY, #90 TAB.SR 02/19/17 Melatonin (MELATONIN) 3 Mg Tablet, 2 TAB PO QHS 02/17/17 Albuterol Sulfate 0.083% (ALBUTEROL SULFATE 0.083%) 2.5 Mg/3 Ml Vial.neb, 2.5 MG INH QID, INH 02/17/17 Albuterol Sulfate 90 Mcg/Act (PROAIR HFA 90 MCG/ACT) 8.5 Gm Hfa.aer.ad, 2-4 PUFF IH PRN, INHALER 02/17/17 Fluticasone/Salmeterol (ADVAIR 250-50 DISKUS) 1 Each Disk.w.dev, 1 PUFF IH BID 02/17/17 Oxygen (OXYGEN) Inha, 2 L INH cont., L 04/24/15 Ipratropium [place] (IPRATROPIUM BROMIDE) 0.2 Mg/1 Ml Solution, 1 ML IH QID 08/07/14 Ca Carbonate/Vitamin D3/Vit K (VIACTIV SOFT CHEW TABLET) 1 Each Tab.chew, 1 EACH PO DAILY, TAB.CHEW 12/14/13 Tramadol Hcl (TRAMADOL HCL) 50 Mg Tablet, 50-100 MG PO Q6H PRN for PAIN 12/14/13 Cholecalciferol (Vitamin D3) (VITAMIN D) 2,000 Unit Capsule, 2000 UNIT PO DAILY, CAPSULE 12/14/13 Ropinirole Hcl (ROPINIROLE HCL) 0.5 Mg Tablet, 0.5 MG PO BID PRN for SPASMS take 1/2 tab 2-3 times a day as needed for leg cramps 11/21/13 Aspirin (ASPIRIN) 81 Mg Tab.chew, 81 MG PO QDAY, TAB.CHEW TAKE 1 TABLET BY MOUTH EVERY DAY 11/21/13 Ascorbic Acid (VITAMIN C) 250 Mg Tablet, 250 MG PO QDAY 11/21/13 [place]-3 Fatty Acids (FISH OIL) 300 Mg Capsule, 300 MG PO QDAY, CAPSULE 11/21/13 Multivitamin (MULTIPLE VITAMINS) 1 Each Tablet, 1 EACH PO QDAY 11/21/13 Discontinued Reported Medications Levofloxacin 750 Mg Tab (LEVAQUIN 750 MG TAB) 750 Mg Tablet, 750 MG PO QODAY, TAB 10/14/17 Sulfamethoxazole/Trimet 800-160 Mg Tab (BACTRIM DS TABLET) 1 Each Tablet, 1 TAB PO Q12H, #14 TAB 09/28/17 Oxycodone Hcl/Acetaminophen (OXYCODONE-ACETAMINOPHEN 5-325) Unknown Strength Tablet, PO PRN, TAB 02/17/17 Oxybutynin Chloride (DITROPAN XL) 10 Mg Tab.er.24, 10 MG PO QDAY PRN for URGENCY, #10 TAB 09/28/17 Diet: Regular Activity: As Tolerated Copies to: RIDGE MORALES MD ; Venous Thromboembolism Antithrombotics Is Pt On Any Antithrombotics?: No [id number] Certification Face to Face Home Health Certification Institutional Provider conducted the [id number] encounter. Electronic Undersigning Physician Certifies Home Health. I certify that the patient has been under my care and that I had a [id number] encounter that meets the physician [id number] encounter requirements with this patient. This patient is home-bound due to safety issues and continues to require assistance with ADL's. I certify that based on my findings, that Nursing, Aides and the following Home Health services are medically necessary: Medical Necessity: Nursing, Rehab Date Face to Face Conducted: Oct 17, 2017 SHANNON MILLER DO Oct 17, 2017 10:47
[2017-10-17] MEDS ORDERED: NITR-105 PO (10:49)
[2017-10-17 11:37] VITALS: BP 126/77
[2017-10-17] MEDS ORDERED: LEVOFLOXACIN 750 MG TAB PO ONE (14:10)
[2017-10-17] MEDS ORDERED: OXYC-373 PO (15:28)
== END 2017-10-17 10:46 | disposition home health service (06) ==
LOC: OR 00:37 → INTOOBSV 10:00 → MED 10:00
PROVIDERS: ADMIT Urology; ATTEND Urology
DX: N30.00 Acute cystitis without hematuria (principal); I10 Essential (primary) hypertension
CPT/HCPCS: 36415; 52310; 74176; 85025; 94640; 97161; 97166; A9270; G0378; J0131; J1885; J1956; J3010; J3480; J3490; J7030; J7644; 82040; 82247; 82310; 82374; 82435; 82565; 82947; 84075; 84132; 84155; 84295; 84450; 84460; 84520; J3535; Q9967

== ENCOUNTER → 2017-12-16 | Outpatient (CLI) | payer MEDICARE ==
[2017-10-16 10:11] VITALS: BMI 21.7
[~2017-12-16] MED LIST changes: +AMLO-111 PO; -AMLO-96 PO; +LEVO750T27 PO; -LOSA50TA72 PO; +LOSA50TA74 PO; +NITR-105 PO
== END ==
LOC: LAB 16:49
PROVIDERS: ATTEND Urology
DX: N39.0 Urinary tract infection, site not specified (principal); B96.20 Unspecified Escherichia coli [E. coli] as the cause of diseases classified elsewhere
CPT/HCPCS: 81001; 87077; 87088; 87186

== ENCOUNTER 2018-01-12 01:49 | Day surgery (SDC) | payer MEDICARE ==
[2017-10-16 10:11] VITALS: Ht 149.9 cm; Wt 41.7 kg
[~2018-01-12] VITALS: Ht 149.9 cm; Wt 41.7 kg
[2018-01-12] VITALS (10 sets, daily range): BP systolic 83–138; BP diastolic 44–93
[2018-01-12] MEDS ORDERED: PROPOFOL EMUL(*) 10MG/ML 20 ML 40 ML ONE (07:03)
[2018-01-12] MEDS ORDERED: GLYCOPYRROLATE 0.2MG/ML 1 ML INJ IVP ONE (07:15)
[2018-01-12] MEDS ORDERED: NORMOSOL R SOLN(*) 1000 ML BAG 1,000 ML IV PRN (07:25)
[2018-01-12] MEDS ORDERED: LIDOCAINE/SOD BICARB 8.4% SYR ID ONE (07:25)
--- NOTE | 2018-01-12 09:00 | Short(Outpt) Discharge Summary ---
Discharge Summary Reason for Hosp/Final Diag: (1) Nausea & vomiting Status: Chronic Hospital Course & Plan: EGD completed without problems. Departure Discharge to: Home, Self Care Discharge Instructions Home Meds Active Scripts Oxycodone Hcl/Acetaminophen (OXYCODONE-ACETAMINOPHEN 5-325) 1 Each Tablet, 1 TAB PO Q4H PRN for PAIN, #20 TAB Prov:SHANNON MILLER DO 10/17/17 Nitrofurantoin Monohyd/M-Cryst (MACROBID 100 MG CAPSULE) 100 Mg Capsule, 100 MG PO QDAY, #30 CAPSULE Start when levofloxacin is finished. Prov:SHANNON MILLER DO 10/17/17 Reported Medications Phenazopyridine Hcl (PHENAZOPYRIDINE HCL) 200 Mg Tablet, 200 MG PO TID PRN for BURNING WITH URINATION, #30 TAB 09/28/17 Lisinopril (LISINOPRIL) 20 Mg Tablet, 20 MG PO QDAY, TAB 09/25/17 Pantoprazole Sodium (PANTOPRAZOLE SODIUM) 40 Mg Tablet.dr, 40 MG PO QDAY, #90 TAB.SR 02/19/17 Melatonin (MELATONIN) 3 Mg Tablet, 2 TAB PO QHS 02/17/17 Albuterol Sulfate 0.083% (ALBUTEROL SULFATE 0.083%) 2.5 Mg/3 Ml Vial.neb, 2.5 MG INH QID, INH 02/17/17 Albuterol Sulfate 90 Mcg/Act (PROAIR HFA 90 MCG/ACT) 8.5 Gm Hfa.aer.ad, 2-4 PUFF IH PRN, INHALER 02/17/17 Fluticasone/Salmeterol (ADVAIR 250-50 DISKUS) 1 Each Disk.w.dev, 1 PUFF IH BID 02/17/17 Oxygen (OXYGEN) Inha, 2 L INH cont., L 04/24/15 Ipratropium [place] (IPRATROPIUM BROMIDE) 0.2 Mg/1 Ml Solution, 1 ML IH QID 08/07/14 Ca Carbonate/Vitamin D3/Vit K (VIACTIV SOFT CHEW TABLET) 1 Each Tab.chew, 1 EACH PO DAILY, TAB.CHEW 12/14/13 Tramadol Hcl (TRAMADOL HCL) 50 Mg Tablet, 50-100 MG PO Q6H PRN for PAIN 12/14/13 Cholecalciferol (Vitamin D3) (VITAMIN D) 2,000 Unit Capsule, 2000 UNIT PO DAILY, CAPSULE 12/14/13 Ropinirole Hcl (ROPINIROLE HCL) 0.5 Mg Tablet, 0.5 MG PO BID PRN for SPASMS take 1/2 tab 2-3 times a day as needed for leg cramps 11/21/13 Aspirin (ASPIRIN) 81 Mg Tab.chew, 81 MG PO QDAY, TAB.CHEW TAKE 1 TABLET BY MOUTH EVERY DAY 11/21/13 Ascorbic Acid (VITAMIN C) 250 Mg Tablet, 250 MG PO QDAY 11/21/13 [place]-3 Fatty Acids (FISH OIL) 300 Mg Capsule, 300 MG PO QDAY, CAPSULE 11/21/13 Diet: Regular Activity: As Tolerated Special Instructions: My office will call you in the next day or two to schedule a follow up appointment with me to discuss these results and determine the next course of action. Problem Qualifiers (1) Nausea & vomiting: Vomiting type: unspecified Vomiting Intractability: unspecified Qualified Codes: R11.2 - Nausea with vomiting, unspecified SHANNON REECE MD Jan 12, 2018 09:00
== END 2018-01-12 10:25 | disposition home health service (06) ==
LOC: OR 01:49
PROVIDERS: ATTEND Surgery
DX: K57.10 Diverticulosis of small intestine without perforation or abscess without bleeding (principal); K44.9 Diaphragmatic hernia without obstruction or gangrene
CPT/HCPCS: 36415; 43235; 83516; J2704; J3490

== ENCOUNTER 2018-02-15 19:20 | Inpatient (IN) | payer MEDICARE ==
[~2018-02-15] VITALS: Ht 157.5 cm; Wt 41.3 kg
[~2018-02-15 19:20] MED LIST changes: +AMLO-111 PO; -AMLO-125 PO; +FERR15DR3 PO; -FERR15DR4 PO; -ROPI0.5T24 PO
--- NOTE | 2018-02-15 19:38 | ER Report ---
History and Physical Time Seen By MD: 19:35 HPI/ROS CHIEF COMPLAINT: elevated potassium HISTORY OF PRESENT ILLNESS: This is a 77 year old female. She had labs done today. She had an enterovessicular fistula, currently on bowel rest with small s ips of water throughout the day and TPN through her PICC line. She had labs drawn, no symptoms. Labs showed acute renal failure and hyperkalemia. Was called with results and told to come to the hospital. No cough or shortness of breath. Urination has not been abnormal with the fistula, but no current changes. No chest pain or palpitations. Is having some muscle cramps in her hands and legs/feet as well. Allergies: Coded Allergies: banana (Verified Allergy, Severe, ITCHING EYES, EARS, THROAT AND BODY, 02/15/18) honey (Verified Allergy, Severe, ITCHING ALL OVER, 02/15/18) iodine (Verified Allergy, Severe, HIVES AND ITCHING ALL OVER, DIZZINES, 02/15/18) morphine (Verified Allergy, Severe, BACK ACHES, 02/15/18) Qqwflxl-Dvl-[place] Reductase Inhibitor (Verified Allergy, Intermediate, MUSCLE CRAMPING, 02/15/18) milk (Verified Allergy, Intermediate, BLOATING REALLY BAD, 02/15/18) latex (Verified Allergy, Mild, BECAUSE SHE ITCHES IN HER EARS WITH BANANAS, 02/15/18) strawberry (Verified Allergy, Mild, ITCHING, 02/15/18) hydromorphone (Verified Adverse Reaction, Unknown, 02/15/18) causes generalized itching Uncoded Allergies: IODINE SALT (Allergy, Severe, ITCHING ALL OVER, 08/07/14) Home Meds Active Scripts Oxycodone Hcl/Acetaminophen (OXYCODONE-ACETAMINOPHEN 5-325) 1 Each Tablet, 1 TAB PO Q4H PRN for PAIN, #20 TAB Prov:SHANNON MILLER DO 10/17/17 Nitrofurantoin Monohyd/M-Cryst (MACROBID 100 MG CAPSULE) 100 Mg Capsule, 100 MG PO QDAY, #30 CAPSULE Start when levofloxacin is finished. Prov:SHANNON MILLER DO 10/17/17 Reported Medications Phenazopyridine Hcl (PHENAZOPYRIDINE HCL) 200 Mg Tablet, 200 MG PO TID PRN for BURNING WITH URINATION, #30 TAB 09/28/17 Lisinopril (LISINOPRIL) 20 Mg Tablet, 20 MG PO QDAY, TAB 09/25/17 Pantoprazole Sodium (PANTOPRAZOLE SODIUM) 40 Mg Tablet.dr, 40 MG PO QDAY, #90 TAB.SR 02/19/17 Melatonin (MELATONIN) 3 Mg Tablet, 2 TAB PO QHS 02/17/17 Albuterol Sulfate 0.083% (ALBUTEROL SULFATE 0.083%) 2.5 Mg/3 Ml Vial.neb, 2.5 MG INH QID, INH 02/17/17 Albuterol Sulfate 90 Mcg/Act (PROAIR HFA 90 MCG/ACT) 8.5 Gm Hfa.aer.ad, 2-4 PUFF IH PRN, INHALER 02/17/17 Fluticasone/Salmeterol (ADVAIR 250-50 DISKUS) 1 Each Disk.w.dev, 1 PUFF IH BID 02/17/17 Oxygen (OXYGEN) Inha, 2 L INH cont., L 04/24/15 Ipratropium [place] (IPRATROPIUM BROMIDE) 0.2 Mg/1 Ml Solution, 1 ML IH QID 08/07/14 Ca Carbonate/Vitamin D3/Vit K (VIACTIV SOFT CHEW TABLET) 1 Each Tab.chew, 1 EACH PO DAILY, TAB.CHEW 12/14/13 Tramadol Hcl (TRAMADOL HCL) 50 Mg Tablet, 50-100 MG PO Q6H PRN for PAIN 12/14/13 Cholecalciferol (Vitamin D3) (VITAMIN D) 2,000 Unit Capsule, 2000 UNIT PO DAILY, CAPSULE 12/14/13 Ropinirole Hcl (ROPINIROLE HCL) 0.5 Mg Tablet, 0.5 MG PO BID PRN for SPASMS take 1/2 tab 2-3 times a day as needed for leg cramps 11/21/13 Aspirin (ASPIRIN) 81 Mg Tab.chew, 81 MG PO QDAY, TAB.CHEW TAKE 1 TABLET BY MOUTH EVERY DAY 11/21/13 Ascorbic Acid (VITAMIN C) 250 Mg Tablet, 250 MG PO QDAY 11/21/13 [place]-3 Fatty Acids (FISH OIL) 300 Mg Capsule, 300 MG PO QDAY, CAPSULE 11/21/13 Reviewed Nurses Notes: Yes Hx Smoking: Yes (SMOKED FOR 50 YEARS, 1 PPD quit 2009) Smoking Status: Former Smoker Exposure to Second Hand Smoke?: No Hx Substance Use Disorder: No Hx Alcohol Use: Yes ("not for a long time.") Constitutional Vital Sign - Last 24 Hours 02/15/18 02/15/18 02/15/18 02/15/18 19:20 19:30 19:32 19:32 Temp 98.3 Pulse ? 118 Resp 18 B/P (MAP) 104/93 104/93 (97) Pulse Ox 92 O2 Delivery Nasal Cannula 02/15/18 02/15/18 02/15/18 02/15/18 19:40 19:45 19:50 20:00 Pulse 112 106 107 Resp 18 14 11 B/P (MAP) 115/65 (82) 108/60 (76) Pulse Ox 97 98 98 02/15/18 02/15/18 02/15/18 02/15/18 20:10 20:10 20:10 20:13 Pulse 114 100 97 Resp 18 16 16 Pulse Ox 96 96 O2 Delivery Nasal Cannula O2 Flow Rate 3.0 02/15/18 02/15/18 02/15/18 02/15/18 20:15 20:20 20:30 20:40 Pulse 103 101 99 Resp 15 17 14 B/P (MAP) 113/53 (73) 104/56 (72) Pulse Ox 88 99 97 02/15/18 02/15/18 02/15/18 02/15/18 20:45 21:00 21:15 21:20 Pulse 99 94 96 102 Resp 16 13 16 14 B/P (MAP) 91/58 (69) 77/60 (66) 105/50 (68) Pulse Ox 96 99 99 97 02/15/18 02/15/18 02/15/18 02/15/18 21:30 21:35 21:45 21:50 Pulse 92 95 Resp 18 14 B/P (MAP) 116/53 (74) 108/83 (91) Pulse Ox 100 96 02/15/18 02/15/18 02/15/18 02/15/18 22:00 22:05 22:15 22:20 Pulse 97 97 Resp 9 18 B/P (MAP) 104/56 (72) 93/76 (82) Pulse Ox 97 94 12/31/18 12/31/18 12/31/18 12/31/18 22:30 22:35 22:45 22:50 Pulse 92 102 Resp 12 15 B/P (MAP) 96/64 (75) 110/52 (71) Pulse Ox 98 100 02/15/18 23:00 B/P (MAP) 147/89 (108) Intake and Output 02/15/18 02/15/18 02/16/18 15:00 23:00 07:00 Intake Total 1000 ml 500 ml Balance 1000 ml 500 ml Physical Exam General Appearance: The patient is alert. No acute distress. Eyes: Pupils are equal, round. No pallor, injection or icterus. ENT: Mucous membranes are moist. Normal oral mucosa. Posterior oropharynx is normal. Respiratory: Lungs are clear to auscultation. Cardiovascular: Regular rate and rhythm. No murmurs, gallops or rubs. No edema. Gastrointestinal: Abdomen is soft and non tender. Nondistended. Normal active bowel sounds. Neurological: Alert and oriented x3. No focal neurologic deficits Skin: Warm and dry. Musculoskeletal: Extremities are nontender. DIFFERENTIAL DIAGNOSIS: After history and physical exam, differential diagnosis was considered for acute renal failure and hyperkalemia. Medical Decision Making Data Points Result Diagram: 02/15/18 9190 Laboratory Hematology Test 02/15/18 20:30 02/15/18 23:35 Urine Color Nadine Urine Clarity Cloudy Urine pH 5.0 pH (4.8-9.5) Urine Specific [place] 1.010 Urine Protein Negative mg/dL (NEGATIVE) Urine Glucose (UA) Negative mg/dL (NEGATIVE) Urine Ketones Negative mg/dL (NEGATIVE) Urine Blood Small (NEGATIVE) Urine Nitrite Positive (NEGATIVE) Urine Bilirubin Negative (NEGATIVE) Urine Urobilinogen Negative mg/dL (0.2-1.9) Urine Leukocyte Esterase Moderate (NEGATIVE) Urine RBC 2 /HPF (0-2/HPF) Urine WBC 17 /HPF (0-5/HPF) Urine WBC Clumps Few /HPF Urine Squamous Epithelial Cells Few /LPF (NONE-FEW) Urine Bacteria Many /HPF (NONE-FEW) Urine Mucus None /HPF (NONE-FEW) Lactate 0.9 mmol/L (0.7-2.1) Sodium Level 137 mmol/L (137-145) Potassium Level 5.3 mmol/L (3.5-5.0) Chloride Level 115 mmol/L (98-107) Carbon Dioxide Level 14 mmol/L (22-31) Blood Urea Nitrogen 63 mg/dl (7-18) Creatinine 1.80 mg/dl (0.52-1.04) Glomerular Filtration Rate Calc 27.3 Random Glucose 67 mg/dl (75-110) Calcium Level 9.7 mg/dl (8.4-10.2) Total Bilirubin 0.2 mg/dl (0.2-1.3) Aspartate Amino Transf (AST/SGOT) 46 U/L (0-35) Alanine Aminotransferase (ALT/SGPT) 47 U/L (0-56) Alkaline Phosphatase 111 U/L (0-126) Total Protein 6.4 g/dl (6.3-8.2) Albumin 3.1 g/dl (3.5-5.0) Chemistry Test 02/15/18 20:30 02/15/18 23:35 Urine Color Nadine Urine Clarity Cloudy Urine pH 5.0 pH (4.8-9.5) Urine Specific [place] 1.010 Urine Protein Negative mg/dL (NEGATIVE) Urine Glucose (UA) Negative mg/dL (NEGATIVE) Urine Ketones Negative mg/dL (NEGATIVE) Urine Blood Small (NEGATIVE) Urine Nitrite Positive (NEGATIVE) Urine Bilirubin Negative (NEGATIVE) Urine Urobilinogen Negative mg/dL (0.2-1.9) Urine Leukocyte Esterase Moderate (NEGATIVE) Urine RBC 2 /HPF (0-2/HPF) Urine WBC 17 /HPF (0-5/HPF) Urine WBC Clumps Few /HPF Urine Squamous Epithelial Cells Few /LPF (NONE-FEW) Urine Bacteria Many /HPF (NONE-FEW) Urine Mucus None /HPF (NONE-FEW) Lactate 0.9 mmol/L (0.7-2.1) Glomerular Filtration Rate Calc 27.3 Calcium Level 9.7 mg/dl (8.4-10.2) Total Bilirubin 0.2 mg/dl (0.2-1.3) Aspartate Amino Transf (AST/SGOT) 46 U/L (0-35) Alanine Aminotransferase (ALT/SGPT) 47 U/L (0-56) Alkaline Phosphatase 111 U/L (0-126) Total Protein 6.4 g/dl (6.3-8.2) Albumin 3.1 g/dl (3.5-5.0) Urinalysis Test 02/15/18 20:30 Urine Color Nadine Urine Clarity Cloudy Urine pH 5.0 pH (4.8-9.5) Urine Specific [place] 1.010 Urine Protein Negative mg/dL (NEGATIVE) Urine Glucose (UA) Negative mg/dL (NEGATIVE) Urine Ketones Negative mg/dL (NEGATIVE) Urine Blood Small (NEGATIVE) Urine Nitrite Positive (NEGATIVE) Urine Bilirubin Negative (NEGATIVE) Urine Urobilinogen Negative mg/dL (0.2-1.9) Urine Leukocyte Esterase Moderate (NEGATIVE) Urine RBC 2 /HPF (0-2/HPF) Urine WBC 17 /HPF (0-5/HPF) Urine WBC Clumps Few /HPF Urine Squamous Epithelial Cells Few /LPF (NONE-FEW) Urine Bacteria Many /HPF (NONE-FEW) Urine Mucus None /HPF (NONE-FEW) EKG/Imaging EKG Interpretation 12 lead EKG: Rhythm: Sinus tachycardia, rate 109 [place]: normal QRS: normal ST segments: Nonspecific ED Course/Re-evaluation Clinical Indication for ER IV: Hydration, IV Access ED Course The patient had repeat labs which demonstrated that the earlier labs were accurate. Gave Calcium Gluconate. No EKG changes noted. Given a liter of normal saline. Then 500cc D5 with 10units of Insulin given over 60 minutes. Repeat labs improved. Admitted to medical after discussion with Dr. Garland. Also discussed earlier with Dr. Sandy as well. Decision to Disposition Date: Feb 15, 2018 Decision to Disposition Time: 23:50 Depart Departure Latest Vital Signs Vital Signs Date Time Temp Pulse Resp B/P (MAP) Pulse Ox O2 Delivery O2 Flow Rate FiO2 02/15/18 23:00 147/89 (108) 02/15/18 22:50 102 15 100 02/15/18 20:10 Nasal Cannula 3.0 02/15/18 19:32 98.3 Impression: Primary Impression: GALINA (acute kidney injury) Additional Impression: Hyperkalemia Condition: Improved Disposition: Admitted from ER Referrals: EUN ARCHULETA DO (PCP) Problem Qualifiers QUANG LOYOLA MD Feb 15, 2018 19:38
[2018-02-15] MEDS ORDERED: ALBUTEROL 2.5 MG/3 ML NEB NEB ONE (19:50)
[2018-02-15] MEDS ORDERED: INS HUM REG U IV ONE (19:50)
[2018-02-15] MEDS ORDERED: CALCIUM GLUC 100 MG/ML 50 ML SDV IVP ONE (19:50)
[2018-02-15] MEDS ORDERED: D5W IV ONE (19:50)
[2018-02-15] MEDS ORDERED: NS(*) 0.9% 1000 ML BAG 1,000 ML IV ONE (20:00)
[2018-02-15] MEDS ORDERED: CALCIUM GLUC 10% 100 MG/ML VL IVP ONE (20:05)
--- NOTE | 2018-02-15 20:52 | EKG ---
FACILITY: [facility] - [place] PATIENT NAME: CARL RUSSO : [id number] MR: [id number] V: [id number] EXAM DATE: ORDERING PHYSICIAN: QUANG LOYOLA TECHNOLOGIST: MIKE Quezada Reason : CARDIAC Blood Pressure : / mmHG Vent. Rate : 109 BPM Atrial Rate : 109 BPM P-R Int : 134 ms QRS Dur : 074 ms QT Int : 288 ms P-R-T Axes : 075 067 075 degrees QTc Int : 387 ms Sinus tachycardia Poor R wave progression anteriorly Abnormal ECG Confirmed by MALLORY TOLBERT ([id number]) on 02/16/2018 6:35:50 AM Referred By: Confirmed By:MALLORY TOLBERT
[2018-02-16] MEDS ORDERED: NS(*) 0.9% 1000 ML BAG 1,000 ML IV PRN (01:20)
[2018-02-16] MEDS ORDERED: INFLUENZA VIRUS VAC 0.5ML SYR IM ONLY ONE (01:20)
[2018-02-16 01:21] VITALS: BP 98/39
[2018-02-16] MEDS ORDERED: DEXTROSE 50% 50 ML SYR ONE (01:37)
[2018-02-16] MEDS ORDERED: DLR(*) 1000 ML BAG 1,000 ML IV ONE (01:40)
[2018-02-16] MEDS ORDERED: ROPI0.5T24 PO (02:05)
[2018-02-16] MEDS ORDERED: GABA-549 PO (02:05)
[2018-02-16] MEDS: ACETAMINOPHEN(*)1000 MG/100 ML 100 ML IVPB PRN ×2 (02:44→08:50)
[2018-02-16] MEDS: D5 1/2 NS(*) 1000 ML BAG 1,000 ML IV PRN ×2 (02:44→14:10)
[2018-02-16 03:03] VITALS: BP 95/41
--- NOTE | 2018-02-16 03:03 | History & Physical ---
History of Present Illness Chief Complaint Hyperkalemia. History of Present Illness The patient is a 77 year old female with PMH significant for enterovesical fistula, recurrent UTIs and COPD who was instructed to be seen in the ER after blood work drawn earlier today in Dr. Sandy's office showed a potassium level of 6.7. The patient recently had a PICC line placed and was started on TPN by Dr. Sandy in an attempt to resolve her fistula with bowel rest. In the ER, the patient was noted to have a potassium on recheck of greater than 6. She was given insulin/calcium/D50 to lower her potassium. Her TPN was stopped. She was given NS as well. The patient has been taking lisinopril for HTN. Upon arrival to the medical floor, the patient was unresponsive and clammy. She was found to have a blood sugar of 40mg/dL. She was given an amp of D50 and started on D5. Shortly after pushing D50, the patient woke up and was able to give a history and clarify her current medications. The patient states that she is on bowel rest and has been taking only sips of water at home. She has been taking her oral meds with sips of water as well. She notes she has not been feeling well. She has had pain in her arms and legs. She was recently started on gabapentin for this. She has continued to lose weight as well. She is currently 88 pounds per her report. 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 (2) Unintentional weight loss Status: Chronic (3) Enterovesical fistula Status: Chronic (4) Sciatica Status: Chronic (5) RLS (restless legs syndrome) Status: Chronic (6) HTN (hypertension) Status: Chronic (7) COPD (chronic obstructive pulmonary disease) Status: Chronic (8) Diverticulitis with perforation Status: Resolved Home Meds Active Scripts Oxycodone Hcl/Acetaminophen (OXYCODONE-ACETAMINOPHEN 5-325) 1 Each Tablet, 1 TAB PO Q4H PRN for PAIN, #20 TAB Prov:SHANNON MILLER DO 10/17/17 Reported Medications Gabapentin (GABAPENTIN) 300 Mg Capsule, 300 MG PO BID 02/16/18 Phenazopyridine Hcl (PHENAZOPYRIDINE HCL) 200 Mg Tablet, 200 MG PO TID PRN for BURNING WITH URINATION, #30 TAB 09/28/17 Lisinopril (LISINOPRIL) 20 Mg Tablet, 20 MG PO QDAY, TAB 09/25/17 Pantoprazole Sodium (PANTOPRAZOLE SODIUM) 40 Mg Tablet.dr, 40 MG PO QDAY, #90 TAB.SR 02/19/17 Melatonin (MELATONIN) 3 Mg Tablet, 2 TAB PO QHS 02/17/17 Albuterol Sulfate 0.083% (ALBUTEROL SULFATE 0.083%) 2.5 Mg/3 Ml Vial.neb, 2.5 MG INH QID, INH 02/17/17 Albuterol Sulfate 90 Mcg/Act (PROAIR HFA 90 MCG/ACT) 8.5 Gm Hfa.aer.ad, 2-4 PUFF IH PRN, INHALER 02/17/17 Oxygen (OXYGEN) Inha, 2.5 L INH cont., L 04/24/15 Ca Carbonate/Vitamin D3/Vit K (VIACTIV SOFT CHEW TABLET) 1 Each Tab.chew, 1 EACH PO DAILY, TAB.CHEW 12/14/13 Tramadol Hcl (TRAMADOL HCL) 50 Mg Tablet, 50-100 MG PO Q6H PRN for PAIN 12/14/13 Cholecalciferol (Vitamin D3) (VITAMIN D) 2,000 Unit Capsule, 2000 UNIT PO DAILY, CAPSULE 12/14/13 Ropinirole Hcl (ROPINIROLE HCL) 0.5 Mg Tablet, 0.5 MG PO BID PRN for SPASMS take 1/2 tab 2-3 times a day as needed for leg cramps 11/21/13 Aspirin (ASPIRIN) 81 Mg Tab.chew, 81 MG PO QDAY, TAB.CHEW TAKE 1 TABLET BY MOUTH EVERY DAY 11/21/13 Ascorbic Acid (VITAMIN C) 250 Mg Tablet, 250 MG PO QDAY 11/21/13 [place]-3 Fatty Acids (FISH OIL) 300 Mg Capsule, 300 MG PO QDAY, CAPSULE 11/21/13 Discontinued Reported Medications Ropinirole Hcl (REQUIP) 0.5 Mg Tablet, 0.5 MG PO BID PRN for leg cramps 02/16/18 Fluticasone/Salmeterol (ADVAIR 250-50 DISKUS) 1 Each Disk.w.dev, 1 PUFF IH BID 02/17/17 Ipratropium [place] (IPRATROPIUM BROMIDE) 0.2 Mg/1 Ml Solution, 1 ML IH QID 08/07/14 Discontinued Scripts Nitrofurantoin Monohyd/M-Cryst (MACROBID 100 MG CAPSULE) 100 Mg Capsule, 100 MG PO QDAY, #30 CAPSULE Start when levofloxacin is finished. Prov:SHANNON MILLER DO 10/17/17 Allergies: Coded Allergies: banana (Verified Allergy, Severe, ITCHING EYES, EARS, THROAT AND BODY, 02/15/18) honey (Verified Allergy, Severe, ITCHING ALL OVER, 02/15/18) iodine (Verified Allergy, Severe, HIVES AND ITCHING ALL OVER, DIZZINES, 02/15/18) morphine (Verified Allergy, Severe, BACK ACHES, 02/15/18) Xvvtvhx-Fvy-Xbg Reductase Inhibitor (Verified Allergy, Intermediate, MUSCLE CRAMPING, 02/15/18) milk (Verified Allergy, Intermediate, BLOATING REALLY BAD, 02/15/18) latex (Verified Allergy, Mild, BECAUSE SHE ITCHES IN HER EARS WITH B ANANAS, 02/15/18) strawberry (Verified Allergy, Mild, ITCHING, 02/15/18) hydromorphone (Verified Adverse Reaction, Unknown, 02/15/18) causes generalized itching Uncoded Allergies: IODINE SALT (Allergy, Severe, ITCHING ALL OVER, 08/07/14) Patient History: FH: dementia MOTHER, Onset:60 years & older ( AT AGE 92 ) FH: diabetic complications CHILD FH: liver cancer BROTHER OR SISTER, Onset:60 years & older FH: stroke CHILD, Onset:51 CHILD Other Social/Family Hx The patient is and lives in [place] with her . She is retired. Hx Smoking: Yes (SMOKED FOR 50 YEARS, 1 PPD quit 2009) Smoking Status: Former Smoker Exposure to Second Hand Smoke?: No Caffeine Intake: Coffee Caffeine/Cups Per Day: very occ Hx Alcohol Use: Yes ("not for a long time.") Hx Substance Use Disorder: No Social Drug Use: Never History of IV Drug Use: No Review of Systems All Systems Reviewed/Normal: Yes, Except as Noted Constitutional: Weight Loss (Unintentional.) Neurological: Weakness Cardiovascular: No Chest Pain Respiratory: No Shortness of Breath Gastrointestinal: Nausea, Vomiting Genitourinary: Dysuria Musculoskeletal: Pain (Diffuse pain in arms and legs.) Exam Vital Signs Vital Signs Date Time Temp Pulse Resp B/P (MAP) Pulse Ox O2 Delivery O2 Flow Rate FiO2 02/16/18 01:21 97.5 88 14 98/39 (58) 94 Nasal Cannula 3.0 General Appearance: Awake (After receiving D50. ), No Acute Distress Neuro: Other (Sleepy.) ENT: Other (Mucous membranes dry.) Cardiovascular: Other (Slightly tachy, regular. Hyperdynamic.) Respiratory: No Respiratory Distress, Clear to Auscultation GI: Abd Soft and Non-Tender, Other (Colostomy present in the R abdomen.) Lymph: Cervical Nodes Benign Extremities: Warm, Perfused, Other (No edema.) Integumentary: Other (SKin is clammy. Pressure wound over L sacrum partial skin thickness.) Psych: Appropriate Mood & Affect Medical Decision Making Data Points Result Diagram: 02/15/18 2335 Item Value Date Time Urine Color Nadine 02/15/182029 Urine Clarity Cloudy 02/15/182029 Urine pH 5.0 pH 02/15/182029 Urine Specific [place] 1.010 02/15/182029 Urine Protein Negative mg/dL 02/15/182029 Urine Glucose (UA) Negative mg/dL 02/15/182029 Urine Ketones Negative mg/dL 02/15/182029 Urine Blood Small 02/15/182029 Urine Nitrite Positive H 02/15/182029 Urine Bilirubin Negative 02/15/182029 Urine Urobilinogen Negative mg/dL 02/15/182029 Urine Leukocyte Esterase Moderate H 02/15/182029 Urine RBC 2 /HPF 02/15/182029 Urine WBC 17 /HPF 02/15/182029 Urine WBC Clumps Few /HPF 02/15/182029 Urine Squamous Epithelial Cells Few /LPF 02/15/182029 Urine Bacteria Many /HPF H 02/15/182029 Urine Mucus None /HPF 02/15/182029 Sodium Level 137 mmol/L 02/15/182029 Potassium Level 6.7 mmol/L *H 02/15/182029 Chloride Level 113 mmol/L H 02/15/182029 Carbon Dioxide Level 14 mmol/L *L 02/15/182029 Blood Urea Nitrogen 71 mg/dl H 02/15/182029 Creatinine 2.00 mg/dl H 02/15/182029 Glomerular Filtration Rate Calc 24.2 02/15/182029 Random Glucose 93 mg/dl 02/15/182029 Calcium Level 11.1 mg/dl H 02/15/182029 Lactate 0.9 mmol/L 02/15/182029 Calcium Level 9.7 mg/dl 02/15/182334 Total Bilirubin 0.2 mg/dl 02/15/182334 Aspartate Amino Transf (AST/SGOT) 46 U/L H 02/15/182334 Alanine Aminotransferase (ALT/SGPT) 47 U/L 02/15/182334 Alkaline Phosphatase 111 U/L 02/15/182334 Total Protein 6.4 g/dl 02/15/182334 Albumin 3.1 g/dl L 02/15/182334 Whole Blood Glucose 43 mg/DL *L 02/16/18 013 Urine culture pending. EKG / Imaging EKG Interpretation FACILITY: [facility] PATIENT NAME: CARL RUSSO : [id number] MR: [id number] V: [id number] EXAM DATE: ORDERING PHYSICIAN: QUANG LOYOLA TECHNOLOGIST: MIKE Test Reason : CARDIAC Blood Pressure : / mmHG Vent. Rate : 109 BPM Atrial Rate : 109 BPM P-R Int : 134 ms QRS Dur : 074 ms QT Int : 288 ms P-R-T Axes : 075 067 075 degrees QTc Int : 387 ms Sinus tachycardia Possible Anterolateral infarct , age undetermined Abnormal ECG When compared with ECG of 04-MAY-2014 07:45, Borderline criteria for Anterolateral infarct are now present Nonspecific T wave abnormality no longer evident in Inferior leads Nonspecific T wave abnormality, improved in Anterolateral leads Referred By: Confirmed By: 34 T: / Pre-Admit Course ED Medications Amp D50, NS, insulin, calcium. Medical Record Review: Yes Assessment and Plan Problems: (1) Hyperkalemia Status: Acute Assessment & Plan: After treatment in the ER, the patient's potassium dropped to 5.3. Will continue IV fluids overnight and recheck labs in am. Hold lisinopril. (2) GALINA (acute kidney injury) Status: Acute Assessment & Plan: The patient will need to have her TPN adjusted as she appears to be dry currently. Will hydrate overnight. Hold lisinopril. Recheck B MP in am. (3) Enterovesical fistula Status: Chronic Assessment & Plan: Dr. Sandy is managing. He currently has the patient on bowel rest and TPN. (4) COPD (chronic obstructive pulmonary disease) Status: Chronic Assessment & Plan: Continue albuterol and ipratropium nebulizers. (5) Pyuria Status: Chronic Assessment & Plan: Urine culture pending. (6) HTN (hypertension) Status: Chronic Assessment & Plan: The patient is currently mildly hypotensive with systolic readings in the 90s. Will hold lisinopril and hydrate. (7) RLS (restless legs syndrome) Status: Chronic Assessment & Plan: Continue ropinirole prn. (8) Anemia Status: Chronic Assessment & Plan: Chronic. Likely nutritional and also related to her chronic disease. (9) Chronic pain Status: Chronic Assessment & Plan: In arms and legs. On gabapentin 300mg bid. Will hold for no w. Also takes Percocet and tramadol rarely prn. (10) Pressure ulcer Status: Acute Assessment & Plan: Partial skin thickness, L sacrum. Will have PT wound care assess and give recommendations. Central Venous Access Medical Necessity for Access: IV Access, Medication Administration Time Spent on Plan of Care: < 30 min Venous Thromboembolism Antithrombotics Is Pt On Any Antithrombotics?: Yes Exam Sepsis Risk: No Definite Risk MALLORY BLOCK MD Feb 16, 2018 03:03
[2018-02-16 07:40] VITALS: BP 104/59
[2018-02-16] MEDS ORDERED: ENOXAPARIN 40 MG/0.4ML SYR SC SCH (09:00)
--- NOTE | 2018-02-16 09:13 | NUR ---
Physical Therapy Impression PT wound eval complete. Wound present directly over bony prominence of the L) sacral region. Wound classified as unstageable at this time as it is unclear what the depth of the wound is d/t slough obscuring base of wound. Pt is very tender with all palpation and therefore no sharps debridement was tolerated at this time. Base of woound measures 0.4 cm L x 0.4 cm W x 0.1 cm D. PT cleansed the wound with sterile saline and gauze and placed collagen with silver in the wound base followed by a silicone bordered dressing. Pt instructed in the importance of aggressive offloading. Physical Therapy Goals 1: Pt to complete bed mobility with Rich 2: Pt to complete transfers with Rich and least restrictive AD 3: Pt to ambulate 30' with SBA and least restrictive AD. Patient's Goals
--- NOTE | 2018-02-16 10:04 | Hospitalist Progress Note ---
Subjective Progress Notes Subjective This patient was admitted for hyperkalemia. She developed hypoglycemia overnight, but it resolved with D50. Patient Complains of: Cardiovascular: No: Chest Pain Respiratory: No: Shortness of Breath Physical Exam Vital Signs Date Time Temp Pulse Resp B/P (MAP) Pulse Ox O2 Delivery O2 Flow Rate FiO2 02/16/18 09:20 96 Nasal Cannula 3.0 02/16/18 07:40 97.6 80 20 104/59 (74) Intake and Output 02/16/18 07:00 Intake Total 1500 ml Balance 1500 ml Intake IV Total 1500 ml # Voids 1 Cardiovascular: Regular Rate and Rhythm Respiratory: Clear to Auscultation Result Diagram: 02/16/18 0735 Assessment and Plan Problems: (1) Hyperkalemia Status: Acute Assessment & Plan: She received IV insulin and D50, which lower her levels initially, but they have gone up slightly again. Her lisinopril has been discontinued. A repeat level is ordered for later today. (2) GALINA (acute kidney injury) Status: Acute Assessment & Plan: She is receiving IV fluids. Her renal function is slightly improved. (3) Enterovesical fistula Status: Chronic Assessment & Plan: She is being managed by Dr. Sandy. She is currently on bowel rest and receiving TPN. We will call her home health to find out what she is receiving at home. (4) COPD (chronic obstructive pulmonary disease) Status: Chronic Assessment & Plan: She is on chronic treatment with albuterol. (5) Pyuria Status: Chronic Assessment & Plan: She does have chronic pyuria and had stents placed several months ago. Previous records also indicate that she was to be on chronic suppressive therapy, but no antibiotics on in her profile. We have ordered a CT scan to be sure that her abrupt renal failure is not secondary to pyelonephritis. She is followed by Dr. Morales. A urine culture is pending. (6) HTN (hypertension) Status: Chronic Assessment & Plan: She is on chronic treatment with lisinopril, which has been discontinued secondary to hyperkalemia. Her blood pressures are low without medication. (7) RLS (restless legs syndrome) Status: Chronic Assessment & Plan: She is on chronic treatment with ropinirole, which is currently on hold. (8) Anemia Status: Chronic Assessment & Plan: She does have a chronic anemia, but her counts are currently higher than they have been in the past. (9) Chronic pain Status: Chronic Assessment & Plan: She is on chronic treatment with gabapentin and Percocet. The gabapentin is currently on hold. (10) Pressure ulcer Status: Acute Assessment & Plan: Partial skin thickness, L sacrum. The wound team has been consulted. Central Venous Access Medical Necessity for Access: IV Access, Medication Administration Exam Sepsis Risk: No Definite Risk Problem Qualifiers (1) HTN (hypertension): Hypertension type: essential hypertension Qualified Codes: I10 - Essential (primary) hypertension SHANNON MILLER DO Feb 16, 2018 10:04
[2018-02-16 10:31] VITALS: Ht 157.5 cm; Wt 41.3 kg
--- NOTE | 2018-02-16 10:46 | Medical Nutrition Therapy ---
Nutrition Anthropometrics Height (Inches): 62.00 Height (Calculated Centimeters: 157.606216 Weight (Pounds): 91 Weight (Calculated Kilograms): 41.362 BMI: 16.6 [place] Nutrition Score: Very Poor [place] Nutrition Risk Score: 12 Dietary Referral Nutrition Risk Factors: Unplanned Loss >10lbs Nutrition Risk Comment: Physical Findings Physical Appearance: Overweight BMI 25-29 Skin Appearance Skin Appearance: Edema Edema Location Modifier: Edema Location: Type of Edema: Degree of Edema: Gastrointestinal Symptoms GI Symtoms: Tube Present: Bowel Sounds: Recent Bowel Pattern: Stool Characteristics: Nutrition/Food History Decreased Appetite, TPN/PPN Prior to Admit Nutritional Diagnosis Nutritional Risk Acuity 1: Acute/ES Renal Nutritional Risk Acuity 3: %IBW 81-89% Past Medical History: Hx of UTI, diverticulitis, ischemic necrosis of small bowel, enterovesical fistula, and multiple ab surgeries. Nutritional Acuity: 1-High Nutrition Diagnosis: Inadequate Food Intake Nutrition Etiology: Physiological Causes Nutrition Problem/Etiology/Sym: Inadequate Oral Intake related to decreased ability to consume sufficient energy, e.g. no appetite AEB reports of insufficient intake of energy from diet when compared to requirements. Energy Requirement: 1600 ([place]-St Jeor: IBW BW X 1.7) Protein Requirement: 60 (IBW Kg X 1.2) Fluid Requirement: 1600 Diet Type: NPO (Nothing by Mouth) Nutrition Intervention: Incr diet as tolerated Food Likes: SOY MILK, Please offer! We do have it Additional Diet Restrictions: ALLERGY- iodine salt, bananas, honey, milk, and strawberries Diet Comment To RSA: Enjoys soy milk. Pt does not have lower teeth, recommend softer foods. Nutrition Monitoring & Eval Nutrition Goals: Eat 50-100% Meal RD Patient Assessment Time: [address] Assessment Type: RD Assessment Patient Nutrition Acuity: 1-High Follow Up Date: Feb 17, 2018 Nutritional Comment: 02/16/18 Pt admitted for Hyperkalemia and GALINA. Pt recently had PICC line placed and started on TPN for bowel rest to resolve fistula. Pt underwt with BMI of 16.6. Alb 2.9, High AST/ALT, Glu 125, High BUN/Creat, K+ 6.0. TPN discontinued and pt NPO at present. Follow clinical progression, diet changes, labs, etc. -DRZACKARY LOPEZ Feb 16, 2018 10:46
[2018-02-16] MEDS: cefTRIAXone 1 GM VIAL IVP SCH (10:48)
--- NOTE | 2018-02-16 11:00 | NUR ---
Physical Therapy Impression PT/OT co eval for patient safety. Pt requires maximal encouragement to participate in therapy session d/t high pain levels at rest. Per EMR, pt has received all available pain medication approx. 1 hours prior to evaluation. Pt completed bed mobility with SBA and demonstrates good ability to bridge in bed. Pt able to rise to stand with CGA from seated position at EOB. Once standing, pt required maxA to maintain safe standing position and requested return to seated position. Recommendation pending progress. Physical Therapy Goals 1: Pt to complete bed mobility with Rich 2: Pt to complete transfers with Rich and least restrictive AD 3: Pt to ambulate 30' with SBA and least restrictive AD. Patient's Goals
--- NOTE | 2018-02-16 11:31 | Antimicrobial Stewardship ---
Antimicrobial Stewardship Empiricly appropriate: Yes Significant PMH: Yes (Chronic UTI on antimicrobial for suppression, Hx of enterovesicle fistula, Hx of kidney stones/obstructive req stent) Support empiric regimen: Yes (Last Urine Cx grew e.coli sensitive to ceftriaxone) Approriate Cultures done: Yes (Urine Cx pending, cath UA completed) Cultures need repeate: Yes (Pending) Renal/Hepatic dosing: Yes (Ceftriaxone- No adjustment required for renal function) Determine cumulative duration: Abx Started on 02/16/18- Ceftriaxone Determine standard duration: Complicated UTI- 10-14D, likely continue chronic suppressive abx Comment 77 yo F with a PMH significant for enterovesical fistula, Chronic UTIs, kidney stones s/p ureteral stents who was admitted with K of 6.7, Scr 2. Dr. Morales has previously recommended chronic suppressive antibiotics for UTI prevention, however fill history is inconclusive and pt pharmacy is closed. Afebrile WBC 10.3 Lactate wnl Urine Cx pending UA (+) nitrite, (+) leuk esterase, (+) bacteria, WBC 17, (+) WBC clumps History- Urine Culture (12/16/17)--> e.coli (s) ceftriaxone UTI/complicated- Plan to treat with ceftriaxone pending culture results. Will call pharmacy/Dr. Morales about suppressive antibiotics, as it appears she may not be taking them appropriately or potentially the treatment plan has changed. Will also await CT to determine further course of treatment. Will continue to follow. Continue Ceftriaxone 1g IV Q24H. Bessy Valenzuela, PharmD, BCOP BESSY VALENZUELA Feb 16, 2018 11:31
[2018-02-16 12:19] VITALS: BP 96/54
[2018-02-16] MEDS: ALBUTEROL 2.5 MG/3 ML NEB NEB PRN (12:55)
--- NOTE | 2018-02-16 13:07 | NUR ---
Occupational Therapy Impression SBA supine<>sit with log roll. CGA sit<>stand transfers. Max Ax1 to maintain upright posture standing with RW. VSS WNL. Pt unsafe for stand pivot transfers at this time. Min A sit to supine. Pt requires significant encouragement for mobility. (I) bridging in bed. Apprehensive for movement due to pain, pain medication provided prior to tx. Recommendation pending progress. May require further rehab if pain continues to limit (I) with ADLs/IADLs. Occupational Therapy Goals 1) pt will be SBA UB/LB dressing. 2) pt will be SBA toilet task. 3) pt will be SBA grooming/hygiene. Patient's Goal
--- NOTE | 2018-02-16 13:52 | RADIOLOGY IMAGING REPORT ---
FACILITY: [facility] PATIENT NAME: Pamela Correa : 1940 MR: [id number] V: [id number] EXAM DATE: ORDERING PHYSICIAN: SHANNON MILLER TECHNOLOGIST: Location: [facility] - [place] Patient: Pamela Correa : 1940 Visit/Account:[id number] Date of Sevice: 02/16/2018 EXAMINATION: CT ABDOMEN AND PELVIS WITHOUT CONTRAST COMPARISON: CT 10/15/2017 and earlier. HISTORY: renal failure PROCEDURE: Multiplanar noncontrast CT of the abdomen and pelvis. One of the following dose optimizati on techniques was utilized in the performance of this exam: Automated exposure control; adjustment of the mA and/or kV according to the patient's size; or use of an iterative reconstruction technique. Specific details can be referenced in the facility's radiology CT exam operational policy. FINDINGS: Evaluation of the solid and viscus parenchymal organs and vascular structures is limited wi thout the benefit of IV contrast. Visualized thorax: Moderate sized hiatal hernia. Lung base volume loss and scarring. No acute findi ngs. Liver: Noncontrast imaging of the visualized liver is within normal limits. Gallbladder and biliary system: Mildly distended gallbladder containing multiple partially calcified stones. No definite evidence of pericholecystic inflammation or biliary dilation. Spleen: Negative. Pancreas: Mild parenchymal atrophy. No definite findings of inflammation. Adrenal glands: Negative. Kidneys and bladder: Right kidney upper and lower pole cysts appear minimally changed. Left kidney m idpole 3 mm nonobstructing stone. No radiopaque ureteral stone or hydronephrosis. Gas within the ur inary bladder. Vessels: Aortoiliac advanced atherosclerosis. Although evaluation of the vascular structures is limi rivera on noncontrast imaging, there is unchanged dense calcification along the distal aorta and both co mmon iliac arteries with associated luminal narrowing and the findings are suspicious for high-grade versus complete luminal stenosis. Bowel and mesentery: Moderate sized hiatal hernia. No gastric distention. 2.5 x 1.1 cm elongated so ft tissue collection adjacent to the gastric body near the diaphragm is of indeterminate etiology but unchanged over multiple prior studies. Surgical changes consistent with a distal colectomy with Evelio tman's pouch and left lateral abdominal colostomy redemonstrated. A right lower quadrant bowel anast omosis is present as well. No bowel distention or definite evidence of bowel wall inflammation is id entified. Pelvic organs: Negative. Lymph nodes: No definite enlarging lymph nodes. A perigastric 8mm round lymph node contained within the hiatal hernia is minimally changed over multiple prior studies. Free air/free fluid: None. Abdominal wall and osseous structures: Left lateral abdomen colostomy. No parastomal hernia. Chroni c skin thickening surrounding the ostomy with no definite acute inflammation in the abdominal wall. Osseous structures are demineralized. Severe degenerative change at L4-L5 with complete loss of the disc space, 9 mm of anterolisthesis, and marked irregularity of the endplates is minimally changed. Chronic cavity of the L3 superior endplate. No definite region of acute fracture or osseous destruct ion is identified. IMPRESSION: 1. Nonspecific gas in the urinary bladder. Correlation with urinalysis and any history of recent in strumentation is recommended. 2. No noncontrast CT findings of acute disease are otherwise identified in the abdomen and pelvis. 3. Extensive chronic findings as described above. Report Dictated By: Ghassan Keenan MD at 02/16/2018 1:31 PM Report E-Signed By: Ghassan Keenan MD at 02/16/2018 1:47 PM WSN:[id number]
[2018-02-16 15:43] VITALS: BP 104/55
[2018-02-16] MEDS ORDERED: INSULIN HUM REG 100 UN/ML 3 ML 10 UNIT, MULTIVITAMINS(*) 10 ML VIAL 10 ML, TRACE METALS... IV SCH (16:00)
[2018-02-16] MEDS: 1: INS HUM REG* 100 U/ML(ER ONLY) 10 UNIT, MULTIVITAMINS(*) 10 ML VIAL 10 ML, TRACE META IV SCH (16:41)
[2018-02-16] MEDS: FAT EMULSION 20% 250 ML BAG 250 ML IVPB SCH (16:42)
[2018-02-16 20:02] VITALS: BP 107/73
[2018-02-17] MEDS: D5 1/2 NS(*) 1000 ML BAG 1,000 ML IV PRN ×3 (00:07→21:53)
[2018-02-17 02:27] VITALS: BP 155/81
[2018-02-17 06:12] LABS: PLATELET COUNT, AUTOMATED 389 K/uL (150-450)
[2018-02-17 07:25] VITALS: BP 123/71
[2018-02-17] MEDS: 1: INS HUM REG* 100 U/ML(ER ONLY) 10 UNIT, MULTIVITAMINS(*) 10 ML VIAL 10 ML, TRACE META IV SCH (08:33)
[2018-02-17] MEDS: GABAPENTIN 300 MG CAP PO SCH ×2 (08:33→21:13)
--- NOTE | 2018-02-17 10:40 | RADIOLOGY IMAGING REPORT ---
FACILITY: [facility] [place] PATIENT NAME: Pamela Correa : 1940 MR: [id number] V: [id number] EXAM DATE: ORDERING PHYSICIAN: CJ HOUSER TECHNOLOGIST: Location: [facility] [place] Patient: Pamela Correa : 1940 Visit/Account:[id number] Date of Sevice: 02/17/2018 CHEST SINGLE AP Indication: Shortness of breath and tachycardia.. Comparison: September 24, 2017 Findings: Left sided PICC line with tip projecting over the distal SVC. Heart size within normal limits. Calcification within the aortic knob. No definitive focal consolidation. There is right basilar atelectasis and/or scarring. Left basilar atelectasis. Diffuse chronic interstitial changes and hyperexpansion of the lungs. No pneumothorax or pleural effusion. Advanced degenerative changes of the right glenohumeral joint. Mild/moderate degenerative changes of the left glenohumeral joint. IMPRESSION: 1. No acute cardiopulmonary process. 2. Chronic findings, as above. 3. Left-sided PICC line with tip projecting over the distal SVC. Report Dictated By: Lebron Almaguer MD at 02/17/2018 10:35 AM Report E-Signed By: Lebron Almaguer MD at 02/17/2018 10:37 AM WSN:[email or web address]
[2018-02-17] MEDS: ALBUTEROL 2.5 MG/3 ML NEB NEB PRN (10:54)
[2018-02-17] MEDS: cefTRIAXone 1 GM VIAL IVP SCH (11:01)
[2018-02-17 11:06] VITALS: BP 122/65
--- NOTE | 2018-02-17 11:25 | Hospitalist Progress Note ---
Subjective Progress Notes Subjective She has increased SOB this morning. She has been tachycardic and tachypneic. She denies cough. She is at her baseline oxygen use. Patient Complains of: Cardiovascular: No: Chest Pain Respiratory: Shortness of Breath Physical Exam Vital Signs Date Time Temp Pulse Resp B/P (MAP) Pulse Ox O2 Delivery O2 Flow Rate FiO2 02/17/18 10:52 106 18 02/17/18 10:43 93 Nasal Cannula 3.0 02/17/18 07:25 98.0 123/71 (88) Intake and Output 02/17/18 06:59 Intake Total 3178 ml Output Total 1100 ml Balance 2078 ml Intake IV Total 3178 ml Output Urine Total 1100 ml # Voids 6 General Appearance: Alert, Awake, No Acute Distress, Afebrile Neuro: No Gross deficits Cardiovascular: Regular Rate and Rhythm Respiratory: No Respiratory Distress, Other (expiratory wheezes, diminished in the bases.) GI: Soft and Non-Tender Psych: Alert & Oriented X3, Appropriate Mood & Affect Result Diagram: 02/17/18 0540 02/17/18 0540 Assessment and Plan Problems: (1) Hyperkalemia Status: Acute Assessment & Plan: She received IV insulin and D50, which lower her levels initially, but went up slightly again and caused her to have hypoglycemia. Her lisinopril has been discontinued. Her level improved to 5.2 this morning. (2) GALINA (acute kidney injury) Status: Acute Assessment & Plan: She is receiving IV fluids. Her renal function has improved to 1.2 from 2.0 at admission. (3) UTI (urinary tract infection) Status: Acute Assessment & Plan: She does have chronic pyuria and had stents placed several months ago. Previous records also indicate that she was to be on chronic suppressive therapy, but no antibiotics on in her profile. CT scan performed shows non-specific gas pattern in the bladder. She is followed by Dr. Morales. A preliminary urine culture is growing gram negative aurelio. She is on treatment with Rocephin. (4) Enterovesical fistula Status: Chronic Assessment & Plan: She is being managed by Dr. Sandy. She is currently on bowel rest and receiving TPN. We will call her home health to find out what she is receiving at home. (5) COPD (chronic obstructive pulmonary disease) Status: Chronic Assessment & Plan: She is on chronic treatment with albuterol and Advair. Resumed Advair today, along with nebulizers as she uses at home. (6) HTN (hypertension) Status: Chronic Assessment & Plan: She is on chronic treatment with lisinopril, which has been discontinued secondary to hyperkalemia. Her blood pressures are low without medication. (7) RLS (restless legs syndrome) Status: Chronic Assessment & Plan: She is on chronic treatment with ropinirole. (8) Anemia Status: Chronic Assessment & Plan: She does have a chronic anemia, but her counts are currently higher than they have been in the past. (9) Chronic pain Status: Chronic Assessment & Plan: She is on chronic treatment with gabapentin and Percocet. (10) Pressure ulcer Status: Acute Assessment & Plan: Partial skin thickness, L sacrum. The wound team has been consulted. Central Venous Access Medical Necessity for Access: IV Access, Medication Administration Exam Sepsis Risk: No Definite Risk Problem Qualifiers (1) HTN (hypertension): Hypertension type: essential hypertension Qualified Codes: I10 - Essential (primary) hypertension CJ HOUSER Feb 17, 2018 11:25
--- NOTE | 2018-02-17 13:24 | Medical Nutrition Therapy ---
Nutrition Anthropometrics Height (Inches): 62.00 Height (Calculated Centimeters: 157.624727 Weight (Pounds): 91 Weight (Calculated Kilograms): 41.362 BMI: 16.6 [place] Nutrition Score: Very Poor [place] Nutrition Risk Score: 12 Dietary Referral Nutrition Risk Factors: Unplanned Loss >10lbs Nutrition Risk Comment: Physical Findings Physical Appearance: Underweight BMI<19 Skin Appearance Skin Appearance: Edema Edema Location Modifier: Edema Location: Type of Edema: Degree of Edema: Gastrointestinal Symptoms GI Symtoms: Tube Present: Bowel Sounds: Recent Bowel Pattern: Stool Characteristics: Nutritional Diagnosis Nutritional Risk Acuity 1: Acute/ES Renal, TPN/PPN Nutritional Risk Acuity 2: St III or IV Press Ulcer (unstaged- full thickness wound to sacrum) Nutritional Risk Acuity 3: %IBW 81-89% Past Medical History: Hx of UTI, diverticulitis, ischemic necrosis of small bowel, enterovesical fistula, and multiple ab surgeries. Nutritional Acuity: 1-High Nutrition Diagnosis: Inadequate Food Intake Nutrition Etiology: Physiological Causes Nutrition Problem/Etiology/Sym: Inadequate Oral Intake related to decreased ability to consume sufficient energy, e.g. no appetite AEB reports of insufficient intake of energy from diet when compared to requirements. Energy Requirement: 1600 ([place]-St Jeor: IBW BW X 1.7) Protein Requirement: 82 (2gm/kg) Fluid Requirement: 1600 Diet Type: NPO (Nothing by Mouth) Nutrition Intervention: Incr diet as tolerated Food Likes: SOY MILK, Please offer! We do have it Additional Diet Restrictions: ALLERGY- iodine salt, bananas, honey, milk, and strawberries Diet Comment To RSA: Enjoys soy milk. Pt does not have lower teeth, recommend softer foods. Nutritional Support Current Enteral / Parental: TPN Current Tube Feeding Formula C: Clinimix5%-20%- 63ml/hr + lipids Current Duration: 24 Current Calories: 1330 Current Protein: 76 Current Lipids Calories: 500 Total Current Calories: 1830 Nutrition Monitoring & Eval Nutritional Goals Comment: TPN + lipids will meet nutr needs until oral intake can meet needs. RD Patient Assessment Time: [address] Assessment Type: RD Assessment Patient Nutrition Acuity: 1-High Follow Up Date: Feb 19, 2018 Nutritional Comment: 02/16/18 Pt admitted for Hyperkalemia and GALINA. Pt recently had PICC line placed and started on TPN for bowel rest to resolve fistula. Pt underwt with BMI of 16.6. Alb 2.9, High AST/ALT, Glu 125, High BUN/Creat, K+ 6.0. TPN discontinued and pt NPO at present. Follow clinical progression, diet changes, labs, etc. -DRT / TPN resumed. Pt recieving 63ml/hr + lipids which meet 91% est protein and 114% est kcal needs. Pt has incrased nutr needs r/t unstaged pressure area to sacrum. BUN/creatinine cont elevated at 36/1.2. Alb 2.9. Will cont to monitor. JULISSA BOLDEN Feb 17, 2018 13:15
[2018-02-17] MEDS: ALBUTEROL 2.5 MG/3 ML NEB NEB SCH ×2 (13:46→18:11)
[2018-02-17 15:28] VITALS: BP 80/59
--- NOTE | 2018-02-17 15:55 | NUR ---
Physical Therapy Impression Pt politely declined PT/OT co-tx. OT attempted at a later time during which Pt declined again. PT to attempt again tomorrow. Physical Therapy Goals 1: Pt to complete bed mobility with Rich 2: Pt to complete transfers with Rich and least restrictive AD 3: Pt to ambulate 30' with SBA and least restrictive AD. Patient's Goals
[2018-02-17] MEDS: FAT EMULSION 20% 250 ML BAG 250 ML IVPB SCH (16:05)
[2018-02-17] MEDS: LIDOCAINE 5% PATCH TP SCH (16:28)
[2018-02-17] MEDS: SALMETEROL/FLUTIC 250/50 1 INH INH SCH (18:11)
[2018-02-17 19:48] VITALS: BP 124/68
[2018-02-17] MEDS: PATCH REMOVAL 1 EA TP SCH (21:00)
[2018-02-17] MEDS: MELATONIN 3 MG TAB PO PRN (21:13)
[2018-02-17] MEDS ORDERED: guaiFENesin SYRP 100MG/5ML UDC PO PRN (21:15)
[2018-02-18] MEDS: 1: INS HUM REG* 100 U/ML(ER ONLY) 10 UNIT, MULTIVITAMINS(*) 10 ML VIAL 10 ML, TRACE META IV SCH ×2 (01:40→16:29)
[2018-02-18 03:47] VITALS: BP 129/62
[2018-02-18] MEDS: ALBUTEROL 2.5 MG/3 ML NEB NEB SCH ×4 (04:09→17:45)
[2018-02-18] MEDS: SALMETEROL/FLUTIC 250/50 1 INH INH SCH ×2 (04:09→17:45)
[2018-02-18 06:11] LABS: PLATELET COUNT, AUTOMATED 368 K/uL (150-450)
[2018-02-18 07:52] VITALS: BP 120/68
[2018-02-18] MEDS: D5 1/2 NS(*) 1000 ML BAG 1,000 ML IV PRN ×2 (09:04→20:52)
[2018-02-18] MEDS: LIDOCAINE 5% PATCH TP SCH (09:33)
[2018-02-18] MEDS: GABAPENTIN 300 MG CAP PO SCH (09:33)
[2018-02-18] MEDS: cefTRIAXone 1 GM VIAL IVP SCH (09:53)
[2018-02-18] MEDS: oxyCODONE HCL 5 MG CAP PO PRN ×2 (09:53→18:01)
--- NOTE | 2018-02-18 10:32 | NUR ---
Occupational Therapy Impression Attempted to see patient for therapy, pt. refusing secondary pain level. Nurse Practitioner stating that patient has voiced interest in pursing Hospice Care. Will attempt to see patient 02/19/18 for therapy pending Hospice care decision. Occupational Therapy Goals 1) pt will be SBA UB/LB dressing. 2) pt will be SBA toilet task. 3) pt will be SBA grooming/hygiene. Patient's Goal
[2018-02-18 12:04] VITALS: BP 145/67
[2018-02-18] MEDS: ACETAMINOPHEN 500 MG TAB PO PRN ×2 (12:17→20:53)
--- NOTE | 2018-02-18 12:49 | Hospitalist Progress Note ---
Subjective Progress Notes Subjective The patient spoke with me about "being done with life". She feels like she is done fighting the fistula and her chronic pain. She feels also her COPD has been worsening overtime. She would like to discuss hospice options. Patient Complains of: Cardiovascular: No: Chest Pain Respiratory: Shortness of Breath Physical Exam Vital Signs Date Time Temp Pulse Resp B/P (MAP) Pulse Ox O2 Delivery O2 Flow Rate FiO2 02/18/18 12:04 98.4 100 16 145/67 (93) 99 Nasal Cannula 3.0 Intake and Output 02/18/18 07:00 Intake Total 3248 ml Output Total 125 ml Balance 3123 ml Intake IV Total 3248 ml Stool Total 125 ml # Voids 7 General Appearance: Alert, Awake, No Acute Distress, Afebrile Neuro: No Gross deficits Cardiovascular: Regular Rate and Rhythm Respiratory: No Respiratory Distress, Other (diminshed lung sounds) GI: Other (pain upon palpation) Extremities: No Edema Psych: Alert & Oriented X3, Appropriate Mood & Affect Result Diagram: 02/18/1839 02/18/18538 Assessment and Plan Problems: (1) Hyperkalemia Status: Acute Assessment & Plan: Improved. She received IV insulin and D50, which lower her levels initially, but went up slightly again and caused her to have hypoglycemia. Her lisinopril has been discontinued. Her level improved to 4.3 this morning. (2) GALINA (acute kidney injury) Status: Acute Assessment & Plan: Improved. She has receiving IV fluids. Her renal function has improved to 0.8 from 2.0 at admission. (3) UTI (urinary tract infection) Status: Acute Assessment & Plan: She does have chronic pyuria and had stents placed several months ago. Previous records also indicate that she was to be on chronic suppressive therapy, but no antibiotics on in her profile. CT scan performed shows non-specific gas pattern in the bladder. She is followed by Dr. Morales. A preliminary urine culture is growing E.Coli. She is on treatment with Rocephin. (4) Enterovesical fistula Status: Chronic Assessment & Plan: She is being managed by Dr. Sandy. She is currently on bowel rest and receiving TPN. We will call her home health to find out what she is receiving at home. (5) COPD (chronic obstructive pulmonary disease) Status: Chronic Assessment & Plan: She is on chronic treatment with albuterol and Advair. Resumed Advair, along with nebulizers as she uses at home. (6) HTN (hypertension) Status: Chronic Assessment & Plan: She is on chronic treatment with lisinopril, which has been discontinued secondary to hyperkalemia. Her blood pressures are low without medication. (7) RLS (restless legs syndrome) Status: Chronic Assessment & Plan: She is on chronic treatment with ropinirole. (8) Anemia Status: Chronic Assessment & Plan: She does have a chronic anemia, but her counts are currently higher than they have been in the past. (9) Chronic pain Status: Chronic Assessment & Plan: She is on chronic treatment with gabapentin and Percocet. (10) Pressure ulcer Status: Acute Assessment & Plan: Partial skin thickness, L sacrum. The wound team has been consulted. (11) Failure to thrive Assessment & Plan: She would like to speak with hospice about further care. Anish haider await referral from discharge planning for patient disposition. Central Venous Access Medical Necessity for Access: IV Access, Medication Administration Exam Sepsis Risk: No Definite Risk Problem Qualifiers (1) HTN (hypertension): Hypertension type: essential hypertension Qualified Codes: I10 - Essential (primary) hypertension CJ HOUSER Feb 18, 2018 12:49
[2018-02-18] MEDS: DIAZEPAM 5 MG TAB PO PRN ×2 (13:36→20:52)
[2018-02-18 15:01] VITALS: BP 146/70
[2018-02-18] MEDS ORDERED: GABAPENTIN 300 MG CAP PO ONE (15:15)
--- NOTE | 2018-02-18 15:32 | NUR ---
Physical Therapy Impression Pt is contemplating hospice care. Nursing reports that they are frequently changing the sacral dressing as it is dislodged during bed roger use. PT will hold on wound care at this time. Physical Therapy Goals 1: Pt to complete bed mobility with Rich 2: Pt to complete transfers with Rich and least restrictive AD 3: Pt to ambulate 30' with SBA and least restrictive AD. Patient's Goals
--- NOTE | 2018-02-18 16:03 | NUR ---
Physical Therapy Impression Attempted to see patient for therapy, pt. refusing secondary pain level. Nurse Practitioner stating that patient has voiced interest in pursing Hospice Care. Will attempt to see patient 02/19/18 for therapy pending Hospice care decision. Physical Therapy Goals 1: Pt to complete bed mobility with Rich 2: Pt to complete transfers with Rich and least restrictive AD 3: Pt to ambulate 30' with SBA and least restrictive AD. Patient's Goals
--- NOTE | 2018-02-18 16:08 | NUR ---
Kimmy Patient Financial Services Manager at [facility] called for pt details Addendum: 02/18/18 at 1621 by FEDERICO WESLEY RN Kimmy asked for RA saturation, CO2 level, Creat, and platelet count available labs were verbally provided
[2018-02-18] MEDS: FAT EMULSION 20% 250 ML BAG 250 ML IVPB SCH (16:29)
[2018-02-18 19:39] VITALS: BP 138/75
[2018-02-18] MEDS: MELATONIN 3 MG TAB PO PRN (20:52)
[2018-02-18] MEDS ORDERED: GABAPENTIN 300 MG CAP PO SCH (21:00)
[2018-02-18] MEDS: PATCH REMOVAL 1 EA TP SCH (21:00)
[2018-02-19] MEDS: oxyCODONE HCL 5 MG CAP PO PRN ×3 (02:15→15:52)
[2018-02-19] MEDS: SALMETEROL/FLUTIC 250/50 1 INH INH SCH ×2 (05:11→17:17)
[2018-02-19] MEDS: ALBUTEROL 2.5 MG/3 ML NEB NEB SCH ×4 (05:11→17:18)
[2018-02-19] MEDS: D5 1/2 NS(*) 1000 ML BAG 1,000 ML IV PRN (05:43)
[2018-02-19] MEDS: DIAZEPAM 5 MG TAB PO PRN (06:27)
[2018-02-19 07:02] VITALS: BP 124/65
[2018-02-19] MEDS: ACETAMINOPHEN 500 MG TAB PO PRN ×2 (07:35→17:47)
[2018-02-19] MEDS ORDERED: D5 1/2 NS(*) 1000 ML BAG 1,000 ML IV PRN (08:12)
[2018-02-19 08:27] LABS: PLATELET COUNT, AUTOMATED 367 K/uL (150-450)
[2018-02-19] MEDS: 1: INS HUM REG* 100 U/ML(ER ONLY) 10 UNIT, MULTIVITAMINS(*) 10 ML VIAL 10 ML, TRACE META IV SCH (08:58)
[2018-02-19] MEDS: GABAPENTIN 300 MG CAP PO SCH ×2 (09:27→21:44)
[2018-02-19] MEDS: LIDOCAINE 5% PATCH TP SCH (09:28)
[2018-02-19] MEDS: cefTRIAXone 1 GM VIAL IVP SCH (10:30)
--- NOTE | 2018-02-19 11:19 | Hospitalist Progress Note ---
Subjective Progress Notes Subjective She has not been able to speak with hospice regarding care options. They are still reviewing her chart for decision. She reports some improvement in pain, but still is tearful in pain the morning. Physical Exam Vital Signs Date Time Temp Pulse Resp B/P (MAP) Pulse Ox O2 Delivery O2 Flow Rate FiO2 02/19/18 09:58 99 16 02/19/18 09:55 95 Room Air 02/19/18 07:18 1.0 02/19/18 07:02 98.4 124/65 (84) Intake and Output 02/19/18 07:00 Intake Total 1150 ml Output Total 200 ml Balance 950 ml Intake Oral 150 ml IV Total 1000 ml Stool Total 200 ml # Voids 11 General Appearance: Alert, Awake, No Acute Distress, Afebrile Neuro: No Gross deficits Cardiovascular: Regular Rate and Rhythm Respiratory: No Respiratory Distress, Other (diminished throughout) GI: Other (pain upon palpation) Extremities: Warm, Perfused; No Edema Psych: Alert & Oriented X3, Appropriate Mood & Affect Result Diagram: 02/19/1881902/19/18819 Assessment and Plan Problems: (1) Hyperkalemia Status: Acute Assessment & Plan: Improved. She received IV insulin and D50, which lower her levels initially, but went up slightly again and caused her to have hypoglycemia. Her lisinopril has been discontinued. Her level improved to 3.7 this morning. (2) GALINA (acute kidney injury) Status: Acute Assessment & Plan: Improved. She has receiving IV fluids. Her renal function has improved to 0.7 from 2.0 at admission. (3) UTI (urinary tract infection) Status: Acute Assessment & Plan: She does have chronic pyuria and had stents placed several months ago. Previous records also indicate that she was to be on chronic suppressive therapy, but no antibiotics on in her profile. CT scan performed shows non-specific gas pattern in the bladder. She is followed by Dr. Morales. A preliminary urine culture is growing E.Coli. She is on treatment with Rocephin. (4) Enterovesical fistula Status: Chronic Assessment & Plan: She is being managed by Dr. Sandy. She is currently on bowel rest and receiving TPN. (5) COPD (chronic obstructive pulmonary disease) Status: Chronic Assessment & Plan: She is on chronic treatment with albuterol and Advair. Resumed Advair, along with nebulizers as she uses at home. (6) HTN (hypertension) Status: Chronic Assessment & Plan: She is on chronic treatment with lisinopril, which has been discontinued secondary to hyperkalemia. Her blood pressures are low without medication. (7) RLS (restless legs syndrome) Status: Chronic Assessment & Plan: She is on chronic treatment with ropinirole. (8) Anemia Status: Chronic Assessment & Plan: She does have a chronic anemia. Her hemoglobin and hematoc rit have started to trend down. Continue to watch. (9) Chronic pain Status: Chronic Assessment & Plan: She is on chronic treatment with gabapentin and Oxycodone. (10) Pressure ulcer Status: Acute Assessment & Plan: Partial skin thickness, L sacrum. The wound team has been consulted. (11) Failure to thrive Assessment & Plan: She would like to speak with hospice about further care. Will await referral from discharge planning for patient disposition. Central Venous Access Medical Necessity for Access: IV Access, Medication Administration Exam Sepsis Risk: No Definite Risk Problem Qualifiers (1) HTN (hypertension): Hypertension type: essential hypertension Qualified Codes: I10 - Essential (primary) hypertension CJ HOUSER Feb 19, 2018 11:19
[2018-02-19 12:27] VITALS: BP 133/65
--- NOTE | 2018-02-19 12:55 | NUR ---
Physical Therapy Impression Pt seen for non-billable visit to assist with bedding and clothing change. Pt painful and politely declined rehabilitation. Physical Therapy Goals 1: Pt to complete bed mobility with Rich 2: Pt to complete transfers with Rich and least restrictive AD 3: Pt to ambulate 30' with SBA and least restrictive AD. Patient's Goals
--- NOTE | 2018-02-19 14:44 | Medical Nutrition Therapy ---
Nutrition Anthropometrics Height (Inches): 62.00 Height (Calculated Centimeters: 157.125803 Weight (Pounds): 91 Weight (Calculated Kilograms): 41.362 BMI: 16.6 Delmar Nutrition Score: Very Poor [place] Nutrition Risk Score: 11 Dietary Referral Nutrition Risk Factors: Unplanned Loss >10lbs Nutrition Risk Comment: Physical Findings Physical Appearance: Underweight BMI<19 Skin Appearance Skin Appearance: Edema Edema Location Modifier: Edema Location: Type of Edema: Degree of Edema: Gastrointestinal Symptoms GI Symtoms: Tube Present: Bowel Sounds: Recent Bowel Pattern: Stool Characteristics: Nutritional Diagnosis Nutritional Risk Acuity 1: Acute/ES Renal, TPN/PPN Nutritional Risk Acuity 2: St III or IV Press Ulcer (unstaged- full thickness wound to sacrum) Nutritional Risk Acuity 3: %IBW 81-89% Past Medical History: Hx of UTI, diverticulitis, ischemic necrosis of small bowel, enterovesical fistula, and multiple ab surgeries. Nutritional Acuity: 1-High Nutrition Diagnosis: Inadequate Food Intake Nutrition Etiology: Physiological Causes Nutrition Problem/Etiology/Sym: Inadequate Oral Intake related to decreased ability to consume sufficient energy, e.g. no appetite AEB reports of insufficient intake of energy from diet when compared to requirements. Energy Requirement: 1600 (Dickson-St Jeor: IBW BW X 1.7) Protein Requirement: 82 (2gm/kg) Fluid Requirement: 1600 Diet Type: NPO (Nothing by Mouth) Nutrition Intervention: Incr diet as tolerated Food Likes: SOY MILK, Please offer! We do have it Additional Diet Restrictions: ALLERGY- iodine salt, bananas, honey, milk, and strawberries Diet Comment To RSA: Enjoys soy milk. Pt does not have lower teeth, recommend softer foods. Nutritional Support Current Enteral / Parental: TPN Current Tube Feeding Formula C: Clinimix5%-20%- 63ml/hr + lipids Current Duration: 24 Current Calories: 1330 Current Protein: 76 Current Lipids Calories: 500 Total Current Calories: 1830 Nutrition Monitoring & Eval Nutritional Goals Comment: TPN will meet nutr needs until oral intake can meet needs. RD Patient Assessment Time: [address] Assessment Type: RD Assessment Patient Nutrition Acuity: 1-High Follow Up Date: Feb 22, 2018 Nutritional Comment: 02/16/18 Pt admitted for Hyperkalemia and GALINA. Pt recently had PICC line placed and started on TPN for bowel rest to resolve fistula. Pt underwt with BMI of 16.6. Alb 2.9, High AST/ALT, Glu 125, High BUN/Creat, K+ 6.0. TPN discontinued and pt NPO at present. Follow clinical progression, diet changes, labs, etc. -DRT 02/17 TPN resumed. Pt recieving 63ml/hr + lipids which meet 91% est protein and 114% est kcal needs. Pt has incrased nutr needs r/t unstaged pressure area to sacrum. BUN/creatinine cont elevated at 36/1.2. Alb 2.9. Will cont to monitor. BK 02/19 Pt cont on TPN at 63ml/hr + lipids which is meeting nutr needs. K+ 3.7, alb 2.9. Will cont to monitor . JULISSA BOLDEN Feb 19, 2018 14:44
[2018-02-19 14:57] VITALS: BP 127/61
[2018-02-19] MEDS: FAT EMULSION 20% 250 ML BAG 250 ML IVPB SCH (16:01)
[2018-02-19 19:08] VITALS: BP 114/71
[2018-02-19] MEDS: traMADol 50 MG TAB PO PRN (19:55)
[2018-02-19] MEDS: PATCH REMOVAL 1 EA TP SCH (21:00)
[2018-02-20 00:29] VITALS: BP 142/69
[2018-02-20] MEDS: oxyCODONE HCL 5 MG CAP PO PRN ×3 (00:37→20:20)
[2018-02-20] MEDS: MELATONIN 3 MG TAB PO PRN (00:38)
[2018-02-20] MEDS: 1: INS HUM REG* 100 U/ML(ER ONLY) 10 UNIT, MULTIVITAMINS(*) 10 ML VIAL 10 ML, TRACE META IV SCH ×2 (00:38→15:14)
[2018-02-20] MEDS ORDERED: ALBUTEROL 2.5 MG/3 ML NEB NEB PRN (00:55)
[2018-02-20] MEDS ORDERED: ALBUTEROL 2.5 MG/3 ML NEB ONE (01:10)
[2018-02-20] MEDS: traMADol 50 MG TAB PO PRN ×3 (04:34→23:31)
[2018-02-20] MEDS: SALMETEROL/FLUTIC 250/50 1 INH INH SCH ×2 (05:19→18:23)
[2018-02-20] MEDS: ALBUTEROL 2.5 MG/3 ML NEB NEB SCH ×4 (05:19→18:23)
--- NOTE | 2018-02-20 06:27 | NUR ---
bloodglucose per am labdraw Addendum: 02/20/18 at 0628 by PROSPER RICE RN Amended: Links added.
[2018-02-20 06:43] LABS: PLATELET COUNT, AUTOMATED 402 K/uL (150-450)
[2018-02-20 07:34] VITALS: BP 137/68
[2018-02-20] MEDS: LIDOCAINE 5% PATCH TP SCH (09:39)
[2018-02-20] MEDS: GABAPENTIN 300 MG CAP PO SCH ×2 (09:39→20:19)
--- NOTE | 2018-02-20 10:45 | NUR ---
Physical Therapy Impression Pt reports improved pain control. SBA for supine to sit, Aren for sit to supine. Pt dionna to stand with EZ lift and CGA. Once in EZ lift, pt attempted to april, but did report increased dizziness requesting to return to seated position. Vital signs demonstrate appropriate response to activity. Physical Therapy Goals 1: Pt to complete bed mobility with Rich 2: Pt to complete transfers with Rich and least restrictive AD 3: Pt to ambulate 30' with SBA and least restrictive AD. Patient's Goals
[2018-02-20 10:57] VITALS: BP 157/79
[2018-02-20] MEDS: cefTRIAXone 1 GM VIAL IVP SCH (11:09)
--- NOTE | 2018-02-20 11:39 | Hospitalist Progress Note ---
Subjective Progress Notes Subjective 77F admitted for dehydration and hyperkalemia. VIV overnight, off IV fluids. Doing well. Patient Complains of: Respiratory: No: Cough Gastrointestinal: No Nausea, No Vomiting Physical Exam Vital Signs Date Time Temp Pulse Resp B/P (MAP) Pulse Ox O2 Delivery O2 Flow Rate FiO2 02/20/18 10:30 105 16 02/20/18 10:26 96 Nasal Cannula 1.0 02/20/18 07:34 98.2 137/68 (91) Intake and Output 02/20/18 07:00 Intake Total 2541 ml Output Total 150 ml Balance 2391 ml IV Total 2541 ml Stool Total 150 ml # Voids 8 General Appearance: Alert, Awake, No Acute Distress Neuro: No Gross deficits ENT: Normal Cardiovascular: Normal Rhythm & Peripheral Pulses Respiratory: No Respiratory Distress GI: Soft and Non-Tender Extremities: Soft and Non Tender, Warm, Pulses, Perfused; No Edema Integumentary: Skin Intact without Lesion / Mass Result Diagram: 02/20/18 0620 02/20/18 0520 Assessment and Plan Problems: (1) Hyperkalemia Status: Acute Assessment & Plan: Resolved. She received IV insulin and D50, which lowered her levels initially, but went up slightly again and caused her to have hypoglycemia. Her lisinopril has been discontinued. (2) GALINA (acute kidney injury) Status: Acute Assessment & Plan: Improved. She received IV fluids. Monitoring for possible need for infusions as outpatient. (3) UTI (urinary tract infection) Status: Acute Assessment & Plan: She does have chronic pyuria and had stents placed several months ago. Previous records also indicate that she was to be on chronic suppressive therapy, but no antibiotics on in her profile. CT scan performed s hows non-specific gas pattern in the bladder. She is followed by Dr. Morales. A preliminary urine culture is growing E.Coli. She is on treatment with Rocephin. (4) Enterovesical fistula Status: Chronic Assessment & Plan: She is being managed by Dr. Sandy. She is currently on bowel rest and receiving TPN. (5) COPD (chronic obstructive pulmonary disease) Status: Chronic Assessment & Plan: She is on chronic treatment with albuterol and Advair. Resumed Advair, along with nebulizers as she uses at home. (6) HTN (hypertension) Status: Chronic Assessment & Plan: She is on chronic treatment with lisinopril, which has been discontinued secondary to hyperkalemia. Her blood pressures are low without medication. (7) RLS (restless legs syndrome) Status: Chronic Assessment & Plan: She is on chronic treatment with ropinirole. (8) Anemia Status: Chronic Assessment & Plan: She does have a chronic anemia. Her hemoglobin and hematocrit have started to trend down. Continue to watch. (9) Chronic pain Status: Chronic Assessment & Plan: She is on chronic treatment with gabapentin and Oxycodone. (10) Pressure ulcer Status: Acute Assessment & Plan: Partial skin thickness, L sacrum. The wound team has been consulted. (11) Failure to thrive Assessment & Plan: She would like to speak with hospice about further care. Will await referral from discharge planning for patient disposition. Central Venous Access Medical Necessity for Access: IV Access, Medication Administration Exam Sepsis Risk: No Definite Risk Problem Qualifiers (1) HTN (hypertension): Hypertension type: essential hypertension Qualified Codes: I10 - Essential (primary) hypertension ADRIAN STALEY DO Feb 20, 2018 11:39
[2018-02-20 15:43] VITALS: BP 136/69
[2018-02-20] MEDS: FAT EMULSION 20% 250 ML BAG 250 ML IVPB SCH (17:15)
[2018-02-20 19:31] VITALS: BP 126/72
[2018-02-20] MEDS: PATCH REMOVAL 1 EA TP SCH (20:19)
[2018-02-21] MEDS: MELATONIN 3 MG TAB PO PRN ×2 (00:21→23:11)
[2018-02-21 01:55] VITALS: BP 136/74
[2018-02-21] MEDS: oxyCODONE HCL 5 MG CAP PO PRN ×3 (04:37→23:12)
[2018-02-21] MEDS: ALBUTEROL 2.5 MG/3 ML NEB NEB SCH ×4 (05:40→17:30)
[2018-02-21] MEDS: SALMETEROL/FLUTIC 250/50 1 INH INH SCH ×2 (05:40→17:31)
[2018-02-21] MEDS ORDERED: DEXTROSE 50% 50 ML SYR IVP ONE (05:55)
[2018-02-21] MEDS ORDERED: DEXTROSE 50% 50 ML SYR ONE (06:00)
[2018-02-21 06:54] VITALS: BP 131/61
[2018-02-21] MEDS ORDERED: NS(*) 0.9% 1000 ML BAG 1,000 ML IV ONE (08:55)
[2018-02-21] MEDS: LIDOCAINE 5% PATCH TP SCH (09:44)
[2018-02-21] MEDS: valACYclovir HCL 500 MG TAB PO SCH ×2 (09:44→22:27)
[2018-02-21] MEDS: GABAPENTIN 300 MG CAP PO SCH ×2 (09:44→21:10)
[2018-02-21] MEDS ORDERED: methylPREDNIS SUCC 125 MG/2ML IVP ONE (09:50)
--- NOTE | 2018-02-21 10:04 | Hospitalist Progress Note ---
Subjective Progress Notes Subjective She reports her pain is well controlled. She had an asymptomatic glucose of 64 this morning. Physical Exam Vital Signs Date Time Temp Pulse Resp B/P (MAP) Pulse Ox O2 Delivery O2 Flow Rate FiO2 02/21/18 07:56 95 Nasal Cannula 1.0 02/21/18 06:54 98.6 111 20 131/61 (84) Intake and Output 02/21/18 06:59 Intake Total 20 ml Output Total 375 ml Balance -355 ml Intake Oral 20 ml Stool Total 375 ml # Voids 4 General Appearance: Alert, Awake, No Acute Distress Result Diagram: 02/20/18 0620 02/21/18 0533 Assessment and Plan Problems: (1) Enterovesical fistula Status: Chronic Assessment & Plan: She is being managed by Dr. Sandy. She is currently on bowel rest and receiving TPN/lipids (meeting nutritional needs per dietary). Glucose was 64 this morning and 66 yesterday. Will decrease insulin from 10 to 8 units in the TPN. BUN is up a bit, so will give a liter of NS today. Trying to assess how much NS supplementation she will need as an outpatient. (2) Anemia Status: Chronic Assessment & Plan: She does have a chronic anemia. B12 and folate are wnl. Iron is low at 26 and TIBC is wnl. Likely, she has malabsorption (on oral iron previously), so will give IV iron today. Follow Hgb. (3) Hyperkalemia Status: Resolved Assessment & Plan: Likely, secondary to dehydration and lisinopril use. Resolved. She received IV insulin and D50, which lowered her levels initially, but went up slightly again and caused her to have hypoglycemia. She was hydrated and her lisinopril has been discontinued. (4) GALINA (acute kidney injury) Status: Resolved Assessment & Plan: Improved. She received IV fluids. See above. (5) UTI (urinary tract infection) Status: Acute Assessment & Plan: She does have chronic pyuria and had stents placed several months ago. Previous records also indicate that she was to be on chronic suppressive therapy, but no antibiotics on in her profile. CT scan performed shows non-specific gas pattern in the bladder. She is followed by Dr. Morales. A urine culture is growing E.Coli. She is on treatment with Rocephin. (6) COPD (chronic obstructive pulmonary disease) Status: Chronic Assessment & Plan: She is on chronic treatment with albuterol and Advair. Resumed Advair, along with nebulizers as she uses at home. (7) HTN (hypertension) Status: Chronic Assessment & Plan: She is on chronic treatment with lisinopril, which has been discontinued secondary to hyperkalemia. Her blood pressures are normal without medication. (8) RLS (restless legs syndrome) Status: Chronic Assessment & Plan: She is on chronic treatment with ropinirole. (9) Chronic pain Status: Chronic Assessment & Plan: She is on chronic treatment with gabapentin, tramadol and Oxycodone. She reports that her pain is well controlled. (10) Pressure ulcer Status: Acute Assessment & Plan: Partial skin thickness, L sacrum. The wound team has been consulted. Central Venous Access Medical Necessity for Access: IV Access, Medication Administration Exam Sepsis Risk: No Definite Risk Problem Qualifiers (1) HTN (hypertension): Hypertension type: essential hypertension Qualified Codes: I10 - Essential (primary) hypertension VAHID UP MD Feb 21, 2018 10:04
[2018-02-21] MEDS: INS HUM REG U IV SCH (10:08)
[2018-02-21] MEDS: [UNRECOGNIZED DRUG - OTHER] IV SCH (10:08)
[2018-02-21] MEDS: MULTIVITAMINS IV SCH (10:08)
[2018-02-21] MEDS: traMADol 50 MG TAB PO PRN ×2 (10:24→20:26)
[2018-02-21] MEDS ORDERED: NS 0.9% IVPB ONE (10:30)
[2018-02-21] MEDS ORDERED: FERRIC CARBOXY IVPB ONE (10:30)
[2018-02-21] MEDS: cefTRIAXone 1 GM VIAL IVP SCH (11:06)
[2018-02-21 15:29] VITALS: BP 109/63
[2018-02-21] MEDS: FAT EMULSION 20% 250 ML BAG 250 ML IVPB SCH (15:46)
[2018-02-21 19:24] VITALS: BP 130/68
[2018-02-21] MEDS: PATCH REMOVAL 1 EA TP SCH (21:00)
[2018-02-21] MEDS ORDERED: INS HUM REG U IV SCH (23:44)
[2018-02-21] MEDS ORDERED: MULTIVITAMINS IV SCH (23:44)
[2018-02-21] MEDS ORDERED: [UNRECOGNIZED DRUG - OTHER] IV SCH (23:44)
[2018-02-21 23:50] VITALS: BP 144/49
[2018-02-22] MEDS: MULTIVITAMINS IV SCH (02:30)
[2018-02-22] MEDS: [UNRECOGNIZED DRUG - OTHER] IV SCH (02:30)
[2018-02-22] MEDS: INS HUM REG U IV SCH (02:30)
[2018-02-22] MEDS: ACETAMINOPHEN 500 MG TAB PO PRN (03:02)
[2018-02-22 04:50] VITALS: BP 139/73
[2018-02-22] MEDS: traMADol 50 MG TAB PO PRN ×2 (04:53→13:27)
[2018-02-22] MEDS: SALMETEROL/FLUTIC 250/50 1 INH INH SCH (05:47)
[2018-02-22] MEDS: ALBUTEROL 2.5 MG/3 ML NEB NEB SCH ×5 (05:48→17:08)
[2018-02-22 06:25] LABS: PLATELET COUNT, AUTOMATED 421 K/uL (150-450)
[2018-02-22] MEDS: oxyCODONE HCL 5 MG CAP PO PRN (06:36)
[2018-02-22 07:20] VITALS: BP 120/61
[2018-02-22] MEDS: GABAPENTIN 300 MG CAP PO SCH (09:35)
[2018-02-22] MEDS: LIDOCAINE 5% PATCH TP SCH (09:36)
[2018-02-22] MEDS: valACYclovir HCL 500 MG TAB PO SCH (09:40)
[2018-02-22] MEDS ORDERED: cefTRIAXone 1 GM VIAL IVP SCH (10:30)
[2018-02-22] MEDS ORDERED: GABA-549 PO (12:29)
--- NOTE | 2018-02-22 12:34 | Hospitalist Depart ---
Discharge Summary Reason for Hosp/Final Diag: (1) Enterovesical fistula Status: Chronic Hospital Course & Plan: She is being managed by Dr. Reece. She is currently on bowel rest and receiving TPN/lipids (meeting nutritional needs per dietary). Glucose was 64 this morning and 66 yesterday. Will decrease insulin from 10 to 8 units in the TPN. Will schedule 1L NS on MWF to be infused to prevent dehydration. (2) Anemia Status: Chronic Hospital Course & Plan: She does have a chronic anemia. B12 and folate are wnl. Iron is low at 26 and TIBC is wnl. Likely, she has malabsorption (on oral iron previously), received one dose IV iron, continue outpatient medication. (3) Hyperkalemia Status: Resolved Hospital Course & Plan: Likely, secondary to dehydration and lisinopril use. Resolved. She received IV insulin and D50, which lowered her levels initially, but went up slightly again and caused her to have hypoglycemia. She was hydrated and her lisinopril was held, recommend recheck K level outpatient. Consider if lisinopril necessary. (4) GALINA (acute kidney injury) Status: Resolved Hospital Course & Plan: Resolved. She received IV fluids. Will schedule infusion 1L NS as above.. (5) UTI (urinary tract infection) Status: Acute Hospital Course & Plan: She does have chronic pyuria and had stents placed several months ago. Previous records also indicate that she was to be on chronic suppressive therapy, but no antibiotics on in her profile. CT scan performed shows non-specific gas pattern in the bladder. She is followed by Dr. Morales. A urine culture is growing E.Coli. Completed 7 days Rocephin. (6) COPD (chronic obstructive pulmonary disease) Status: Chronic Hospital Course & Plan: She is on chronic treatment with albuterol and Advair. Resumed Advair, along with nebulizers as she uses at home. (7) HTN (hypertension) Status: Chronic Hospital Course & Plan: She is on chronic treatment with lisinopril, which has been discontinued secondary to hyperkalemia. Her blood pressures are normal without medication, evaluate ongoing need.. (8) RLS (restless legs syndrome) Status: Chronic Hospital Course & Plan: She is on chronic treatment with ropinirole. (9) Chronic pain Status: Chronic Hospital Course & Plan: She is on chronic treatment with gabapentin, tramadol and Oxycodone. She reports that her pain is well controlled. (10) Pressure ulcer Status: Acute Hospital Course & Plan: Partial skin thickness, L sacrum. The wound team has been consulted. Continue outpatient wound care. Departure Weight (Pounds): 91 Weight (Ounces): 3.0 Result Diagram: 02/22/1854202/22/18542 Condition: Improved PT/OT Follow Up For: PT For Strengthening, OT For ADL's, PT Evaluation and Treat, OT Evaluation and Treat Home Health RN Follow Up For: Wound [facility] WATER QUALITY ANALYST Follow Up For: ADL Assistance Discharge Instructions Home Meds Active Scripts Gabapentin (GABAPENTIN) 300 Mg Capsule, 600 MG PO BID for 30 Days, #60 CAPSULE Prov:YURI HEATHADRIAN DO 02/22/18 Oxycodone Hcl/Acetaminophen (OXYCODONE-ACETAMINOPHEN 5-325) 1 Each Tablet, 1 TAB PO Q4H PRN for PAIN, #20 TAB Prov:SHANNON MILLER DO 10/17/17 Reported Medications Phenazopyridine Hcl (PHENAZOPYRIDINE HCL) 200 Mg Tablet, 200 MG PO TID PRN for BURNING WITH URINATION, #30 TAB 09/28/17 Pantoprazole Sodium (PANTOPRAZOLE SODIUM) 40 Mg Tablet.dr, 40 MG PO QDAY, #90 TAB.SR 02/19/17 Melatonin (MELATONIN) 3 Mg Tablet, 2 TAB PO PRN 02/17/17 Albuterol Sulfate 0.083% (ALBUTEROL SULFATE 0.083%) 2.5 Mg/3 Ml Vial.neb, 2.5 MG INH QID, INH 02/17/17 Albuterol Sulfate 90 Mcg/Act (PROAIR HFA 90 MCG/ACT) 8.5 Gm Hfa.aer.ad, 2-4 PUFF IH PRN, INHALER 02/17/17 Oxygen (OXYGEN) Inha, 2.5 L INH cont., L 04/24/15 Ca Carbonate/Vitamin D3/Vit K (VIACTIV SOFT CHEW TABLET) 1 Each Tab.chew, 1 EACH PO DAILY, TAB.CHEW 12/14/13 Cholecalciferol (Vitamin D3) (VITAMIN D) 2,000 Unit Capsule, 2000 UNIT PO DAILY, CAPSULE 12/14/13 Ropinirole Hcl (ROPINIROLE HCL) 0.5 Mg Tablet, 0.5 MG PO BID PRN for SPASMS take 1/2 tab 2-3 times a day as needed for leg cramps 11/21/13 Aspirin (ASPIRIN) 81 Mg Tab.chew, 81 MG PO QDAY, TAB.CHEW TAKE 1 TABLET BY MOUTH EVERY DAY 11/21/13 Ascorbic Acid (VITAMIN C) 250 Mg Tablet, 250 MG PO QDAY 11/21/13 [place]-3 Fatty Acids (FISH OIL) 300 Mg Capsule, 300 MG PO QDAY, CAPSULE 11/21/13 Discontinued Reported Medications Gabapentin (GABAPENTIN) 300 Mg Capsule, 300 MG PO BID 02/16/18 Lisinopril (LISINOPRIL) 20 Mg Tablet, 20 MG PO QDAY, TAB 09/25/17 Tramadol Hcl (TRAMADOL HCL) 50 Mg Tablet, 50-100 MG PO Q6H PRN for PAIN 12/14/13 Ropinirole Hcl (REQUIP) 0.5 Mg Tablet, 0.5 MG PO BID PRN for leg cramps 02/16/18 Fluticasone/Salmeterol (ADVAIR 250-50 DISKUS) 1 Each Disk.w.dev, 1 PUFF IH BID 02/17/17 Ipratropium [place]ison (IPRATROPIUM BROMIDE) 0.2 Mg/1 Ml Solution, 1 ML IH QID 08/07/14 Discontinued Scripts Nitrofurantoin Monohyd/M-Cryst (MACROBID 100 MG CAPSULE) 100 Mg Capsule, 100 MG PO QDAY, #30 CAPSULE Start when levofloxacin is finished. Prov:SHANNON MILLER DO 10/17/17 Activity: As Tolerated Special Instructions: Please follow up with your PCP and surgeon. Your TPN was adjusted to have less insulin as you were experiencing hypoglycemic episodes in am. YOu are scheduled to get 1L NS MWF as you were dehydrated from bowel rest. Copies to: EUN ARCHULETA DO; SHANNON REECE MD ; Venous Thromboembolism Antithrombotics Is Pt On Any Antithrombotics?: Yes [id number] Certification Face to Face Home Health Certification Institutional Provider conducted the [id number] encounter. Electronic Undersigning Physician Certifies Home Health. I certify that the patient has been under my care and that I had a [id number] encounter that meets the physician [id number] encounter requirements with this patient. This patient is home-bound due to safety issues and continues to require assistance with ADL's. I certify that based on my findings, that Nursing, Aides and the following Home Health services are medically necessary. TPN reduced insulin content to 8 units from 10. Infuse 1L NS at 200-250cc/hour three times weekly MWF. Recheck CMP on 03.01.2018 and send result to Dr Castaneda. Medical Necessity: Nursing, Rehab Date Face to Face Conducted: Feb 22, 2018 Problem Qualifiers (1) HTN (hypertension): Hypertension type: essential hypertension Qualified Codes: I10 - Essential (primary) hypertension ADRIAN STALEY DO Feb 22, 2018 12:34
--- NOTE | 2018-02-22 13:20 | NUR ---
Occupational Therapy Impression Pt alert and agreeable to PT/OT upon 2nd attempt. SBA bed mobility supine to sit. Min A sit<>stand and ambulation to toilet with RW. Posterior lean and decreased balance noted. Mod A toileting. Min A sit to supine. Encouraged pt to consider further inpatient rehab prior to discharge home. Pt verbalized understanding but is adamant that she will only return home with services and assist from spouse. Pt declining further needs/questions at this time. Occupational Therapy Goals 1) pt will be SBA UB/LB dressing. 2) pt will be SBA toilet task. 3) pt will be SBA grooming/hygiene. Patient's Goal
--- NOTE | 2018-02-22 14:42 | NUR ---
PHYSICAL THERAPY INFORMATION TRANSFER SHEET BED MOBILITY: Standby Assistance Minimum Assistance 1 person assist TRANSFERS: Minimum Assistance GAIT: 10' with Mod A and RW. Posterior loss of balance noted during ambulation. Weightbearing Status: STAIRS: with . EXERCISES: Verbalizes Needs: Yes Understands Directions Yes Cooperative: Yes Family Teaching: Yes Physical Therapy Comment:
--- NOTE | 2018-02-22 14:54 | NUR ---
OCCUPATIONAL THERAPY Dressing Assistance: Max A Dressing Aid Required: None Bathing Assistance: N/T with OT Bathing Equipment: Discussed AE for bathroom-pt reports adequate set-up Home Assessment: Not Completed Feeding Assistance: Set-up Feeding Specialized Equipment: None Toilet Use: Moderate Assistance Verbalizes Needs: Yes Understands Precautions: Yes Cooperative: Yes Family Teaching: No Occupational Therapy Comment: Educated on bedside commode should she decide to obtain, pt declined at this time.
--- NOTE | 2018-02-22 15:10 | NUR ---
Physical Therapy Impression Pt is not safe to DC home at this time. Please see full PT note for details. This PT discussed recommendation for additional inpatient rehabilitation due to safety concerns. Pt politely declined. OT also expressed to Pt concerns for safety at home with functional mobility. Pt continued to decline stating she was going home. Recommend Pt have home health and 24 hour care/assistance. Pt plans to use wheelchair for mobility and states her can assist. Physical Therapy Goals 1: Pt to complete bed mobility with Rich 2: Pt to complete transfers with Rich and least restrictive AD 3: Pt to ambulate 30' with SBA and least restrictive AD. Patient's Goals
[2018-02-22] MEDS: FAT EMULSION 20% 250 ML BAG 250 ML IVPB SCH (16:00)
[2018-02-22] MEDS ORDERED: TRAM-420 PO (17:03)
--- NOTE | 2018-02-22 21:12 | NUR ---
late entry Addendum: 02/22/18 at 2112 by PROSPER RICE RN Amended: Links added.
== END 2018-02-22 17:30 | disposition home health service (06) | DRG 683 ==
LOC: ER 19:34 → MED 02-16 01:00
PROVIDERS: ADMIT Internal Medicine; ATTEND Internal Medicine
DX: N17.9 Acute kidney failure, unspecified (principal); N32.1 Vesicointestinal fistula; K90.9 Intestinal malabsorption, unspecified; N39.0 Urinary tract infection, site not specified; E87.5 Hyperkalemia; E86.0 Dehydration; D50.9 Iron deficiency anemia, unspecified; B96.20 Unspecified Escherichia coli [E. coli] as the cause of diseases classified elsewhere; L89.152 Pressure ulcer of sacral region, stage 2; J44.9 Chronic obstructive pulmonary disease, unspecified; I10 Essential (primary) hypertension; G25.81 Restless legs syndrome; G89.29 Other chronic pain; M54.30 Sciatica, unspecified side; E16.0 Drug-induced hypoglycemia without coma; T38.3X5A Adverse effect of insulin and oral hypoglycemic [antidiabetic] drugs, initial encounter; R62.7 Adult failure to thrive; Z91.040 Latex allergy status; Z88.8 Allergy status to other drugs, medicaments and biological substances; Z91.011 Allergy to milk products; Z91.018 Allergy to other foods; Z87.891 Personal history of nicotine dependence; Z93.3 Colostomy status
CPT/HCPCS: 36415; 36416; 71045; 74176; 81001; 82040; 82247; 82310; 82374; 82435; 82550; 82565; 82607; 82746; 82947; 82948; 83540; 83550; 83605; 83735; 84075; 84100; 84132; 84155; 84295; 84450; 84460; 84520; 85025; 85027; 85045; 87077; 87088; 87186; 93005; 94640; 94667; 94668; 97161; 97166; A4353; J0131; J0610; J0696; J1439; J1815; J2930; J7030; J7050; J7060; J7613

== ENCOUNTER → 2018-02-15 | Outpatient (REF) | payer MEDICARE ==
[2017-10-16 10:11] VITALS: BMI 21.7
[~2018-02-15] MED LIST changes: -LOSA50TA74 PO; +LOSA50TA80 PO; +ROPI0.5T24 PO
== END ==
LOC: ZZSENDIN 16:55
PROVIDERS: ATTEND Surgery
DX: Z78.9 Other specified health status (principal)
CPT/HCPCS: 82040; 82247; 82310; 82374; 82435; 82565; 82947; 83735; 84075; 84100; 84132; 84155; 84295; 84450; 84460; 84520; 85027

== ENCOUNTER → 2018-02-15 | Outpatient (CLI) | payer MEDICARE ==
[~2018-02-15] MED LIST changes: -AMLO-111 PO; +AMLO-125 PO; -FERR15DR3 PO; +FERR15DR4 PO
[2018-02-16 10:31] VITALS: BMI 16.6
== END ==
LOC: AMB 19:01
PROVIDERS: ATTEND Nurse Practitioner
DX: E87.5 Hyperkalemia (principal)
CPT/HCPCS: A0425; A0429

== ENCOUNTER → 2018-02-25 | Outpatient (REF) | payer MEDICARE ==
[2018-02-16 10:31] VITALS: BMI 16.6
[~2018-02-25] MED LIST changes: -AMLO-111 PO; +AMLO-125 PO; -FERR15DR3 PO; +FERR15DR4 PO; +ROPI0.5T24 PO
[2018-02-25 12:45] LABS: PLATELET COUNT, AUTOMATED 664 K/uL (150-450)
== END ==
LOC: ZZSENDIN 12:36
PROVIDERS: ATTEND Family Medicine
DX: D50.9 Iron deficiency anemia, unspecified (principal); Z78.9 Other specified health status
CPT/HCPCS: 82040; 82247; 82310; 82374; 82435; 82565; 82947; 83540; 83735; 84075; 84100; 84132; 84155; 84295; 84450; 84460; 84520; 85025

== ENCOUNTER → 2018-03-01 | Outpatient (REF) | payer MEDICARE ==
[2018-02-16 10:31] VITALS: BMI 16.6
== END ==
LOC: ZZSENDIN 16:05
PROVIDERS: ATTEND Surgery
DX: Z78.9 Other specified health status (principal)
CPT/HCPCS: 82040; 82247; 82310; 82374; 82435; 82565; 82947; 83735; 84075; 84100; 84132; 84155; 84295; 84450; 84460; 84520; 85027

== ENCOUNTER → 2018-03-04 | Outpatient (REF) | payer MEDICARE ==
[2018-02-16 10:31] VITALS: BMI 16.6
== END ==
PROVIDERS: ATTEND Surgery
DX: Z78.9 Other specified health status (principal)
CPT/HCPCS: 82040; 82247; 82310; 82374; 82435; 82565; 82947; 83735; 84075; 84100; 84132; 84155; 84295; 84450; 84460; 84520; 85027

== ENCOUNTER → 2018-03-08 | Outpatient (REF) | payer MEDICARE ==
[2018-02-16 10:31] VITALS: BMI 16.6
== END ==
LOC: ZZSENDIN 15:04
PROVIDERS: ATTEND Surgery
DX: Z78.9 Other specified health status (principal)
CPT/HCPCS: 82040; 82247; 82310; 82374; 82435; 82565; 82947; 83735; 84075; 84100; 84132; 84155; 84295; 84450; 84460; 84520; 85027

== ENCOUNTER → 2018-03-18 | Outpatient (REF) | payer MEDICARE ==
[2018-02-16 10:31] VITALS: BMI 16.6
== END ==
LOC: ZZSENDIN 13:27
PROVIDERS: ATTEND Surgery
DX: Z78.9 Other specified health status (principal)
CPT/HCPCS: 82040; 82247; 82310; 82374; 82435; 82565; 82947; 83735; 84075; 84100; 84132; 84155; 84295; 84450; 84460; 84520; 85027

== ENCOUNTER → 2018-03-25 | Outpatient (REF) | payer MEDICARE ==
[2018-02-16 10:31] VITALS: BMI 16.6
== END ==
LOC: ZZSENDIN 17:05
PROVIDERS: ATTEND Surgery
DX: I10 Essential (primary) hypertension (principal); Z78.9 Other specified health status
CPT/HCPCS: 82040; 82247; 82310; 82374; 82435; 82565; 82947; 83735; 84075; 84100; 84132; 84155; 84295; 84450; 84460; 84520; 85027

== ENCOUNTER → 2018-03-31 | Outpatient (REF) | payer MEDICARE ==
[2018-02-16 10:31] VITALS: BMI 16.6
== END ==
LOC: ZZSENDIN 14:47
PROVIDERS: ATTEND Surgery
DX: R94.5 Abnormal results of liver function studies (principal); Z78.9 Other specified health status
CPT/HCPCS: 36415; 82040; 82247; 82310; 82374; 82435; 82565; 82947; 83735; 84075; 84100; 84132; 84155; 84295; 84450; 84460; 84520; 85027

== ENCOUNTER → 2018-04-08 | Outpatient (REF) | payer MEDICARE ==
[2018-02-16 10:31] VITALS: BMI 16.6
== END ==
LOC: ZZSENDIN 12:25
PROVIDERS: ATTEND Surgery
DX: R94.5 Abnormal results of liver function studies (principal); Z78.9 Other specified health status
CPT/HCPCS: 82040; 82247; 82248; 82310; 82374; 82435; 82565; 82947; 83735; 84075; 84100; 84132; 84155; 84295; 84450; 84460; 84520; 85027

== ENCOUNTER → 2018-04-15 | Outpatient (REF) | payer MEDICARE ==
[2018-02-16 10:31] VITALS: BMI 16.6
== END ==
LOC: ZZSENDIN 12:17
PROVIDERS: ATTEND Urology
DX: R30.0 Dysuria (principal); N39.0 Urinary tract infection, site not specified
CPT/HCPCS: 81001; 87088

== ENCOUNTER → 2018-04-21 | Outpatient (REF) | payer MEDICARE ==
[2018-02-16 10:31] VITALS: BMI 16.6
[~2018-04-21] MED LIST changes: +OSE75 PO
== END ==
LOC: ZZSENDIN 16:53
PROVIDERS: ATTEND Surgery
DX: R94.5 Abnormal results of liver function studies (principal)
CPT/HCPCS: 82040; 82247; 82248; 84075; 84155; 84450; 84460

== ENCOUNTER 2018-04-22 13:49 | Inpatient (IN) | payer MEDICARE ==
[~2018-04-22] VITALS: Ht 157.5 cm; Wt 43.6 kg
[~2018-04-22 13:49] MED LIST changes: -OSE75 PO; -PRED20TA6 PO
[2018-04-22] MEDS ORDERED: NS(*) 0.9% 500 ML BAG 500 ML IV ONE (13:57)
--- NOTE | 2018-04-22 13:59 | ER Report ---
History and Physical Time Seen By MD: 13:52 Hx. of Stated Complaint: SICK SINCE THURSDAY. DEVELPED A WET COUGH, INCREASED SOB, COULD NOT GET SATS ABOVE 80% PT ARRIVED ON 15L NON REBREATHER. HPI/ROS CHIEF COMPLAINT: Shortness of breath HISTORY OF PRESENT ILLNESS: This is a 77-year-old female presents to the emergency department via EMS for shortness of breath. Patient has a long- standing history of COPD, she states that over the last 1-2 days she's had increased shortness of breath, she been using her nebulizers more frequently, she does use oxygen 24 7, she states that she's also had aches and chills, no nausea or vomiting. Denies chest pain. EMS did provide one DuoNeb and route, patient arrived on a nonrebreather. Upon arrival patient is working hard to breathe, sitting erect, using accessory muscles including supraclavicular retractions. Denies headaches. Denies rashes. REVIEW OF SYSTEMS: Constitutional: As above. Eyes: No discharge. ENT: No sore throat. Cardiovascular: No chest pain, no palpitations. Respiratory: As above. Gastrointestinal: No abdominal pain, no vomiting. Genitourinary: No hematuria. Musculoskeletal: No back pain. Skin: No rashes. Neurological: No headache. Allergies: Coded Allergies: banana (Verified Allergy, Severe, ITCHING EYES, EARS, THROAT AND BODY, 02/15/18) honey (Verified Allergy, Severe, ITCHING ALL OVER, 02/15/18) iodine (Verified Allergy, Severe, HIVES AND ITCHING ALL OVER, DIZZINES, 02/15/18) morphine (Verified Allergy, Severe, BACK ACHES, 02/15/18) Dzfihhh-Ytm-Iin Reductase Inhibitor (Verified Allergy, Intermediate, MUSCLE CRAMPING, 02/15/18) milk (Verified Allergy, Intermediate, BLOATING REALLY BAD, 02/15/18) latex (Verified Allergy, Mild, BECAUSE SHE ITCHES IN HER EARS WITH BANANAS, 02/15/18) strawberry (Verified Allergy, Mild, ITCHING, 02/15/18) hydromorphone (Verified Adverse Reaction, Unknown, 02/15/18) causes generalized itching Uncoded Allergies: IODINE SALT (Allergy, Severe, ITCHING ALL OVER, 08/07/14) Home Meds Active Scripts Gabapentin (GABAPENTIN) 300 Mg Capsule, 600 MG PO BID for 30 Days, #60 CAPSULE Prov:ADRIAN STALEY DO 02/22/18 Oxycodone Hcl/Acetaminophen (OXYCODONE-ACETAMINOPHEN 5-325) 1 Each Tablet, 1 TAB PO Q4H PRN for PAIN, #20 TAB Prov:SHANNON MILLER DO 10/17/17 Reported Medications Sulfamethoxazole/Trimet 800-160 Mg Tab (BACTRIM DS TABLET) 1 Each Tablet, 1 TAB PO Q12H for 4 Days, TAB 04/22/18 Oseltamivir Phosphate (TAMIFLU) 75 Mg Cap, 75 MG PO, CAP on a 5 day course. started on 04/19/18 04/22/18 Tramadol Hcl (TRAMADOL HCL) 50 Mg Tablet, 50-100 MG PO Q8H 02/22/18 Phenazopyridine Hcl (PHENAZOPYRIDINE HCL) 200 Mg Tablet, 200 MG PO TID PRN for BURNING WITH URINATION, #30 TAB 09/28/17 Pantoprazole Sodium (PANTOPRAZOLE SODIUM) 40 Mg Tablet.dr, 40 MG PO QDAY, #90 TAB.SR 02/19/17 Melatonin (MELATONIN) 3 Mg Tablet, 2 TAB PO PRN 02/17/17 Albuterol Sulfate 0.083% (ALBUTEROL SULFATE 0.083%) 2.5 Mg/3 Ml Vial.neb, 2.5 MG INH QID, INH 02/17/17 Albuterol Sulfate 90 Mcg/Act (PROAIR HFA 90 MCG/ACT) 8.5 Gm Hfa.aer.ad, 2-4 PUFF IH PRN, INHALER 02/17/17 Oxygen (OXYGEN) Inha, 2.5 L INH cont., L 04/24/15 Ropinirole Hcl (ROPINIROLE HCL) 0.5 Mg Tablet, 0.5 MG PO BID PRN for SPASMS take 1/2 tab 2-3 times a day as needed for leg cramps 11/21/13 Aspirin (ASPIRIN) 81 Mg Tab.chew, 81 MG PO QDAY, TAB.CHEW TAKE 1 TABLET BY MOUTH EVERY DAY 11/21/13 Discontinued Reported Medications Ca Carbonate/Vitamin D3/Vit K (VIACTIV SOFT CHEW TABLET) 1 Each Tab.chew, 1 EACH PO DAILY, TAB.CHEW 10/29/14 Cholecalciferol (Vitamin D3) (VITAMIN D) 2,000 Unit Capsule, 2000 UNIT PO DAILY, CAPSULE 12/14/13 Ascorbic Acid (VITAMIN C) 250 Mg Tablet, 250 MG PO QDAY 11/21/13 [place]-3 Fatty Acids (FISH OIL) 300 Mg Capsule, 300 MG PO QDAY, CAPSULE 11/21/13 Past Medical/Surgical History The patient has a past medical and surgical history of hypertension, hypercholesterolemia, asthma, pneumonia, continuous oxygen use, COPD, GERD, urinary stent placed, urinary tract infections, arthritis, osteoporosis, ankle fracture, sciatica, wears dentures, wears glasses, ear surgery, hearing loss, anemia, abdominal surgery, appendectomy, multiple: Resections, colostomy, bowel perforations, cataract surgery. Reviewed Nurses Notes: Yes Hx Smoking: Yes (SMOKED FOR 50 YEARS, 1 PPD quit 2009) Smoking Status: Former Smoker Exposure to Second Hand Smoke?: No Hx Substance Use Disorder: No Hx Alcohol Use: Yes ("not for a long time.") Constitutional Vital Sign - Last 24 Hours 04/22/18 04/22/18 04/22/18 04/22/18 13:49 13:51 13:54 14:00 Temp 99.0 Pulse ??? 113 Resp 28 B/P (MAP) 141/77 141/77 (98) 127/83 (98) Pulse Ox 90 O2 Delivery Non-Rebreather 04/22/18 04/22/18 04/22/18 04/22/18 14:01 14:15 14:19 14:30 Pulse 115 Resp 23 B/P (MAP) 121/69 (86) 93/80 (84) Pulse Ox 81 O2 Flow Rate 15.0 04/22/18 04/22/18 04/22/18 04/22/18 14:31 14:45 14:49 15:00 Pulse 109 B/P (MAP) 131/79 (96) 132/79 (96) FiO2 100.0 04/22/18 04/22/18 04/22/18 04/22/18 15:05 15:15 15:30 15:35 Pulse 108 109 Resp 23 18 B/P (MAP) 124/80 (95) 122/70 (87) Pulse Ox 96 82 04/22/18 04/22/18 15:42 15:47 Pulse 105 107 Resp 13 26 Pulse Ox 97 95 Physical Exam General Appearance: The patient is alert, has no immediate need for airway protection and no signs of toxicity, on nonrebreather, working hard to breathe, intercostal and supraclavicular retractions. Eyes: Pupils equal and round no pallor or injection. ENT, Mouth: Mucous membranes are dry. Respiratory: intercostal and supraclavicular retractions, rhonchi throughout, di minished lung sounds throughout. Cardiovascular: Regular rate and rhythm, no murmurs, clicks or rubs. Gastrointestinal: Abdomen is soft and non tender, no masses, bowel sounds normal. Neurological: Alert and oriented 4. Moving all studies. Following all commands. No focal neuro deficits. Skin: Warm and dry, no rashes. Musculoskeletal: Neck is supple non tender. Extremities are nontender, nonswollen and have full range of motion. DIFFERENTIAL DIAGNOSIS: After history and physical exam differential diagnosis was considered for shortness of breath including but not limited to pulmonary infectious process, COPD, asthma, pulmonary embolus and congestive heart failure. Medical Decision Making Data Points Result Diagram: 04/22/18 1419 04/22/18 1419 Laboratory Hematology Test 04/22/18 14:00 04/22/18 14:19 04/22/18 15:29 Influenza Virus Type A (PCR) Positive (NEGATIVE) Influenza Virus Type B (PCR) Negative (NEGATIVE) Red Blood Count 3.79 M/uL (4.17-5.56) Mean Corpuscular Volume 92.7 fL (80.0-96.0) Mean Corpuscular Hemoglobin 30.6 pg (26.0-33.0) Mean Corpuscular Hemoglobin Concent 33.0 g/dL (32.0-36.0) Red Cell Distribution Width 15.6 % (11.5-14.5) Mean Platelet Volume 8.1 fL (7.2-11.1) Neutrophils (%) (Auto) 65.0 % (39.4-72.5) Lymphocytes (%) (Auto) 25.9 % (17.6-49.6) Monocytes (%) (Auto) 7.7 % (4.1-12.4) Eosinophils (%) (Auto) 0.6 % (0.4-6.7) Basophils (%) (Auto) 0.8 % (0.3-1.4) Nucleated RBC Relative Count (auto) 0.0 /100WBC Neutrophils # (Auto) 5.9 K/uL (2.0-7.4) Lymphocytes # (Auto) 2.3 K/uL (1.3-3.6) Monocytes # (Auto) 0.7 K/uL (0.3-1.0) Eosinophils # (Auto) 0.1 K/uL (0.0-0.5) Basophils # (Auto) 0.1 K/uL (0.0-0.1) Nucleated RBC Absolute Count (auto) 0.00 K/uL Peripheral Blood Smear Yes Y/N Sodium Level 137 mmol/L (137-145) Potassium Level 3.8 mmol/L (3.5-5.0) Chloride Level 100 mmol/L (98-107) Carbon Dioxide Level 24 mmol/L (22-31) Blood Urea Nitrogen 12 mg/dl (7-18) Creatinine 0.80 mg/dl (0.52-1.04) Glomerular Filtration Rate Calc > 60.0 Random Glucose 71 mg/dl (75-110) Lactate 1.4 mmol/L (0.7-2.1) Calcium Level 9.2 mg/dl (8.4-10.2) Total Bilirubin 1.3 mg/dl (0.2-1.3) Aspartate Amino Transf (AST/SGOT) 104 U/L (0-35) Alanine Aminotransferase (ALT/SGPT) 91 U/L (0-56) Alkaline Phosphatase 255 U/L (0-126) Troponin I 0.541 ng/ml B-Type Natriuretic Peptide 106 pg/ml (0-100) Total Protein 7.1 g/dl (6.3-8.2) Albumin 3.6 g/dl (3.5-5.0) Blood Gas Puncture Site Right radial Blood Gas Patient Temperature 99 DEGREES Arterial Blood pH 7.42 (7.35-7.45) Arterial Blood Partial Pressure CO2 35 mmHg (32-37) Arterial Blood Partial Pressure O2 97 mmHg (60-80) Arterial Blood HCO3 22 mmol/L (20-26) Arterial Blood Oxygen Saturation 98 % (92-100) Arterial Blood Base Excess -2.0 mmol/L Edwin Test Acceptable Oxygen Liters/Minute 100 Chemistry Test 04/22/18 14:00 04/22/18 14:04/22/18 15:29 Influenza Virus Type A (PCR) Positive (NEGATIVE) Influenza Virus Type B (PCR) Negative (NEGATIVE) White Blood Count 9.0 k/uL (4.5-11.0) Red Blood Count 3.79 M/uL (4.17-5.56) Hemoglobin 11.6 g/dL (12.0-16.0) Hematocrit 35.2 % (34.0-47.0) Mean Corpuscular Volume 92.7 fL (80.0-96.0) Mean Corpuscular Hemoglobin 30.6 pg (26.0-33.0) Mean Corpuscular Hemoglobin Concent 33.0 g/dL (32.0-36.0) Red Cell Distribution Width 15.6 % (11.5-14.5) Platelet Count 584 K/uL (150-450) Mean Platelet Volume 8.1 fL (7.2-11.1) Neutrophils (%) (Auto) 65.0 % (39.4-72.5) Lymphocytes (%) (Auto) 25.9 % (17.6-49.6) Monocytes (%) (Auto) 7.7 % (4.1-12.4) Eosinophils (%) (Auto) 0.6 % (0.4-6.7) Basophils (%) (Auto) 0.8 % (0.3-1.4) Nucleated RBC Relative Count (auto) 0.0 /100WBC Neutrophils # (Auto) 5.9 K/uL (2.0-7.4) Lymphocytes # (Auto) 2.3 K/uL (1.3-3.6) Monocytes # (Auto) 0.7 K/uL (0.3-1.0) Eosinophils # (Auto) 0.1 K/uL (0.0-0.5) Basophils # (Auto) 0.1 K/uL (0.0-0.1) Nucleated RBC Absolute Count (auto) 0.00 K/uL Peripheral Blood Smear Yes Y/N Glomerular Filtration Rate Calc > 60.0 Lactate 1.4 mmol/L (0.7-2.1) Calcium Level 9.2 mg/dl (8.4-10.2) Total Bilirubin 1.3 mg/dl (0.2-1.3) Aspartate Amino Transf (AST/SGOT) 104 U/L (0-35) Alanine Aminotransferase (ALT/SGPT) 91 U/L (0-56) Alkaline Phosphatase 255 U/L (0-126) Troponin I 0.541 ng/ml B-Type Natriuretic Peptide 106 pg/ml (0-100) Total Protein 7.1 g/dl (6.3-8.2) Albumin 3.6 g/dl (3.5-5.0) Blood Gas Puncture Site Right radial Blood Gas Patient Temperature 99 DEGREES Arterial Blood pH 7.42 (7.35-7.45) Arterial Blood Partial Pressure CO2 35 mmHg (32-37) Arterial Blood Partial Pressure O2 97 mmHg (60-80) Arterial Blood HCO3 22 mmol/L (20-26) Arterial Blood Oxygen Saturation 98 % (92-100) Arterial Blood Base Excess -2.0 mmol/L Edwin Test Acceptable Oxygen Liters/Minute 100 EKG/Imaging EKG Interpretation 12 lead EKG: Time of EKG 1404. Rhythm: Sinus tachycardia, ventricular rate 111 bpm. [place]: normal QRS: normal ST segments: No ST depression or elevation identified, flattened T waves in V2, V3, lead 3. No significant changes from the 02/15/2018 EKG. Imaging Location: [facility] Patient: July : 1940 Visit/Account:[id number] Date of Sevice: 04/22/2018 CHEST SINGLE AP History: RESP DISTRESS FINDINGS: Comparison studies: February 17, 2017 Tubes and Lines: PICC line from left upper extremity approach unchanged Lungs and pleura: There has been interval development of subsegmental consolidation right lung base and interval development of several discoid opacities at the left lung base. There is a very subtle circumscribed oval 1 cm nodule in the right lung projecting over the posterior fifth rib Lung parenchyma is otherwise unremarkable Mediastinum: Prominent as ago esophageal soft tissue represents vascular structure accentuated by patient's rotation to the right Cardiac silhouette: normal . Osseous structures: Unremarkable for age . IMPRESSION: Interval development of right basilar atelectasis versus pneumonia and left basilar discoid atelectasis since the previous exam. Findings suspicious for a low-density 1 cm right pulmonary nodule. Consequently, consider follow-up chest CT for further evaluation. Report Dictated By: Te Storm MD at 04/22/2018 2:53 PM Report E-Signed By: Te Storm MD at 04/22/2018 2:59 PM WSN:[id number] ED Course/Re-evaluation Clinical Indication for ER IV: Hydration, IV Access ED Course The patient was admitted to room. A history and physical obtained. Differential diagnoses were considered. Upon bedside inspection, the patient was struggling to breathe, diminished lung sounds, was given a DuoNeb prior to arrival which per EMS did improve her breathing. However she is still struggling, intercostal and supraclavicular retractions. Sitting erect, with pursed lips. She was given another DuoNeb with minimal relief, did start her on BiPAP, 01/20., An IV was started. A CBC, CMP were obtained. 500 mils normal saline bolused.CBC showing platelets 584, chemistry showing AST 104, ALT 91, alk phosphatase 255, troponin 0.541, BNP 106, ABG showing pH 7.42, PCO2 35, P O2 97. I spoke with patient regarding her troponin and a transfer out, not our conversation below, she declined a transfer. I do believe that the elevated troponin is secondary to influenza, COPD heart strain. Single view chest x-ray showing Interval development of right basilar atelectasis versus pneumonia. The white count, no document a fever here, will not treat with antibiotics at this time, this was discussed with the hospitalist, Dr. leti Solis still, he is at some the patient in the hospitalist services, the patient will be amended to the ICU on BiPAP. The patient is agreeable with the admission. Patient is doing much better on BiPAP, she states she feels much better and is not working so hard to breathe. 04/22/2018 3:25:30 pm I did speak with the patient regarding the elevated troponin, patient continues to deny chest pain, she states she has not had chest pain over the last several days. Did tell her that although she's not had chest pain this does indicate that her heart has been under stress, I did talk to the patient about what the elevated troponin could indicate, talk to her about trans ferring to another facility that could monitor her more closely should she need interventional cardiology, patient declined transferring to another facility, she states she would rather stay at this hospital. The patient's was at bedside as well. 04/22/2018 3:40:[address] pm to speak with Dr. dom Solis still, the hospital. Call, he is accepting the patient in the ICU for COPD exacerbation, influenza a an elevated troponin. Decision to Disposition Date: Apr 22, 2018 Decision to Disposition Time: 15:40 Depart Departure Latest Vital Signs Vital Signs Date Time Temp Pulse Resp B/P (MAP) Pulse Ox O2 Delivery O2 Flow Rate FiO2 04/22/18 15:47 107 26 95 04/22/18 15:30 122/70 (87) 04/22/18 14:31 100.0 04/22/18 14:01 15.0 04/22/18 13:51 99.0 Non-Rebreather Impression: Primary Impression: COPD exacerbation Additional Impressions: Influenza A Elevated troponin Condition: Improved Disposition: Admitted from ER Referrals: EUN ARCHULETA DO (PCP) Problem Qualifiers SHANNON MENDEZ IT DIRECTOR-BC Apr 22, 2018 13:59
[2018-04-22] MEDS ORDERED: ALBUTEROL/IPRATROPIUM 3 ML NEB NEB ONE (14:00)
[2018-04-22] MEDS ORDERED: methylPREDNIS SUCC 125 MG/2ML IVP ONE (14:00)
[2018-04-22 14:32] LABS: PLATELET COUNT, AUTOMATED 584 K/uL (150-450)
--- NOTE | 2018-04-22 14:47 | EKG ---
FACILITY: [facility] [place] PATIENT NAME: CARL RUSSO : [id number] MR: [id number] V: [id number] EXAM DATE: ORDERING PHYSICIAN: SHANNON MENDEZ TECHNOLOGIST: SRIDHAR Test Reason : LOW O2 AT HOME Blood Pressure : / mmHG Vent. Rate : 111 BPM Atrial Rate : 111 BPM P-R Int : 114 ms QRS Dur : 068 ms QT Int : 324 ms P-R-T Axes : 071 059 040 degrees QTc Int : 440 ms Sinus tachycardia Low voltage QRS Borderline ECG When compared with ECG of 15-FEB-2018 19:35, Borderline criteria for Anterolateral infarct are no longer present Confirmed by Thomas Gomez ([id number]) on 04/22/2018 10:18:46 PM Referred By: DAVID Confirmed By:Thomas Fox
--- NOTE | 2018-04-22 15:03 | RADIOLOGY IMAGING REPORT ---
FACILITY: [facility] [place] PATIENT NAME: Pamela Correa : 1940 MR: [id number] V: [id number] EXAM DATE: ORDERING PHYSICIAN: SHANNON MENDEZ TECHNOLOGIST: [place] [facility] [place]ela Correa : 1940 Visit/Account:[id number] Date of Sevice: 04/22/2018 CHEST SINGLE AP History: RESP DISTRESS FINDINGS: Comparison studies: February 17, 2017 Tubes and Lines: PICC line from left upper extremity approach unchanged Lungs and pleura: There has been interval development of subsegmental consolidation right lung base and interval development of several discoid opacities at the left lung base. There is a very subtle circumscribed oval 1 cm nodule in the right lung projecting over the posterior fifth rib Lung parenc hyma is otherwise unremarkable Mediastinum: Prominent as ago esophageal soft tissue represents vascular structure accentuated by pa tient's rotation to the right Cardiac silhouette: normal . Osseous structures: Unremarkable for age . IMPRESSION: Interval development of right basilar atelectasis versus pneumonia and left basilar discoid atelect asis since the previous exam. Findings suspicious for a low-density 1 cm right pulmonary nodule. Consequently, consider follow-up chest CT for further evaluation. Report Dictated By: Te Storm MD at 04/22/2018 2:53 PM Report E-Signed By: Te Storm MD at 04/22/2018 2:59 PM WSN:[id number]
[2018-04-22] MEDS ORDERED: OSE75 PO (15:56)
[2018-04-22] MEDS ORDERED: SULF-198 PO (15:56)
[2018-04-22 17:20] VITALS: BP 121/79
--- NOTE | 2018-04-22 18:03 | NUR ---
Pt states to me that she is a DNR " it should be in my chart". Dr. Robel Licea advised
[2018-04-22] MEDS ORDERED: NS(*) 0.9% 1000 ML BAG 1,000 ML IV PRN (18:05)
[2018-04-22] MEDS ORDERED: FLUSH 10 ML SYR IVP PRN (18:05)
[2018-04-22] MEDS: LEVOFLOXACIN/D5W 750 MG/150 ML 150 ML IVPB SCH (19:23)
[2018-04-22 19:45] VITALS: BP 102/59
[2018-04-22] MEDS ORDERED: MELATONIN 3 MG TAB PO PRN (19:45)
[2018-04-22 20:00] VITALS: BP 116/62
--- NOTE | 2018-04-22 20:06 | History & Physical ---
History of Present Illness Chief Complaint dyspnea History of Present Illness 77F presented with worsening dyspnea. PMHx significant for COPD, chronic pain, ileostomy. Diagnosed with influenza and started on Tamiflu 4 days ago. Reports worsening breathing over last 2 days and today called EMS as she couldnt catch her breath. Noted to be hypoxic requiring more than 2.5L baseline and using accessory muscles to breath. Troponin elevated 0.54 but she declined transfer to facility with cardiology. Placed on BiPAP to decrease work of breathing and admitted to ICU. History Problems: (1) Chronic pain Status: Chronic (2) COPD (chronic obstructive pulmonary disease) Status: Chronic (3) Enterovesical fistula Status: Chronic (4) HTN (hypertension) Status: Chronic Home Meds Active Scripts Gabapentin (GABAPENTIN) 300 Mg Capsule, 600 MG PO BID for 30 Days, #60 CAPSULE Prov:ADRIAN STALEY DO 02/22/18 Oxycodone Hcl/Acetaminophen (OXYCODONE-ACETAMINOPHEN 5-325) 1 Each Tablet, 1 TAB PO Q4H PRN for PAIN, #20 TAB Prov:SHANNON MILLER DO 10/17/17 Reported Medications Sulfamethoxazole/Trimet 800-160 Mg Tab (BACTRIM DS TABLET) 1 Each Tablet, 1 TAB PO Q12H for 4 Days, TAB 04/22/18 Oseltamivir Phosphate (TAMIFLU) 75 Mg Cap, 75 MG PO, CAP on a 5 day course. started on 04/19/18 04/22/18 Tramadol Hcl (TRAMADOL HCL) 50 Mg Tablet, 50-100 MG PO Q8H 02/22/18 Phenazopyridine Hcl (PHENAZOPYRIDINE HCL) 200 Mg Tablet, 200 MG PO TID PRN for BURNING WITH URINATION, #30 TAB 09/28/17 Pantoprazole Sodium (PANTOPRAZOLE SODIUM) 40 Mg Tablet.dr, 40 MG PO QDAY, #90 TAB.SR 02/19/17 Melatonin (MELATONIN) 3 Mg Tablet, 2 TAB PO PRN 02/17/17 Albuterol Sulfate 0.083% (ALBUTEROL SULFATE 0.083%) 2.5 Mg/3 Ml Vial.neb, 2.5 MG INH QID, INH 02/17/17 Albuterol Sulfate 90 Mcg/Act (PROAIR HFA 90 MCG/ACT) 8.5 Gm Hfa.aer.ad, 2-4 PUFF IH PRN, INHALER 02/17/17 Oxygen (OXYGEN) Inha, 2.5 L INH cont., L 04/24/15 Ropinirole Hcl (ROPINIROLE HCL) 0.5 Mg Tablet, 0.5 MG PO BID PRN for SPASMS take 1/2 tab 2-3 times a day as needed for leg cramps 11/21/13 Aspirin (ASPIRIN) 81 Mg Tab.chew, 81 MG PO QDAY, TAB.CHEW TAKE 1 TABLET BY MOUTH EVERY DAY 11/21/13 Discontinued Reported Medications Ca Carbonate/Vitamin D3/Vit K (VIACTIV SOFT CHEW TABLET) 1 Each Tab.chew, 1 EACH PO DAILY, TAB.CHEW 12/14/13 Cholecalciferol (Vitamin D3) (VITAMIN D) 2,000 Unit Capsule, 2000 UNIT PO DAILY, CAPSULE 12/14/13 Ascorbic Acid (VITAMIN C) 250 Mg Tablet, 250 MG PO QDAY 11/21/13 [place]-3 Fatty Acids (FISH OIL) 300 Mg Capsule, 300 MG PO QDAY, CAPSULE 11/21/13 Allergies: Coded Allergies: banana (Verified Allergy, Severe, ITCHING EYES, EARS, THROAT AND BODY, 02/15/18) honey (Verified Allergy, Severe, ITCHING ALL OVER, 02/15/18) iodine (Verified Allergy, Severe, HIVES AND ITCHING ALL OVER, DIZZINES, 02/15/18) morphine (Verified Allergy, Severe, BACK ACHES, 02/15/18) Lorosbg-Ztg-Uwy Reductase Inhibitor (Verified Allergy, Intermediate, MUSCLE CRAMPING, 02/15/18) milk (Verified Allergy, Intermediate, BLOATING REALLY BAD, 02/15/18) latex (Verified Allergy, Mild, BECAUSE SHE ITCHES IN HER EARS WITH BANANAS, 02/15/18) strawberry (Verified Allergy, Mild, ITCHING, 02/15/18) hydromorphone (Verified Adverse Reaction, Unknown, 02/15/18) causes generalized itching Uncoded Allergies: IODINE SALT (Allergy, Severe, ITCHING ALL OVER, 08/07/14) Patient History: FH: dementia MOTHER, Onset:60 years & older ( AT AGE 92 ) FH: diabetic complications CHILD FH: liver cancer BROTHER OR SISTER, Onset:60 years & older FH: stroke CHILD, Onset:51 CHILD Hx Smoking: Yes (SMOKED FOR 50 YEARS, 1 PPD quit 2009) Smoking Status: Former Smoker Exposure to Second Hand Smoke?: No Caffeine Intake: Coffee Caffeine/Cups Per Day: very occ Hx Alcohol Use: Yes ("not for a long time.") Hx Substance Use Disorder: No Social Drug Use: Never Review of Systems All Systems Reviewed/Normal: Yes, Except as Noted Respiratory: Shortness of Breath Exam Vital Signs Vital Signs Date Time Temp Pulse Resp B/P (MAP) Pulse Ox O2 Delivery O2 Flow Rate FiO2 04/22/18 18:37 98 Bi-PAP 15.0 80.0 04/22/18 17:20 99.0 95 23 121/79 (93) General Appearance: Awake, Afebrile (moderate respiratory distress) Neuro: No Gross deficits ENT: Normal Cardiovascular: Normal Rhythm & Peripheral Pulses Respiratory: Other (wheezing, on BiPAP) GI: Abd Soft and Non-Tender Extremities: Soft and Non Tender, Warm, Pulses, Perfused Medical Decision Making Data Points Result Diagram: 04/22/18 1419 04/22/18 1419 EKG / Imaging EKG Interpretation No ST segment elevation Assessment and Plan Problems: (1) Demand ischemia Assessment & Plan: Secondary to influenza, hypoxia and increased work of breathing. No ST changes on EKG, will trend troponin. (2) Influenza A Status: Acute Assessment & Plan: On Tamiflu renally dosed. (3) Acute and chronic respiratory failure with hypoxia Assessment & Plan: Baseline 2.5 L , CXR shows possible infiltrate vs atelectasis, afebrile with no increase in WBC. Will add empiric levofloxacin given the severity of her exacerbation and preexisting COPD. PRN Duoneb and albuterol, IV methylprednisolone. (4) COPD (chronic obstructive pulmonary disease) Status: Chronic Assessment & Plan: Baseline 2.5L. (5) Chronic pain Status: Chronic Assessment & Plan: Continue chronic tramadol. Central Venous Access Medical Necessity for Access: IV Access, Medication Administration Venous Thromboembolism Antithrombotics Is Pt On Any Antithrombotics?: Yes Exam Sepsis Risk: Possible Sepsis Risk ADRIAN STALEY DO Apr 22, 2018 20:06
[2018-04-22] MEDS: OSELTAMIVIR PHOS 30 MG CAP PO SCH (20:17)
[2018-04-22] MEDS: traMADol 50 MG TAB PO PRN (20:26)
[2018-04-22] MEDS: GABAPENTIN 300 MG CAP PO SCH (20:26)
[2018-04-22 21:00] VITALS: BP 122/66
[2018-04-22] MEDS: ACETAMINOPHEN 325 MG TAB PO PRN (21:03)
[2018-04-22] MEDS ORDERED: SALINE 0.65% NAS SPR 44 ML BTL PRN (21:50)
[2018-04-22 22:00] VITALS: BP 102/69
[2018-04-22 23:00] VITALS: BP 84/69
[2018-04-23] VITALS (19 sets, daily range): BP systolic 105–150; BP diastolic 59–103
[2018-04-23] MEDS: methylPREDNIS SUCC 125 MG/2ML IVP SCH ×3 (00:22→17:28)
[2018-04-23 05:22] LABS: PLATELET COUNT, AUTOMATED 463 K/uL (150-450)
[2018-04-23] MEDS: ACETAMINOPHEN 325 MG TAB PO PRN (06:11)
[2018-04-23] MEDS: traMADol 50 MG TAB PO PRN ×2 (06:11→22:17)
[2018-04-23] MEDS ORDERED: ENOXAPARIN 30 MG/0.3 ML SYR SC SCH (09:00)
[2018-04-23] MEDS: GABAPENTIN 300 MG CAP PO SCH ×2 (09:39→20:40)
[2018-04-23] MEDS: oxyCODONE HCL 5 MG CAP PO PRN ×2 (09:39→18:38)
[2018-04-23] MEDS: OSELTAMIVIR PHOS 30 MG CAP PO SCH ×2 (09:39→20:40)
[2018-04-23] MEDS: ASPIRIN 81 MG ENTERIC COATED PO SCH (09:39)
[2018-04-23] MEDS: PANTOPRAZOLE SOD 40 MG TABEC PO SCH (09:39)
[2018-04-23] MEDS: ENOXAPARIN 40 MG/0.4ML SYR SC SCH (09:40)
--- NOTE | 2018-04-23 10:12 | RADIOLOGY IMAGING REPORT ---
FACILITY: [facility] [place] PATIENT NAME: Pamela Correa : 1940 MR: [id number] V: [id number] EXAM DATE: ORDERING PHYSICIAN: MALLORY BLOCK TECHNOLOGIST: Location: [facility] Patient: Pamela Correa : 1940 Visit/Account:[id number] Date of Sevice: 04/23/2018 Portable chest, one view. HISTORY: Influenza. COMPARISON: 04/22/2018. EKG leads project on the chest. A left upper extremity PICC tip projects on the superior cavoatrial junction. The heart size is normal. The thoracic aorta is mildly elongated. Central pulmonary vess els are mildly prominent. The thoracic aorta is elongated. The lungs are voluminous. Streaky densi ties are present in the left lower lung and right lung base, unchanged. The right lung apex is parti ally obscured by the patient's head. The pleural surfaces are otherwise unremarkable. Severe arthri tic changes are present in the right shoulder. A rounded density projects on the lower chest suggest ing a hiatal hernia. IMPRESSION: COPD. Bilateral subsegmental atelectasis and/or pleural parenchymal scars, unchanged. Report Dictated By: Arnoldo Elizabeth MD at 04/23/2018 10:04 AM Report E-Signed By: Arnoldo Elizabeth MD at 04/23/2018 10:07 AM WSN:[email or web address]
--- NOTE | 2018-04-23 14:10 | NUR ---
Physical Therapy Impression Recommend use of EZ lift with 2 people for future transfers with nursing. BP did increase with this activity and pt reports slight dizziness. Nursing alerted that pt would like to only remain up in chair for 10-15 minutes. Therapy will remain available to assist with pt back to bed if needed. Physical Therapy Goals 1. Pt to be Min/CGA for [id number]-poqm-tykjw transfers to/from a variety of surfaces with improved balance and use of FWW 2. Pt to be CGA/SBA for bed mobility and supine <> sit transfers 3. Pt to ambulate x 15' with CGA and FWW Patient's Goals
--- NOTE | 2018-04-23 14:19 | Hospitalist Progress Note ---
Subjective Progress Notes Subjective The patient states she is feeling poorly. Physical Exam Vital Signs Date Time Temp Pulse Resp B/P (MAP) Pulse Ox O2 Delivery O2 Flow Rate FiO2 04/23/18 13:00 93 27 132/74 (93) 90 Nasal Cannula 6.0 04/23/18 11:47 98.2 04/22/18 22:00 55.0 Intake and Output 04/23/18 06:59 Intake Total 910 ml Balance 910 ml Intake Oral 360 ml IV Total 550 ml # Voids 2 General Appearance: Alert, Awake, Other (Mild increased work of breathing.) Cardiovascular: Regular Rate and Rhythm Respiratory: Other (Bibasilar crackles.) GI: Soft and Non-Tender, Other (Colostomy bag in place with minimal output.) Extremities: Warm, Perfused Psych: Appropriate Mood & Affect Result Diagram: 04/23/18 0502 04/23/18 0502 Assessment and Plan Problems: (1) Demand ischemia Assessment & Plan: Secondary to influenza, hypoxia and increased work of rosie athing. No ST changes on EKG, troponin trending downward. (2) Influenza A Status: Acute Assessment & Plan: On Tamiflu renally dosed. (3) Acute and chronic respiratory failure with hypoxia Assessment & Plan: Baseline 2.5 L , CXR shows possible infiltrate vs atelectasis, afebrile with no increase in WBC. Will add empiric levofloxacin given the severity of her exacerbation and preexisting COPD. PRN Duoneb and albuterol, IV methylprednisolone. Repeat CXR 04/23 continues to show atelectasis without definite infiltrate. Continue current care. (4) COPD (chronic obstructive pulmonary disease) Status: Chronic Assessment & Plan: Baseline 2.5L. (5) Chronic pain Status: Chronic Assessment & Plan: Continue chronic tramadol. She does also use oxycodone prn for severe pain. Will add. Central Venous Access Medical Necessity for Access: IV Access, Medication Administration Time Spent on Plan of Care: < 30 min Exam Sepsis Risk: No Definite Risk MALLORY BLOCK MD Apr 23, 2018 14:19
--- NOTE | 2018-04-23 14:25 | NUR ---
Occupational Therapy Impression OT evaluation completed with PT. Pt. would benefit from OT services 5 x/ week to increase independence in ADL's. Occupational Therapy Goals 1. Pt. to perform dressing activities with Min A. 2. Pt. to perform showering activities with Min A. 3. Pt. to perform toileting activities with Min A. 4. Pt. to perform grooming activities with I. Patient's Goal
[2018-04-23] MEDS: NS(*) 0.9% 1000 ML BAG 1,000 ML IV PRN (20:39)
[2018-04-23] MEDS: ALBUTEROL/IPRATROPIUM 3 ML NEB NEB PRN (22:30)
[2018-04-24] MEDS: methylPREDNIS SUCC 125 MG/2ML IVP SCH ×3 (01:37→17:11)
[2018-04-24 02:43] VITALS: BP_SYST 143; BP_SYST 144; BP_DIAS 69; BP_DIAS 74
[2018-04-24] MEDS: ACETAMINOPHEN 325 MG TAB PO PRN ×2 (03:11→13:00)
[2018-04-24] MEDS: NS(*) 0.9% 1000 ML BAG 1,000 ML IV PRN (04:38)
[2018-04-24] MEDS: oxyCODONE HCL 5 MG CAP PO PRN (06:12)
[2018-04-24 06:18] LABS: PLATELET COUNT, AUTOMATED 435 K/uL (150-450)
[2018-04-24 07:22] VITALS: BP 122/81
[2018-04-24] MEDS: PANTOPRAZOLE SOD 40 MG TABEC PO SCH (09:06)
[2018-04-24] MEDS: ENOXAPARIN 40 MG/0.4ML SYR SC SCH (09:06)
[2018-04-24] MEDS: GABAPENTIN 300 MG CAP PO SCH ×2 (09:06→21:05)
[2018-04-24] MEDS: ASPIRIN 81 MG ENTERIC COATED PO SCH (09:06)
[2018-04-24] MEDS: OSELTAMIVIR PHOS 30 MG CAP PO SCH ×2 (09:07→21:06)
[2018-04-24] MEDS ORDERED: NS(*) 0.9% 1000 ML BAG 1,000 ML IV PRN (09:46)
[2018-04-24 10:14] VITALS: BP 154/101
[2018-04-24] MEDS: traMADol 50 MG TAB PO PRN ×2 (10:46→23:15)
--- NOTE | 2018-04-24 12:46 | Hospitalist Progress Note ---
Subjective Progress Notes Subjective She reports "maybe a little better". Physical Exam Vital Signs Date Time Temp Pulse Resp B/P (MAP) Pulse Ox O2 Delivery O2 Flow Rate FiO2 04/24/18 10:14 99.1 97 20 154/101 (118) 99 Nasal Cannula 5.0 04/22/18 22:00 55.0 Intake and Output 04/24/18 06:59 Intake Total 1154 ml Output Total 150 ml Balance 1004 ml Intake Oral 150 ml IV Total 1004 ml Output Stool Total 150 ml # Voids 2 # Bowel Movements 1 General Appearance: Alert, Awake Cardiovascular: Regular Rate and Rhythm Respiratory: Other (few rales at bases) Chest: No Tenderness GI: Soft and Non-Tender Extremities: Warm, Perfused Psych: Alert & Oriented X3 Result Diagram: 04/24/1852204/24/18522 Assessment and Plan Problems: (1) Demand ischemia Status: Acute Assessment & Plan: Possible (vs. primary cardiac event). Due to influenza, hypoxia. No ST changes on EKG, troponin trending downward. (2) Influenza A Status: Acute Assessment & Plan: On Tamiflu renal dosed. (3) COPD (chronic obstructive pulmonary disease) Status: Chronic Assessment & Plan: Some improvements clinically. Continue respiratory treatments, supplemental oxygen, steroids. Baseline 2.5L. (4) Chronic pain Status: Chronic Assessment & Plan: Continue chronic tramadol. She does also use oxycodone prn for severe pain. Central Venous Access Medical Necessity for Access: IV Access, Medication Administration Exam Sepsis Risk: No Definite Risk ASHLEY BLOCK MD Apr 24, 2018 12:46
[2018-04-24] MEDS: ALBUTEROL/IPRATROPIUM 3 ML NEB NEB PRN (13:54)
--- NOTE | 2018-04-24 14:50 | NUR ---
Physical Therapy Impression While reluctant to get out of bed, pt. was agreeable to sitting EOB and completed ther ex and neuro re-ed activities with good tolerance. SpO2 and HR remained stable throughout exercise and pt. is able to maintain seated balance with verbal cuing and SBA. Physical Therapy Goals 1. Pt to be Min/CGA for [id number]-okhh-[id number] transfers to/from a variety of surfaces with improved balance and use of FWW 2. Pt to be CGA/SBA for bed mobility and supine <> sit transfers 3. Pt to ambulate x 15' with CGA and FWW Patient's Goals
[2018-04-24 15:18] VITALS: BP 130/74
--- NOTE | 2018-04-24 16:16 | Antimicrobial Stewardship ---
Antimicrobial Time Out Antimicrobial Stewardship MD Service: Hospitalist Indications: CAP Antimicrobial Used LEVAQUIN 750MG Q48H, TAMIFLU 30MG BID Start Date: Apr 22, 2018 Culture Results: No Eligible for PO Conversion Eligable for PO Conversion: Yes Reviewed with Provider Reviewed w/ Provider on Rounds: No Comments Comments Patient is on Tamiflu 30mg BID renal dosing based on positive influenza test. Levaquin 750mg Q48h for renal dosing was also added for possible consolidation in lungs. Complete 5 days of tamiflu and reevaluate the need for levaquin based on subsequent imaging of lungs. Patient remains afebrile and WBC is within normal range. JOSE IVORY Apr 24, 2018 16:16
[2018-04-24 18:58] VITALS: BP 115/61
[2018-04-24] MEDS: LEVOFLOXACIN/D5W 750 MG/150 ML 150 ML IVPB SCH (19:29)
[2018-04-24] MEDS: ALBUTEROL 2.5 MG/3 ML NEB NEB PRN (21:31)
[2018-04-24 22:28] VITALS: BP 121/62
[2018-04-25] MEDS: methylPREDNIS SUCC 125 MG/2ML IVP SCH ×3 (00:31→17:14)
[2018-04-25 01:49] VITALS: BP 144/32
[2018-04-25] MEDS: oxyCODONE HCL 5 MG CAP PO PRN (01:59)
[2018-04-25] MEDS: ALBUTEROL 2.5 MG/3 ML NEB NEB PRN ×2 (03:11→21:08)
[2018-04-25 06:34] LABS: PLATELET COUNT, AUTOMATED 446 K/uL (150-450)
[2018-04-25 07:07] VITALS: BP 124/84
[2018-04-25] MEDS: GABAPENTIN 300 MG CAP PO SCH ×2 (09:20→20:16)
[2018-04-25] MEDS: ENOXAPARIN 40 MG/0.4ML SYR SC SCH (09:20)
[2018-04-25] MEDS: PANTOPRAZOLE SOD 40 MG TABEC PO SCH (09:21)
[2018-04-25] MEDS: ASPIRIN 81 MG ENTERIC COATED PO SCH (09:21)
[2018-04-25] MEDS: OSELTAMIVIR PHOS 30 MG CAP PO SCH ×2 (09:23→20:16)
--- NOTE | 2018-04-25 10:52 | Hospitalist Progress Note ---
Subjective Progress Notes Subjective This patient was admitted for influenza. She had no acute events overnight. Patient Complains of: Cardiovascular: No: Chest Pain Respiratory: No: Shortness of Breath Physical Exam Vital Signs Date Time Temp Pulse Resp B/P (MAP) Pulse Ox O2 Delivery O2 Flow Rate FiO2 04/25/18 07:07 98.0 83 18 124/84 (97) 98 Nasal Cannula 4.0 04/22/18 22:00 55.0 Intake and Output 04/25/18 07:00 Intake Total 630 ml Output Total 250 ml Balance 380 ml Intake Oral 100 ml IV Total 530 ml Output Stool Total 250 ml # Voids 1 # Bowel Movements 3 Cardiovascular: Regular Rate and Rhythm Respiratory: Clear to Auscultation Result Diagram: 04/25/18 0546 04/25/1846 Assessment and Plan Problems: (1) Influenza A Status: Acute Assessment & Plan: She did test positive for influenza A. She has been started on Tamiflu. (2) Demand ischemia Status: Acute Assessment & Plan: Her troponin was elevated on admission, but has been trending down. Her EKG did not show any ischemic changes and she has not complained of chest pain. She is on aspirin. (3) COPD (chronic obstructive pulmonary disease) Status: Chronic Assessment & Plan: She is receiving nebulizers and IV steroids. (4) Chronic pain Status: Chronic Assessment & Plan: Continue chronic tramadol. She does also use oxycodone prn for severe pain. Central Venous Access Medical Necessity for Access: IV Access, Medication Administration Exam Sepsis Risk: No Definite Risk SHANNON MILLER DO Apr 25, 2018 10:52
[2018-04-25 11:52] VITALS: BP 130/65
[2018-04-25] MEDS: traMADol 50 MG TAB PO PRN (12:56)
[2018-04-25 15:38] VITALS: BP 129/75
[2018-04-25 19:53] VITALS: BP 152/75
[2018-04-26] MEDS: methylPREDNIS SUCC 125 MG/2ML IVP SCH ×4 (00:19→20:57)
[2018-04-26 02:24] VITALS: BP 142/69
[2018-04-26] MEDS: oxyCODONE HCL 5 MG CAP PO PRN ×2 (03:06→15:23)
[2018-04-26] MEDS: traMADol 50 MG TAB PO PRN ×2 (04:36→19:52)
[2018-04-26 05:40] LABS: PLATELET COUNT, AUTOMATED 450 K/uL (150-450)
[2018-04-26 08:15] VITALS: BP 152/81
[2018-04-26] MEDS: ASPIRIN 81 MG ENTERIC COATED PO SCH (08:19)
[2018-04-26] MEDS: ENOXAPARIN 40 MG/0.4ML SYR SC SCH (08:19)
[2018-04-26] MEDS: GABAPENTIN 300 MG CAP PO SCH ×2 (08:20→20:57)
[2018-04-26] MEDS: PANTOPRAZOLE SOD 40 MG TABEC PO SCH (08:20)
--- NOTE | 2018-04-26 08:52 | NUR ---
Physical Therapy Impression Non-billable visit completed with OT capturing charges today. Pt agreeable to therapy session, complaining of cough this morning. Pt completed supine to sit with SBA and sat at EOB with SBA x5 minutes. CGA for stand pivot transfer from bed to chair. Pt is nearing baseline level of functional mobility. Rec [facility] at d/c. Physical Therapy Goals 1. Pt to be Min/CGA for opzmj-cslb-qqpey transfers to/from a variety of surfaces with improved balance and use of FWW 2. Pt to be CGA/SBA for bed mobility and supine <> sit transfers 3. Pt to ambulate x 15' with CGA and FWW Patient's Goals
[2018-04-26] MEDS: OSELTAMIVIR PHOS 30 MG CAP PO SCH ×2 (09:09→20:56)
--- NOTE | 2018-04-26 11:39 | Hospitalist Progress Note ---
Subjective Progress Notes Subjective This patient was admitted for influenza. She had no acute events overnight. Patient Complains of: Cardiovascular: No: Chest Pain Respiratory: No: Shortness of Breath Physical Exam Vital Signs Date Time Temp Pulse Resp B/P (MAP) Pulse Ox O2 Delivery O2 Flow Rate FiO2 04/26/18 08:27 92 Nasal Cannula 3.0 04/26/18 08:15 98.4 77 16 152/81 (104) 04/25/18 15:38 55.0 Intake and Output 04/26/18 01:00 Intake Total 905 ml Balance 905 ml Intake Oral 500 ml IV Total 405 ml # Voids 4 # Bowel Movements 1 General Appearance: Alert, Awake, No Acute Distress, Afebrile Neuro: No Gross deficits Cardiovascular: Regular Rate and Rhythm Respiratory: No Respiratory Distress, Other (expiratory wheezes present) Extremities: Warm, Perfused; No Edema Psych: Alert & Oriented X3, Appropriate Mood & Affect Result Diagram: 04/26/1851804/26/18518 Assessment and Plan Problems: (1) Influenza A Status: Acute Assessment & Plan: She did test positive for influenza A. She has been started on Tamiflu. (2) Demand ischemia Status: Acute Assessment & Plan: Her troponin was elevated on admission, but has been trending down. Her EKG did not show any ischemic changes and she has not complained of chest pain. She is on aspirin. (3) COPD (chronic obstructive pulmonary disease) Status: Chronic Assessment & Plan: She is receiving nebulizers and IV steroids. (4) Chronic pain Status: Chronic Assessment & Plan: Continue chronic tramadol. She does also use oxycodone prn for severe pain. Central Venous Access Medical Necessity for Access: IV Access, Medication Administration Exam Sepsis Risk: No Definite Risk CJ HOUSER ELECTRONICS TEACHER Apr 26, 2018 11:39
--- NOTE | 2018-04-26 11:51 | NUR ---
Occupational Therapy Impression Pt alert and agreeable to tx with encouragement. SBA bed mobility supine to sit. Independent seated EOB [id number]. SBA stand pivot to chair with RW. SpO2 WNL on 3L throughout. Pt declining further ADLs. Recommend discharge home with continued HH services when medically appropriate. Occupational Therapy Goals 1. Pt. to perform dressing activities with Min A. 2. Pt. to perform showering activities with Min A. 3. Pt. to perform toileting activities with Min A. 4. Pt. to perform grooming activities with I. Patient's Goal
[2018-04-26] MEDS: ALBUTEROL/IPRATROPIUM 3 ML NEB NEB PRN (14:17)
[2018-04-26 15:25] VITALS: BP 128/92
[2018-04-26] MEDS: LEVOFLOXACIN/D5W 750 MG/150 ML 150 ML IVPB SCH (18:53)
[2018-04-26 19:55] VITALS: BP 146/108
[2018-04-26 23:37] VITALS: BP 166/83
[2018-04-27 02:11] VITALS: BP 178/90
[2018-04-27 07:39] VITALS: BP 153/72
[2018-04-27] MEDS: OSELTAMIVIR PHOS 30 MG CAP PO SCH (09:29)
[2018-04-27] MEDS: ASPIRIN 81 MG ENTERIC COATED PO SCH (09:29)
[2018-04-27] MEDS: GABAPENTIN 300 MG CAP PO SCH ×2 (09:29→20:26)
[2018-04-27] MEDS: ENOXAPARIN 40 MG/0.4ML SYR SC SCH (09:29)
[2018-04-27] MEDS: ACETAMINOPHEN 325 MG TAB PO PRN (09:29)
[2018-04-27] MEDS: PANTOPRAZOLE SOD 40 MG TABEC PO SCH (09:29)
[2018-04-27] MEDS: ALBUTEROL/IPRATROPIUM 3 ML NEB NEB SCH ×3 (09:44→16:55)
[2018-04-27] MEDS: methylPREDNIS SUCC 125 MG/2ML IVP SCH (10:07)
[2018-04-27] MEDS: oxyCODONE HCL 5 MG CAP PO PRN (10:25)
--- NOTE | 2018-04-27 10:36 | Hospitalist Progress Note ---
Subjective Progress Notes Subjective She was admitted with influenza and COPD exacerbation. She reports improvement in lung symptoms, but has pain from fistula in abdomen which has been under treatment. Patient Complains of: Cardiovascular: No: Chest Pain Respiratory: No: Shortness of Breath Physical Exam Vital Signs Date Time Temp Pulse Resp B/P (MAP) Pulse Ox O2 Delivery O2 Flow Rate FiO2 04/27/18 09:46 86 18 04/27/18 09:41 94 Nasal Cannula 3.0 04/27/18 07:39 98.1 153/72 (99) 04/25/18 15:38 55.0 Intake and Output 04/27/18 01:00 Intake Total 630 ml Balance 630 ml Intake Oral 480 ml IV Total 150 ml # Voids 5 # Bowel Movements 2 General Appearance: Alert, Awake, No Acute Distress, Afebrile Neuro: No Gross deficits Cardiovascular: Regular Rate and Rhythm Respiratory: No Respiratory Distress, Other (minor expiratory wheezes) GI: Soft and Non-Tender Extremities: Warm, Perfused; No Edema Psych: Alert & Oriented X3, Appropriate Mood & Affect Result Diagram: 04/26/1851804/26/18518 Assessment and Plan Problems: (1) Influenza A Status: Acute Assessment & Plan: She did test positive for influenza A. She has been started on Tamiflu. (2) Demand ischemia Status: Acute Assessment & Plan: Her troponin was elevated on admission, but has been trending down. Her EKG did not show any ischemic changes and she has not complained of chest pain. She is on aspirin. (3) COPD (chronic obstructive pulmonary disease) Status: Chronic Assessment & Plan: She is receiving nebulizers and IV steroids. (4) Chronic pain Status: Chronic Assessment & Plan: Continue chronic tramadol. She does also use oxycodone prn for severe pain. (5) Enterovesical fistula Status: Chronic Assessment & Plan: She has drainage from her urinary system. She reports she has been treated by Dr. Sandy and Dr. Morales. She will have to follow up with Dr. Sandy as an outpatient. Central Venous Access Medical Necessity for Access: IV Access, Medication Administration Exam Sepsis Risk: No Definite Risk CJ HOUSER CREDIT UNION TELLER Apr 27, 2018 10:36
[2018-04-27 10:50] VITALS: BP 159/73
--- NOTE | 2018-04-27 12:47 | NUR ---
Occupational Therapy Impression Pt alert and agreeable to OT tx upon 2nd attempt this date. Independent bed mobility in/out. Pt declining ADLs, agreeable to tx if she could complete marching in sit<>stand lift. Marching in sit<>stand completed [id number]. Blood pressure increased to 174/91. Pt asymptomatic, returned to supine in bed. SpO2 WNL on 3L. Rec home with continued HH services when medically appropriate. Occupational Therapy Goals 1. Pt. to perform dressing activities with Min A. 2. Pt. to perform showering activities with Min A. 3. Pt. to perform toileting activities with Min A. 4. Pt. to perform grooming activities with I. Patient's Goal
[2018-04-27 13:01] VITALS: BMI 17.6
--- NOTE | 2018-04-27 13:31 | NUR ---
Physical Therapy Impression Pt reports that she slept very little last night, but is agreeable to therapy session. Pt dionna to stand with CGA, but once standing at EOB is retropulsive, requiring Aren to maintain upright balance. Pt reports that she is unaware that she is leaning backwards. SBA for bed mobility. VSS throughout session, rec [facility] at d/c. Physical Therapy Goals 1. Pt to be Min/CGA for rtcsh-qibm-lpwlr transfers to/from a variety of surfaces with improved balance and use of FWW 2. Pt to be CGA/SBA for bed mobility and supine <> sit transfers 3. Pt to ambulate x 15' with CGA and FWW Patient's Goals
[2018-04-27] MEDS: traMADol 50 MG TAB PO PRN (16:02)
[2018-04-27 16:05] VITALS: BP 140/80
[2018-04-27 19:36] VITALS: BP 140/76
[2018-04-27] MEDS: LEVOFLOXACIN 500 MG TAB PO SCH (20:26)
[2018-04-28 01:01] VITALS: BP 143/69
[2018-04-28] MEDS: traMADol 50 MG TAB PO PRN ×2 (01:01→19:53)
[2018-04-28] MEDS ORDERED: ALTEPLASE RECOMB 2 MG VIAL IVP ONE (03:15)
[2018-04-28] MEDS ORDERED: WATER STERILE 10 ML VIAL IVP ONE (03:20)
[2018-04-28] MEDS: ALBUTEROL/IPRATROPIUM 3 ML NEB NEB SCH ×4 (05:56→16:59)
[2018-04-28 06:22] LABS: PLATELET COUNT, AUTOMATED 443 K/uL (150-450)
[2018-04-28] MEDS: ACETAMINOPHEN 325 MG TAB PO PRN (06:35)
[2018-04-28] MEDS ORDERED: NS(*) 0.9% 250 ML BAG 0 ML ONE (07:58)
[2018-04-28 08:03] VITALS: BP 138/72
[2018-04-28] MEDS: methylPREDNIS SUCC 125 MG/2ML IVP SCH (08:10)
[2018-04-28] MEDS: ENOXAPARIN 40 MG/0.4ML SYR SC SCH (08:11)
[2018-04-28] MEDS: PANTOPRAZOLE SOD 40 MG TABEC PO SCH (08:11)
[2018-04-28] MEDS: GABAPENTIN 300 MG CAP PO SCH ×2 (08:11→21:46)
[2018-04-28] MEDS: ASPIRIN 81 MG ENTERIC COATED PO SCH (08:11)
[2018-04-28] MEDS: KCL (*) 20 MEQ/100 ML PREMIX 100 ML IV SCH ×2 (08:12→12:38)
--- NOTE | 2018-04-28 11:52 | Hospitalist Progress Note ---
Subjective Progress Notes Subjective This patient was admitted for influenza. She had no acute events overnight. Patient Complains of: Cardiovascular: No: Chest Pain Respiratory: No: Shortness of Breath Physical Exam Vital Signs Date Time Temp Pulse Resp B/P (MAP) Pulse Ox O2 Delivery O2 Flow Rate FiO2 04/28/18 08:59 95 16 04/28/18 08:53 93 Nasal Cannula 2.0 04/28/18 08:03 98.4 138/72 (94) 04/25/18 15:38 55.0 Intake and Output 04/28/18 07:00 Intake Total 356 ml Balance 356 ml Intake Oral 356 ml # Voids 1 Cardiovascular: Regular Rate and Rhythm Respiratory: Clear to Auscultation Result Diagram: 04/28/18 0507 04/28/18 0507 Assessment and Plan Problems: (1) Influenza A Status: Acute Assessment & Plan: She did test positive for influenza A. She has completed a course of Tamiflu. (2) Demand ischemia Status: Acute Assessment & Plan: Her troponin was elevated on admission, but has been trending down. Her EKG did not show any ischemic changes and she has not complained of chest pain. She is on aspirin. (3) COPD (chronic obstructive pulmonary disease) Status: Chronic Assessment & Plan: She is receiving nebulizers and IV steroids. We converted her to oral steroids today. (4) Chronic pain Status: Chronic Assessment & Plan: Continue chronic tramadol. She does also use oxycodone prn for severe pain. (5) Enterovesical fistula Status: Chronic Assessment & Plan: She has drainage from her urinary system. She reports she has been treated by Dr. Sandy and Dr. Morales. She will have to follow up with Dr. Sandy as an outpatient. (6) Hypokalemia Status: Acute Assessment & Plan: She is scheduled to receiving IV potassium today. Central Venous Access Medical Necessity for Access: IV Access, Medication Administration Exam Sepsis Risk: No Definite Risk SHANNON MILLER DO Apr 28, 2018 11:52
[2018-04-28 14:54] VITALS: BP 128/69
[2018-04-28] MEDS: oxyCODONE HCL 5 MG CAP PO PRN (15:54)
[2018-04-28] MEDS: LEVOFLOXACIN 500 MG TAB PO SCH (19:53)
[2018-04-28 20:06] VITALS: BP 140/76
[2018-04-28 22:59] VITALS: BP 142/82
[2018-04-29 02:50] VITALS: BP 154/81
[2018-04-29] MEDS: oxyCODONE HCL 5 MG CAP PO PRN ×2 (03:00→16:26)
[2018-04-29] MEDS: ALBUTEROL/IPRATROPIUM 3 ML NEB NEB SCH ×4 (05:59→16:51)
[2018-04-29 08:47] VITALS: BP 153/82
[2018-04-29] MEDS: GABAPENTIN 300 MG CAP PO SCH ×2 (08:49→20:58)
[2018-04-29] MEDS: ENOXAPARIN 40 MG/0.4ML SYR SC SCH (08:49)
[2018-04-29] MEDS: PANTOPRAZOLE SOD 40 MG TABEC PO SCH (08:49)
[2018-04-29] MEDS: predniSONE 20 MG TAB PO SCH (08:49)
[2018-04-29] MEDS: ASPIRIN 81 MG ENTERIC COATED PO SCH (08:49)
[2018-04-29 08:51] VITALS: Ht 157.5 cm; Wt 43.6 kg
[2018-04-29] MEDS: ACETAMINOPHEN 325 MG TAB PO PRN (11:21)
[2018-04-29] MEDS: traMADol 50 MG TAB PO PRN (12:28)
--- NOTE | 2018-04-29 12:47 | Hospitalist Progress Note ---
Subjective Progress Notes Subjective She reports "a little headachey" otherwise no complaints. No fever. Physical Exam Vital Signs Date Time Temp Pulse Resp B/P (MAP) Pulse Ox O2 Delivery O2 Flow Rate FiO2 04/29/18 09:19 104 17 04/29/18 09:14 93 High-Flow Nasal Cannula 2.0 04/29/18 08:47 98.4 153/82 (105) 04/25/18 15:38 55.0 Intake and Output 04/29/18 06:59 Intake Total 200 ml Output Total 200 ml Balance 0 ml Intake Oral 100 ml IV Total 100 ml Output Stool Total 200 ml # Voids 3 General Appearance: Alert, Awake Cardiovascular: Regular Rate and Rhythm Respiratory: Other (fairly clear with just a few rales at bases) GI: Soft and Non-Tender Extremities: Warm, Perfused Integumentary: Generalized Fragile Skin Psych: Alert & Oriented X3 Result Diagram: 04/28/18 0507 04/28/18 1621 Assessment and Plan Problems: (1) Influenza A Status: Acute Assessment & Plan: She did test positive for influenza A. She has completed a course of Tamiflu. (2) Demand ischemia Status: Acute Assessment & Plan: Her troponin was elevated on admission, but has been trending down. Her EKG did not show any ischemic changes and she has not complained of chest pain. She is on aspirin. (3) COPD (chronic obstructive pulmonary disease) Status: Chronic Assessment & Plan: She is receiving nebulizers and IV steroids. We converted her to oral steroids. (4) Chronic pain Status: Chronic Assessment & Plan: Continue chronic tramadol. She does also use oxycodone prn for severe pain. (5) Enterovesical fistula Status: Chronic Assessment & Plan: She has a current infection with Citrobacter. She is on Levaquin. She reports she has been treated by Dr. Sandy and Dr. Morales. She will have to follow up with Dr. Sandy as an outpatient. (6) Hypokalemia Status: Acute Assessment & Plan: Resolved. She received IV potassium supplement yesterday. Central Venous Access Medical Necessity for Access: IV Access, Medication Administration Exam Sepsis Risk: No Definite Risk ASHLEY BLOCK MD Apr 29, 2018 12:47
[2018-04-29 15:28] VITALS: BP 150/71
[2018-04-29 20:03] VITALS: BP 141/88
[2018-04-29] MEDS: LEVOFLOXACIN 500 MG TAB PO SCH (20:58)
[2018-04-30] MEDS: oxyCODONE HCL 5 MG CAP PO PRN ×2 (01:27→14:39)
[2018-04-30] MEDS: traMADol 50 MG TAB PO PRN (04:11)
[2018-04-30] MEDS: ALBUTEROL/IPRATROPIUM 3 ML NEB NEB SCH ×3 (06:10→13:09)
[2018-04-30 06:55] VITALS: BP 150/68
[2018-04-30 07:58] VITALS: BP 152/80
[2018-04-30] MEDS: predniSONE 20 MG TAB PO SCH (09:14)
[2018-04-30] MEDS: PANTOPRAZOLE SOD 40 MG TABEC PO SCH (09:14)
[2018-04-30] MEDS: ASPIRIN 81 MG ENTERIC COATED PO SCH (09:14)
[2018-04-30] MEDS: GABAPENTIN 300 MG CAP PO SCH (09:14)
[2018-04-30] MEDS: ENOXAPARIN 40 MG/0.4ML SYR SC SCH (09:24)
--- NOTE | 2018-04-30 09:58 | NUR ---
Pt had questions regarding a bill she received for around $81, pt reporting she believes this was paid and is concerned the payment did not go through and she has an outstanding balance. JOSE R spoke with Anna in business office who reports pt has no balance at present. JOSE R notified pt and encouraged her to call if she has additional concerns regarding her bills.
[2018-04-30] MEDS ORDERED: KCL (*) 20 MEQ/100 ML PREMIX 100 ML IV SCH (11:00)
[2018-04-30] MEDS ORDERED: NS(*) 0.9% 500 ML BAG 500 ML ONE (11:58)
[2018-04-30] MEDS ORDERED: POTASSIUM CHL 20 MEQ TABCR PO ONE (12:45)
[2018-04-30] MEDS ORDERED: PRED20TA6 PO (13:03)
--- NOTE | 2018-04-30 13:12 | Hospitalist Depart ---
Discharge Summary Reason for Hosp/Final Diag: (1) Influenza A Status: Acute Hospital Course & Plan: She did test positive for influenza A. She has completed a course of Tamiflu. (2) Demand ischemia Status: Acute Hospital Course & Plan: Her troponin was elevated on admission, but has been trending down. Her EKG did not show any ischemic changes and she has not complained of chest pain. She is on aspirin. (3) COPD (chronic obstructive pulmonary disease) Status: Chronic Hospital Course & Plan: She received nebulizers and IV steroids. We converted her to oral steroids and discharged with 7 days 20mg prednisone. (4) Chronic pain Status: Chronic Hospital Course & Plan: Continue chronic tramadol. (5) Enterovesical fistula Status: Chronic Hospital Course & Plan: She has a current infection with Citrobacter, completed course Levaquin. She reports she has been treated by Dr. Sandy and Dr. Morales. She will have to follow up with Dr. Sandy as an outpatient. (6) Hypokalemia Status: Acute Hospital Course & Plan: Resolved. Departure Weight (Pounds): 96 Weight (Ounces): 3.0 Result Diagram: 04/28/18 0507 04/30/18 0553 Condition: Improved Home Health RN Follow Up For: Medication Management, Nursing Assessment, Other Home Health MOP MACHINE OPERATOR Follow Up For: ADL Assistance Discharge Instructions Home Meds Active Scripts Prednisone (PREDNISONE) 20 Mg Tablet, 20 MG PO QDAY for 7 Days, #7 TAB Prov:YURI JOEADRIAN DO 04/30/18 Gabapentin (GABAPENTIN) 300 Mg Capsule, 600 MG PO BID for 30 Days, #60 CAPSULE Prov:WELCH HEATHADRIAN DO 02/22/18 Reported Medications Tramadol Hcl (TRAMADOL HCL) 50 Mg Tablet, 50-100 MG PO Q8H 02/22/18 Phenazopyridine Hcl (PHENAZOPYRIDINE HCL) 200 Mg Tablet, 200 MG PO TID PRN for BURNING WITH URINATION, #30 TAB 09/28/17 Pantoprazole Sodium (PANTOPRAZOLE SODIUM) 40 Mg Tablet.dr, 40 MG PO QDAY, #90 TAB.SR 02/19/17 Melatonin (MELATONIN) 3 Mg Tablet, 2 TAB PO PRN 02/17/17 Albuterol Sulfate 0.083% (ALBUTEROL SULFATE 0.083%) 2.5 Mg/3 Ml Vial.neb, 2.5 MG INH QID, INH 02/17/17 Albuterol Sulfate 90 Mcg/Act (PROAIR HFA 90 MCG/ACT) 8.5 Gm Hfa.aer.ad, 2-4 PUFF IH PRN, INHALER 02/17/17 Oxygen (OXYGEN) Inha, 2.5 L INH cont., L 04/24/15 Ropinirole Hcl (ROPINIROLE HCL) 0.5 Mg Tablet, 0.5 MG PO BID PRN for SPASMS take 1/2 tab 2-3 times a day as needed for leg cramps 11/21/13 Aspirin (ASPIRIN) 81 Mg Tab.chew, 81 MG PO QDAY, TAB.CHEW TAKE 1 TABLET BY MOUTH EVERY DAY 11/21/13 Discontinued Reported Medications Sulfamethoxazole/Trimet 800-160 Mg Tab (BACTRIM DS TABLET) 1 Each Tablet, 1 TAB PO Q12H for 4 Days, TAB 04/22/18 Oseltamivir Phosphate (TAMIFLU) 75 Mg Cap, 75 MG PO, CAP on a 5 day course. started on 04/19/18 04/22/18 Discontinued Scripts Oxycodone Hcl/Acetaminophen (OXYCODONE-ACETAMINOPHEN 5-325) 1 Each Tablet, 1 TAB PO Q4H PRN for PAIN, #20 TAB Prov:SHANNON MILLER DO 10/17/17 Special Instructions: Follow up with Dr Sandy as previously scheduled. Schedule follow up with PCP within one week. Copies to: SAJAN WEN DO ; Venous Thromboembolism Antithrombotics Is Pt On Any Antithrombotics?: Yes [id number] Certification Face to Face Home Health Certification Patient's Primary Care Provider: Sajan Wen DO Institutional Provider conducted the [id number] encounter. Electronic Undersigning Physician Certifies Home Health. I certify that the patient has been under my care and that I had a [id number] encounter that meets the physician [id number] encounter requirements with this patient. This patient is home-bound due to safety issues and continues to require assistance with ADL's. I certify that based on my findings, that Nursing, Aides and the following Home Health services are medically necessary: Medical Necessity: Nursing, Rehab Date Face to Face Conducted: Apr 30, 2018 ADRIAN STALEY DO Apr 30, 2018 13:12
== END 2018-04-30 15:05 | disposition home health service (06) | DRG 194 ==
LOC: ER 14:14 → MED 15:49 → ICU 15:50 → MED 04-23 16:30
PROVIDERS: ADMIT Internal Medicine; ATTEND Internal Medicine
PROC: 5A09357 Assistance with Respiratory Ventilation, Less than 24 Consecutive Hours, Continuous Positive Airway Pressure (ICD-10-PCS; principal; 2018-04-22)
DX: J10.1 Influenza due to other identified influenza virus with other respiratory manifestations (principal); I24.8 Other forms of acute ischemic heart disease; N32.1 Vesicointestinal fistula; J44.1 Chronic obstructive pulmonary disease with (acute) exacerbation; G89.29 Other chronic pain; I10 Essential (primary) hypertension; E87.6 Hypokalemia; E78.00 Pure hypercholesterolemia, unspecified; K21.9 Gastro-esophageal reflux disease without esophagitis; Z88.5 Allergy status to narcotic agent; Z91.040 Latex allergy status; Z88.8 Allergy status to other drugs, medicaments and biological substances; Z87.891 Personal history of nicotine dependence
CPT/HCPCS: 36416; 36600; 71045; 82040; 82247; 82248; 82310; 82374; 82435; 82565; 82803; 82947; 82948; 83605; 83880; 84075; 84132; 84155; 84295; 84450; 84460; 84484; 84520; 85025; 87502; 93005; 94640; 94660; 94667; 94668; 96361; 96374; 97162; 97166; 99285; A4216; J1650; J1956; J2930; J2997; J3480; J7030; J7040; J7512; J7613

== ENCOUNTER → 2018-04-22 | Outpatient (CLI) | payer MEDICARE ==
[2018-02-16 10:31] VITALS: BMI 16.6
[~2018-04-22] MED LIST changes: +PRED20TA6 PO
== END ==
LOC: AMB 13:17
PROVIDERS: ATTEND Nurse Practitioner
DX: R06.82 Tachypnea, not elsewhere classified (principal); R05 Cough; R53.1 Weakness; R53.83 Other fatigue; R09.02 Hypoxemia
CPT/HCPCS: A0425; A0427

== ENCOUNTER → 2018-05-05 | Outpatient (REF) | payer MEDICARE ==
[2018-04-29 08:51] VITALS: BMI 17.6
[~2018-05-05] MED LIST changes: +OSE75 PO; +PRED20TA6 PO
== END ==
LOC: ZZSENDIN 16:29
PROVIDERS: ATTEND Surgery
DX: N32.1 Vesicointestinal fistula (principal); R94.5 Abnormal results of liver function studies; I10 Essential (primary) hypertension; R63.4 Abnormal weight loss; R53.1 Weakness; K63.2 Fistula of intestine
CPT/HCPCS: 82040; 82247; 82248; 82310; 82374; 82435; 82565; 82947; 83735; 84075; 84100; 84132; 84155; 84295; 84450; 84460; 84520; 85027

== ENCOUNTER → 2018-05-10 | Outpatient (CLI) | payer MEDICARE ==
[2018-04-29 08:51] VITALS: BMI 17.6
[2018-05-10 16:45] LABS: PLATELET COUNT, AUTOMATED 437 K/uL (150-450)
== END ==
LOC: SPU 16:21
PROVIDERS: ATTEND Family Medicine
DX: R05 Cough (principal)
CPT/HCPCS: 36592; 85025

== ENCOUNTER → 2018-05-10 | Outpatient (CLI) | payer MEDICARE ==
[2018-04-29 08:51] VITALS: BMI 17.6
--- NOTE | 2018-05-10 17:26 | RADIOLOGY IMAGING REPORT ---
FACILITY: [facility] PATIENT NAME: Pamela Correa : 1940 MR: [id number] V: [id number] EXAM DATE: ORDERING PHYSICIAN: EUN ARCHULETA TECHNOLOGIST: Location: [facility] [place] Patient: Pamela Correa : 1940 Visit/Account:[id number] Date of Sevice: 05/10/2018 Examination: CHEST PA LAT Comparison: 04/23/2018 and earlier. History: Cough. Findings: Left upper extremity PICC is unchanged. Cardiac and hilar contour size is within normal glover its. Thoracic aortic atherosclerosis. Moderate-sized gas and fluid-filled hiatal hernia. Hyperexpansion. No new or enlarging consolidation or nodule. Pneumothorax, edema, or effusion. Demineralization with mid thoracic spine chronic appearing compression. Vertebral body compression cobos s slightly progressed since 02/18/2017. IMPRESSION: 1. No findings of acute cardiopulmonary disease. 2. Moderate-sized hiatal hernia. 3. Demineralization. Multilevel thoracic spine compression fractures have slightly progressed since and correlation with any clinical evidence of acute thoracic pain is recommended. Report Dictated By: Ghassan Keenan MD at 05/10/2018 5:06 PM Report E-Signed By: Ghassan Keenan MD at 05/10/2018 5:21 PM WSN:[id number]
== END ==
LOC: RAD 16:43
PROVIDERS: ATTEND Family Medicine
DX: R05 Cough (principal)
CPT/HCPCS: 71046

== ENCOUNTER → 2018-05-13 | Outpatient (REF) | payer MEDICARE ==
[2018-04-29 08:51] VITALS: BMI 17.6
== END ==
LOC: ZZLCC 15:56
PROVIDERS: ATTEND Surgery
DX: N32.1 Vesicointestinal fistula (principal); R94.5 Abnormal results of liver function studies; I10 Essential (primary) hypertension; R63.4 Abnormal weight loss; R53.1 Weakness; K63.2 Fistula of intestine
CPT/HCPCS: 82040; 82247; 82248; 82310; 82374; 82435; 82565; 82947; 83735; 84075; 84100; 84132; 84155; 84295; 84450; 84460; 84520; 85027

== ENCOUNTER → 2018-05-17 | Outpatient (REF) | payer MEDICARE ==
[2018-04-29 08:51] VITALS: BMI 17.6
== END ==
LOC: ZZSENDIN 14:33
PROVIDERS: ATTEND Surgery
DX: N32.1 Vesicointestinal fistula (principal); R94.5 Abnormal results of liver function studies; I10 Essential (primary) hypertension; R63.4 Abnormal weight loss; R53.1 Weakness; K63.2 Fistula of intestine
CPT/HCPCS: 82040; 82247; 82248; 82310; 82374; 82435; 82565; 82947; 83735; 84075; 84100; 84132; 84155; 84295; 84450; 84460; 84520; 85027

== ENCOUNTER → 2018-05-20 | Outpatient (REF) | payer MEDICARE ==
[2018-04-29 08:51] VITALS: BMI 17.6
== END ==
LOC: ZZSENDIN 17:20
PROVIDERS: ATTEND Surgery
DX: N32.1 Vesicointestinal fistula (principal); R94.5 Abnormal results of liver function studies; I10 Essential (primary) hypertension; R63.4 Abnormal weight loss; R53.1 Weakness; K63.2 Fistula of intestine
CPT/HCPCS: 82040; 82247; 82248; 82310; 82374; 82435; 82565; 82947; 83735; 84075; 84100; 84132; 84155; 84295; 84450; 84460; 84520; 85027

== ENCOUNTER → 2018-05-27 | Outpatient (REF) | payer MEDICARE ==
[2018-04-29 08:51] VITALS: BMI 17.6
== END ==
LOC: ZZIMHLAB 15:45
PROVIDERS: ATTEND Surgery
DX: N32.1 Vesicointestinal fistula (principal); R94.5 Abnormal results of liver function studies; I10 Essential (primary) hypertension; R63.4 Abnormal weight loss; R53.1 Weakness; K63.2 Fistula of intestine
CPT/HCPCS: 82040; 82247; 82248; 82310; 82374; 82435; 82565; 82947; 83735; 84075; 84100; 84132; 84155; 84295; 84450; 84460; 84520; 85027

== ENCOUNTER → 2018-06-03 | Outpatient (REF) | payer MEDICARE ==
[2018-04-29 08:51] VITALS: BMI 17.6
== END ==
LOC: ZZLCC 14:02
PROVIDERS: ATTEND Surgery
DX: N32.1 Vesicointestinal fistula (principal); R94.5 Abnormal results of liver function studies; I10 Essential (primary) hypertension; R63.4 Abnormal weight loss; R53.1 Weakness; K63.2 Fistula of intestine
CPT/HCPCS: 82040; 82247; 82248; 82310; 82374; 82435; 82565; 82947; 83735; 84075; 84100; 84132; 84155; 84295; 84450; 84460; 84520; 85027

== ENCOUNTER → 2018-06-09 | Outpatient (REF) | payer MEDICARE ==
[2018-04-29 08:51] VITALS: BMI 17.6
== END ==
LOC: ZZSENDIN 14:15
PROVIDERS: ATTEND Surgery
DX: N32.1 Vesicointestinal fistula (principal); R94.5 Abnormal results of liver function studies; I10 Essential (primary) hypertension; R63.4 Abnormal weight loss; R53.1 Weakness; K63.2 Fistula of intestine
CPT/HCPCS: 82040; 82247; 82248; 82310; 82374; 82435; 82565; 82947; 83735; 84075; 84100; 84132; 84155; 84295; 84450; 84460; 84520; 85027

== ENCOUNTER → 2018-06-16 | Outpatient (REF) | payer MEDICARE ==
[2018-04-29 08:51] VITALS: BMI 17.6
== END ==
LOC: ZZSENDIN 13:43
PROVIDERS: ATTEND Surgery
DX: N32.1 Vesicointestinal fistula (principal); R94.5 Abnormal results of liver function studies; I10 Essential (primary) hypertension; R63.4 Abnormal weight loss; R53.1 Weakness; K63.2 Fistula of intestine
CPT/HCPCS: 82040; 82247; 82248; 82310; 82374; 82435; 82565; 82947; 83735; 84075; 84100; 84132; 84155; 84295; 84450; 84460; 84520; 85027

== ENCOUNTER → 2018-06-18 | Outpatient (CLI) | payer MEDICARE ==
[2018-04-29 08:51] VITALS: BMI 17.6
== END ==
LOC: LAB 15:20
PROVIDERS: ATTEND Surgery
DX: R19.7 Diarrhea, unspecified (principal)
CPT/HCPCS: 83630; 87045; 87177; 87205; 87493

== ENCOUNTER → 2018-06-23 | Outpatient (REF) | payer MEDICARE ==
[2018-04-29 08:51] VITALS: BMI 17.6
== END ==
PROVIDERS: ATTEND Surgery
DX: N32.1 Vesicointestinal fistula (principal); R94.5 Abnormal results of liver function studies; I10 Essential (primary) hypertension; R63.4 Abnormal weight loss; R53.1 Weakness; K63.2 Fistula of intestine
CPT/HCPCS: 82040; 82247; 82248; 82310; 82374; 82435; 82565; 82947; 83735; 84075; 84100; 84132; 84155; 84295; 84450; 84460; 84520; 85027

== ENCOUNTER → 2018-06-30 | Outpatient (REF) | payer MEDICARE ==
[2018-04-29 08:51] VITALS: BMI 17.6
== END ==
PROVIDERS: ATTEND Surgery
DX: N32.1 Vesicointestinal fistula (principal); R94.5 Abnormal results of liver function studies; I10 Essential (primary) hypertension; R63.4 Abnormal weight loss; R53.1 Weakness; K63.2 Fistula of intestine
CPT/HCPCS: 82040; 82247; 82248; 82310; 82374; 82435; 82565; 82947; 83735; 84075; 84100; 84132; 84155; 84295; 84450; 84460; 84520; 85027

== ENCOUNTER → 2018-07-02 | Outpatient (CLI) | payer MEDICARE ==
[2018-04-29 08:51] VITALS: BMI 17.6
--- NOTE | 2018-07-02 08:55 | RADIOLOGY IMAGING REPORT ---
FACILITY: [facility] PATIENT NAME: Pamela Correa : 1940 MR: [id number] V: [id number] EXAM DATE: ORDERING PHYSICIAN: SHANNON REECE TECHNOLOGIST: [place] [facility] [place] : 1940 Visit/Account:[id number] Date of Sevice: 07/02/2018 Exam type: CHEST PA LAT History: Shortness of breath productive cough had pneumonia in April Comparison: May 10, 2018. Findings: There has been development of a small right pleural effusion. Slight increase in the airspace consol idation right lung base consistent with atelectasis and or developing infiltrate. Hyperinflation thr oughout the lungs again noted. There is a large hiatal hernia with an air-fluid level. The cardiac silhouette is normal in size. There is a left PICC line with the distal tip projecting at the caval atrial junction. Osteopenia thoracic spine with multiple compression fractures again noted IMPRESSION: 1. Interval development of a small right pleural effusion and small amount of airspace consolidation in the right lung base consistent with atelectasis and or developing infiltrate Large hiatal hernia Report Dictated By: Sheila Cooper MD at 07/02/2018 8:46 AM Report E-Signed By: Sheila Cooper MD at 07/02/2018 8:48 AM [email or web address]
--- NOTE | 2018-07-02 11:24 | RADIOLOGY IMAGING REPORT ---
[place] [facility] [place] NAME: Pamela Correa : 1940 MR: [id number] V: [id number] EXAM DATE: ORDERING PHYSICIAN: SHANNON REECE TECHNOLOGIST: Location: [facility] [place] Patient: Pamela Correa : 1940 Visit/Account:[id number] Date of Sevice: 07/02/2018 CT ABDOMEN PELVIS W/O CON HISTORY: Abdomen pain for years, ostomy since 2013 TECHNIQUE: Axial images acquired through the abdomen/pelvis. Coronal and sagittal reformatting also performed. No IV contrast administered.Dose Lowering Technique One of the following dose optimization techniques was utilized in the performance of this exam: Autom ated exposure control; adjustment of the mA and/or kV according to the patient's size; or use of an i terative reconstruction technique. Specific details can be referenced in the facility's radiology C T exam operational policy. COMPARISON: February 16, 2018 FINDINGS: Visualized lung bases: There is a small posterior layering right pleural effusion with compressive a telectasis/infiltrate in the adjacent right lower lobe. There is a small amount of chronic atelectas is in the inferior lingula and posterior medial left lower lobe Hepatobiliary: Hyperdense material within the gallbladder may represent stones or sludge. There is no evidence of biliary ductal dilatation Spleen: Negative. Adrenals: Negative. Pancreas: Negative. Kidneys ureters and bladder: Right renal cysts again noted.. Previously noted 3 mm mid pole left zunilda al calculus is no longer seen. There is no evidence of hydronephrosis or hydroureter. The bladder is mostly decompressed although a moderate amount of air is again noted in the anterior p ortion of the bladder Genitalia: Negative. GI: There is a staple line in the sigmoid colon from Susan pouch. There is a colostomy in the le ft midabdomen. There is a small peristomal hernia containing fat. There is an additional bowel anas tomosis. There is a large hiatal hernia which is incompletely imaged in the right lower quadrant Vessels/spaces/nodes: Extensive atherosclerotic calcifications are seen throughout the abdomen and p hilda Bones/soft tissues: There is a scoliosis of the lumbar spine and extensive spondylotic changes inclu ding severe disc space narrowing at L4-5 and a 8 mm anterolisthesis of L4 with respect L5 Additional findings: None pertinent. IMPRESSION: There is a small posterior layering right pleural effusion with compressive atelectasis/infiltrate in the adjacent right lower lobe. Small amount of chronic atelectasis in the inferior lingula and posterior medial left lower lobe Gallbladder stones and/or sludge although no evidence of biliary ductal dilatation Previously noted 3 mm mid pole left renal calculus is no longer seen The bladder is mostly decompressed although a moderate amount of air is again seen within the anterio r portion the bladder. This may represent iatrogenic changes from a recent catheterization/instrumen tation or infection with gas-forming organism or vesicle colonic/enteric fistula Postsurgical changes with a colostomy in the left mid abdomen. There is a small peristomal hernia co ntaining fat Large hiatal hernia Additional chronic findings as described Report Dictated By: Sheila Cooper MD at 07/02/2018 9:12 AM Report E-Signed By: Sheila Cooper MD at 07/02/2018 11:19 AM [email or web address]
== END ==
LOC: CT 01:13
PROVIDERS: ATTEND Surgery
DX: K44.9 Diaphragmatic hernia without obstruction or gangrene (principal); J90 Pleural effusion, not elsewhere classified; Z90.49 Acquired absence of other specified parts of digestive tract
CPT/HCPCS: 71046; 74176; 93306

== ENCOUNTER → 2018-07-14 | Outpatient (REF) | payer MEDICARE ==
[2018-04-29 08:51] VITALS: BMI 17.6
== END ==
PROVIDERS: ATTEND Surgery
DX: R94.5 Abnormal results of liver function studies (principal); D64.9 Anemia, unspecified; I10 Essential (primary) hypertension
CPT/HCPCS: 82040; 82247; 82248; 82310; 82374; 82435; 82565; 82947; 84075; 84132; 84155; 84295; 84450; 84460; 84520; 85027

== ENCOUNTER → 2018-08-04 | Outpatient (REF) | payer MEDICARE ==
[2018-04-29 08:51] VITALS: BMI 17.6
[~2018-08-04] MED LIST changes: +OXYC-823 PO
[2018-08-04 15:07] LABS: PLATELET COUNT, AUTOMATED 388 K/uL (150-450)
== END ==
LOC: ZZIMHLAB 14:35
PROVIDERS: ATTEND Surgery
DX: R94.5 Abnormal results of liver function studies (principal); R74.8 Abnormal levels of other serum enzymes; N32.1 Vesicointestinal fistula
CPT/HCPCS: 82040; 82247; 82248; 84075; 84155; 84450; 84460; 85025

== ENCOUNTER → 2018-08-11 | Outpatient (REF) | payer MEDICARE ==
[2018-04-29 08:51] VITALS: BMI 17.6
[2018-08-11 14:56] LABS: PLATELET COUNT, AUTOMATED 443 K/uL (150-450)
== END ==
LOC: ZZSENDIN 14:38
PROVIDERS: ATTEND Surgery
DX: R94.5 Abnormal results of liver function studies (principal); R74.8 Abnormal levels of other serum enzymes; N32.1 Vesicointestinal fistula
CPT/HCPCS: 82040; 82247; 82248; 82310; 82374; 82435; 82565; 82947; 83735; 84075; 84132; 84155; 84295; 84450; 84460; 84520; 85025

== ENCOUNTER → 2018-08-18 | Outpatient (REF) | payer MEDICARE ==
[2018-04-29 08:51] VITALS: BMI 17.6
[2018-08-18 13:13] LABS: PLATELET COUNT, AUTOMATED 398 K/uL (150-450)
== END ==
LOC: ZZSENDIN 12:47
PROVIDERS: ATTEND Surgery
DX: N32.1 Vesicointestinal fistula (principal); R94.5 Abnormal results of liver function studies; Z78.9 Other specified health status
CPT/HCPCS: 82040; 82247; 82248; 82310; 82374; 82435; 82565; 82947; 83735; 84075; 84100; 84132; 84155; 84295; 84450; 84460; 84520; 85025